=== PATIENT | male | born 1950 | race Caucasian/White ===

== ENCOUNTER 2020-06-08 07:41 | Outpatient (REF) | payer MEDICARE, SELFPAY ==
[2020-06-08 10:22] LABS: MANUAL DIFF FLAG NO
[2020-06-08 10:30] LABS: Basophils Percent Auto 0.7 % (0-2); Eosinophils Absolute Auto 0.1 X10*3/uL (0.0-0.4); Eosinophils Percent Auto 2.8 % (0-4); Imm Gran Abs Auto 0.03 X10*3/uL (0.00-0.03); Imm Gran Pct Auto 0.7 % (0.0-0.4); Lymphocytes Absolute Auto 0.9 X10*3/uL (1.2-4.9); Lymphocytes Percent Auto 19.7 % (20-40); Mean Corpuscular HGB Conc 32.4 g/dl (31.0-36.0); Mean Corpuscular Hemoglobin 28.9 pg (27.0-33.0); Mean Corpuscular Volume 89.2 fL (80-98); Mean Platelet Volume 10.2 fL (9.4-12.4); Monocytes Absolute Auto 0.6 X10*3/uL (0.1-1.2); Monocytes Percent Auto 13.7 % (2-11); Neutrophils Absolute Auto 2.9 X10*3/uL (2.0-8.3); Neutrophils Percent Auto 62.4 % (45-73); Platelet Count 195 X10*3/uL (160-400); Red Blood Count 4.15 X10*6/uL (4.60-5.80); Red Cell Distribution Width 13.1 % (11.0-16.0); White Blood Count 4.6 X10*3/uL (4.8-10.8)
[2020-06-08 10:51] LABS: Anion Gap 10 (12-20); Blood Urea Nitrogen 8 mg/dL (9-16); Calcium 8.8 mg/dL (8.4-10.2); Carbon Dioxide 28 mmol/L (22-29); Chloride 107 mmol/L (96-108); Estimated Glomerular Filt Rate > 60; Glucose Random 117 mg/dL (60-115); Iron 44 mcg/dL (45-160); Percent Iron Saturation 16 % (15-50); Sodium 141 mmol/L (135-145); Total Iron Binding Capacity 279 mcg/dL (228-428); Unsaturated Iron Binding 235 ug/dL
== END 2020-06-08 07:42 | disposition home or self-care (01) ==
LOC: HO.10HDL 07:41
PROVIDERS: Visit Provider Internal Medicine
DX: D64.9 Anemia, unspecified (principal); E78.00 Pure hypercholesterolemia, unspecified
CPT/HCPCS: 36415; 80048; 83540; 85025

== ENCOUNTER 2020-07-26 07:34 | Outpatient (REF) | payer MEDICARE, BC, SELFPAY ==
[2020-07-26 10:37] LABS: Cholesterol 117 mg/dL; HDL Cholesterol 38 mg/dL; LDL Cholesterol Calculated 58 mg/dl; Triglycerides 107 mg/dL
== END 2020-07-26 07:35 | disposition home or self-care (01) ==
LOC: HO.10HDL 07:34
PROVIDERS: Visit Provider Internal Medicine Cardiovascular Disease
DX: Z95.2 Presence of prosthetic heart valve (principal); Z95.1 Presence of aortocoronary bypass graft
CPT/HCPCS: 80061

== ENCOUNTER 2020-09-11 09:42 | Outpatient (REF) | payer MEDICARE, BC, SELFPAY ==
[2020-09-11 10:03] LABS: MANUAL DIFF FLAG NO
[2020-09-11 10:07] LABS: Basophils Absolute Auto 0.1 X10*3/uL (0.0-0.2); Basophils Percent Auto 1.2 % (0-2); Eosinophils Absolute Auto 0.1 X10*3/uL (0.0-0.4); Eosinophils Percent Auto 3.4 % (0-4); Hematocrit 42.3 % (42-52); Hemoglobin 13.8 g/dl (14.0-18.0); Imm Gran Abs Auto 0.04 X10*3/uL (0.00-0.03); Lymphocytes Percent Auto 25.1 % (20-40); Mean Corpuscular HGB Conc 32.6 g/dl (31.0-36.0); Mean Corpuscular Hemoglobin 28.9 pg (27.0-33.0); Mean Corpuscular Volume 88.5 fL (80-98); Mean Platelet Volume 9.8 fL (9.4-12.4); Monocytes Absolute Auto 0.8 X10*3/uL (0.1-1.2); Monocytes Percent Auto 18.7 % (2-11); Neutrophils Absolute Auto 2.1 X10*3/uL (2.0-8.3); Neutrophils Percent Auto 50.6 % (45-73); Platelet Count 216 X10*3/uL (160-400); Red Blood Count 4.78 X10*6/uL (4.60-5.80); Red Cell Distribution Width 13.2 % (11.0-16.0); White Blood Count 4.1 X10*3/uL (4.8-10.8)
[2020-09-11 10:32] LABS: Alanine Aminotransferase 16 U/L (0-40); Albumin Level 4.4 g/dL (3.5-5.0); Alkaline Phosphatase 91 U/L (39-117); Anion Gap 14 (12-20); Aspartate Amino Transferase 19 U/L (5-37); Bilirubin Total 0.6 mg/dL (0.0-1.0); Blood Urea Nitrogen 10 mg/dL (9-16); Calcium 9.1 mg/dL (8.4-10.2); Carbon Dioxide 28 mmol/L (22-29); Chloride 104 mmol/L (96-108); Estimated Glomerular Filt Rate > 60; Glucose Random 101 mg/dL (60-115); Iron 73 mcg/dL (45-160); Percent Iron Saturation 23 % (15-50); Potassium 4.8 mmol/l (3.3-5.1); Sodium 141 mmol/L (135-145); Total Iron Binding Capacity 318 mcg/dL (228-428); Total Protein 6.9 g/dL (6.5-8.0); Unsaturated Iron Binding 245 ug/dL
[2020-09-11 10:54] LABS: Vitamin D 25-OH Total 42.7 ng/mL (>30)
== END 2020-09-11 09:43 | disposition home or self-care (01) ==
LOC: HO.10HDL 09:42
PROVIDERS: Visit Provider Internal Medicine
DX: D64.9 Anemia, unspecified (principal); L40.9 Psoriasis, unspecified; E55.9 Vitamin D deficiency, unspecified
CPT/HCPCS: 36415; 80053; 82306; 83540; 85025

== ENCOUNTER 2021-01-16 10:24 | Outpatient (REF) | payer MEDICARE, BC, SELFPAY ==
[2021-01-16 10:50] LABS: MANUAL DIFF FLAG NO
[2021-01-16 10:59] LABS: Eosinophils Absolute Auto 0.1 X10*3/uL (0.0-0.4); Eosinophils Percent Auto 3.4 % (0-4); Hematocrit 43.5 % (42-52); Hemoglobin 13.9 g/dl (14.0-18.0); Imm Gran Abs Auto 0.03 X10*3/uL (0.00-0.03); Imm Gran Pct Auto 0.8 % (0.0-0.4); Lymphocytes Absolute Auto 0.9 X10*3/uL (1.2-4.9); Lymphocytes Percent Auto 23.6 % (20-40); Mean Corpuscular Hemoglobin 28.5 pg (27.0-33.0); Mean Corpuscular Volume 89.1 fL (80-98); Mean Platelet Volume 9.9 fL (9.4-12.4); Monocytes Absolute Auto 0.6 X10*3/uL (0.1-1.2); Monocytes Percent Auto 16.8 % (2-11); Neutrophils Absolute Auto 2.1 X10*3/uL (2.0-8.3); Neutrophils Percent Auto 54.4 % (45-73); Platelet Count 222 X10*3/uL (160-400); Red Blood Count 4.88 X10*6/uL (4.60-5.80); Red Cell Distribution Width 12.9 % (11.0-16.0); White Blood Count 3.8 X10*3/uL (4.8-10.8)
[2021-01-16 11:26] LABS: Alanine Aminotransferase 17 U/L (0-40); Albumin Level 4.4 g/dL (3.5-5.0); Alkaline Phosphatase 84 U/L (39-117); Anion Gap 12 (12-20); Aspartate Amino Transferase 19 U/L (5-37); Bilirubin Total 0.5 mg/dL (0.0-1.0); Blood Urea Nitrogen 7 mg/dL (9-16); Calcium 9.5 mg/dL (8.4-10.2); Carbon Dioxide 30 mmol/L (22-29); Chloride 105 mmol/L (96-108); Cholesterol 113 mg/dL; Estimated Glomerular Filt Rate > 60; Glucose Random 100 mg/dL (60-115); HDL Cholesterol 42 mg/dL; LDL Cholesterol Calculated 56 mg/dl; Potassium 4.9 mmol/L (3.3-5.1); Sodium 142 mmol/L (135-145); Triglycerides 76 mg/dL
[2021-01-16 11:29] LABS: Prostate Specific Antigen 1.15 ng/mL (<0.05-4.0)
== END 2021-01-16 10:25 | disposition home or self-care (01) ==
LOC: HO.10HDL 10:24
PROVIDERS: Visit Provider Internal Medicine
DX: Z12.5 Encounter for screening for malignant neoplasm of prostate (principal); E78.00 Pure hypercholesterolemia, unspecified; L40.9 Psoriasis, unspecified; I25.10 Atherosclerotic heart disease of native coronary artery without angina pectoris; N40.0 Benign prostatic hyperplasia without lower urinary tract symptoms
CPT/HCPCS: 36415; 80053; 80061; 84153; 85025

== ENCOUNTER 2021-05-07 09:01 | Outpatient (REF) | payer MEDICARE, BC, SELFPAY ==
[2021-05-07 10:22] LABS: MANUAL DIFF FLAG NO
[2021-05-07 10:26] LABS: Basophils Absolute Auto 0.1 X10*3/uL (0.0-0.2); Basophils Percent Auto 1.1 % (0-2); Eosinophils Absolute Auto 0.2 X10*3/uL (0.0-0.4); Eosinophils Percent Auto 3.4 % (0-4); Hematocrit 39.4 % (42-52); Hemoglobin 13.1 g/dl (14.0-18.0); Imm Gran Abs Auto 0.06 X10*3/uL (0.00-0.03); Imm Gran Pct Auto 1.4 % (0.0-0.4); Lymphocytes Absolute Auto 1.1 X10*3/uL (1.2-4.9); Lymphocytes Percent Auto 25.8 % (20-40); Mean Corpuscular HGB Conc 33.2 g/dl (31.0-36.0); Mean Corpuscular Hemoglobin 29.6 pg (27.0-33.0); Mean Corpuscular Volume 88.9 fL (80-98); Monocytes Absolute Auto 0.7 X10*3/uL (0.1-1.2); Monocytes Percent Auto 14.9 % (2-11); Neutrophils Absolute Auto 2.4 X10*3/uL (2.0-8.3); Neutrophils Percent Auto 53.4 % (45-73); Platelet Count 207 X10*3/uL (160-400); Red Blood Count 4.43 X10*6/uL (4.60-5.80); White Blood Count 4.4 X10*3/uL (4.8-10.8)
[2021-05-07 11:09] LABS: Alanine Aminotransferase 16 U/L (0-40); Albumin Level 3.9 g/dL (3.5-5.0); Alkaline Phosphatase 86 U/L (39-117); Anion Gap 12 (12-20); Aspartate Amino Transferase 16 U/L (5-37); Bilirubin Total 0.3 mg/dL (0.0-1.0); Blood Urea Nitrogen 11 mg/dL (9-16); Carbon Dioxide 28 mmol/L (22-29); Chloride 107 mmol/L (96-108); Estimated Glomerular Filt Rate > 60; Glucose Random 106 mg/dL (60-115); Potassium 4.5 mmol/L (3.3-5.1); Sodium 142 mmol/L (135-145); Total Protein 6.2 g/dL (6.5-8.0)
== END 2021-05-07 09:02 | disposition home or self-care (01) ==
LOC: HO.10HDL 09:01
PROVIDERS: Visit Provider Physician Assistant Medical
DX: L40.0 Psoriasis vulgaris (principal)
CPT/HCPCS: 36415; 80053; 85025

== ENCOUNTER 2021-07-31 09:37 | Outpatient (REF) | payer MEDICARE, BC, SELFPAY ==
[2021-07-31 10:22] LABS: MANUAL DIFF FLAG NO
[2021-07-31 10:30] LABS: Basophils Absolute Auto 0.1 X10*3/uL (0.0-0.2); Eosinophils Absolute Auto 0.1 X10*3/uL (0.0-0.4); Eosinophils Percent Auto 2.4 % (0-4); Hematocrit 41.5 % (42.0-52.0); Hemoglobin 13.8 g/dl (14.0-18.0); Imm Gran Abs Auto 0.04 X10*3/uL (0.00-0.03); Imm Gran Pct Auto 0.8 % (0.0-0.4); Lymphocytes Absolute Auto 1.1 X10*3/uL (1.2-4.9); Lymphocytes Percent Auto 22.1 % (20-40); Mean Corpuscular HGB Conc 33.3 g/dl (31.0-36.0); Mean Corpuscular Hemoglobin 29.4 pg (27.0-33.0); Mean Corpuscular Volume 88.5 fL (80.0-98.0); Mean Platelet Volume 10.1 fL (9.4-12.4); Monocytes Absolute Auto 0.9 X10*3/uL (0.1-1.2); Monocytes Percent Auto 17.9 % (2-11); Neutrophils Absolute Auto 2.8 x10*3/uL (2.0-8.3); Neutrophils Percent Auto 55.8 % (45-73); Platelet Count 249 X10*3/uL (160-400); Red Blood Count 4.69 X10*6/uL (4.60-5.80)
[2021-07-31 10:42] LABS: Alanine Aminotransferase 21 U/L (0-40); Albumin Level 4.3 g/dL (3.5-5.0); Alkaline Phosphatase 95 U/L (39-117); Anion Gap 13 (12-20); Aspartate Amino Transferase 20 U/L (5-37); Bilirubin Total 0.7 mg/dL (0.0-1.0); Blood Urea Nitrogen 10 mg/dL (9-16); Calcium 9.5 mg/dL (8.4-10.2); Carbon Dioxide 27 mmol/L (22-29); Chloride 103 mmol/L (96-108); Estimated Glomerular Filt Rate > 60; Glucose Random 102 mg/dL (60-115); Potassium 4.4 mmol/L (3.3-5.1); Sodium 139 mmol/L (135-145); Total Protein 6.9 g/dL (6.5-8.0)
== END 2021-07-31 09:38 | disposition home or self-care (01) ==
LOC: HO.10HDL 09:37
PROVIDERS: Visit Provider Internal Medicine
DX: I25.10 Atherosclerotic heart disease of native coronary artery without angina pectoris (principal); M54.10 Radiculopathy, site unspecified; Z95.2 Presence of prosthetic heart valve
CPT/HCPCS: 36415; 80053; 83735; 85025

== ENCOUNTER 2022-06-03 08:58 | Outpatient (REF) | payer MEDICARE, BC, SELFPAY ==
[2022-06-03 10:27] LABS: MANUAL DIFF FLAG NO
[2022-06-03 10:33] LABS: Basophils Absolute Auto 0.1 X10*3/uL (0.0-0.2); Basophils Percent Auto 1.1 % (0-2); Eosinophils Absolute Auto 0.2 X10*3/uL (0.0-0.4); Eosinophils Percent Auto 3.6 % (0-4); Hematocrit 41.5 % (42.0-52.0); Hemoglobin 13.4 g/dl (14.0-18.0); Imm Gran Abs Auto 0.02 X10*3/uL (0.00-0.03); Imm Gran Pct Auto 0.4 % (0.0-0.4); Lymphocytes Percent Auto 21.6 % (20-40); Mean Corpuscular HGB Conc 32.3 g/dl (31.0-36.0); Mean Corpuscular Hemoglobin 28.2 pg (27.0-33.0); Mean Corpuscular Volume 87.2 fL (80.0-98.0); Monocytes Absolute Auto 0.8 X10*3/uL (0.1-1.2); Monocytes Percent Auto 17.8 % (2-11); Neutrophils Absolute Auto 2.6 x10*3/uL (2.0-8.3); Neutrophils Percent Auto 55.5 % (45-73); Platelet Count 211 X10*3/uL (160-400); Red Blood Count 4.76 X10*6/uL (4.60-5.80); Red Cell Distribution Width 13.5 % (11.0-16.0); White Blood Count 4.7 X10*3/uL (4.8-10.8)
[2022-06-03 11:07] LABS: Alanine Aminotransferase 16 U/L (0-40); Albumin Level 4.3 g/dL (3.5-5.0); Alkaline Phosphatase 87 U/L (39-117); Anion Gap 13 (12-20); Aspartate Amino Transferase 17 U/L (5-37); Bilirubin Total 0.6 mg/dL (0.0-1.0); Blood Urea Nitrogen 11 mg/dL (9-16); Carbon Dioxide 29 mmol/L (22-29); Chloride 105 mmol/L (96-108); Cholesterol 110 mg/dL; Estimated Glomerular Filt Rate > 60; Glucose Fasting 92 mg/dL (60-99); HDL Cholesterol 37 mg/dL; LDL Cholesterol Calculated 54 mg/dl; Potassium 4.1 mmol/L (3.3-5.1); Sodium 143 mmol/L (135-145); Total Protein 6.8 g/dL (6.5-8.0); Triglycerides 97 mg/dL
[2022-06-03 11:18] LABS: Prostate Specific Antigen Scr 1.38 ng/mL (<0.05-4.0)
== END 2022-06-03 08:59 | disposition home or self-care (01) ==
LOC: HO.10HDL 08:58
PROVIDERS: Visit Provider Internal Medicine
DX: Z12.5 Encounter for screening for malignant neoplasm of prostate (principal); E78.00 Pure hypercholesterolemia, unspecified; I25.10 Atherosclerotic heart disease of native coronary artery without angina pectoris; R35.1 Nocturia
CPT/HCPCS: 36415; 80053; 80061; 84153; 85025

== ENCOUNTER 2023-01-03 07:34 | Outpatient (REF) | payer MEDICARE, BC, SELFPAY ==
[2023-01-03 10:50] LABS: Basophils Absolute Auto 0.1 X10*3/uL (0.0-0.2); Basophils Percent Auto 1.1 % (0-2); Eosinophils Absolute Auto 0.3 X10*3/uL (0.0-0.4); Eosinophils Percent Auto 5.8 % (0-4); Hematocrit 45.2 % (42.0-52.0); Hemoglobin 14.6 g/dl (14.0-18.0); Imm Gran Abs Auto 0.07 X10*3/uL (0.00-0.03); Imm Gran Pct Auto 1.3 % (0.0-0.4); Lymphocytes Absolute Auto 1.4 X10*3/uL (1.2-4.9); Lymphocytes Percent Auto 24.5 % (20-40); MANUAL DIFF FLAG NO; Mean Corpuscular HGB Conc 32.3 g/dl (31.0-36.0); Mean Corpuscular Hemoglobin 28.4 pg (27.0-33.0); Mean Corpuscular Volume 87.9 fL (80.0-98.0); Mean Platelet Volume 9.8 fL (9.4-12.4); Monocytes Absolute Auto 0.9 X10*3/uL (0.1-1.2); Monocytes Percent Auto 16.8 % (2-11); Neutrophils Absolute Auto 2.8 x10*3/uL (2.0-8.3); Neutrophils Percent Auto 50.5 % (45-73); Platelet Count 237 X10*3/uL (160-400); Red Blood Count 5.14 X10*6/uL (4.60-5.80); White Blood Count 5.5 X10*3/uL (4.8-10.8)
[2023-01-03 11:16] LABS: Anion Gap 12 (12-20); Blood Urea Nitrogen 12 mg/dL (9-16); Calcium 9.5 mg/dL (8.4-10.2); Carbon Dioxide 30 mmol/L (22-29); Chloride 106 mmol/L (96-108); Estimated Glomerular Filt Rate > 60; Glucose Random 57 mg/dL (60-115); Potassium 4.1 mmol/L (3.3-5.1); Sodium 144 mmol/L (135-145)
== END 2023-01-03 07:35 | disposition home or self-care (01) ==
LOC: HO.10HDL 07:34
PROVIDERS: Visit Provider Internal Medicine
DX: I25.10 Atherosclerotic heart disease of native coronary artery without angina pectoris (principal); E78.00 Pure hypercholesterolemia, unspecified; D64.9 Anemia, unspecified
CPT/HCPCS: 36415; 80048; 85025

== ENCOUNTER 2023-04-29 07:25 | Outpatient (REF) | payer MEDICARE, BC, SELFPAY ==
[2023-04-29 10:17] LABS: MANUAL DIFF FLAG NO
[2023-04-29 10:21] LABS: Basophils Percent Auto 0.7 % (0-2); Eosinophils Absolute Auto 0.1 X10*3/uL (0.0-0.4); Eosinophils Percent Auto 2.4 % (0-4); Hematocrit 44.1 % (42.0-52.0); Hemoglobin 14.3 g/dl (14.0-18.0); Imm Gran Abs Auto 0.04 X10*3/uL (0.00-0.03); Imm Gran Pct Auto 0.7 % (0.0-0.4); Lymphocytes Absolute Auto 0.8 X10*3/uL (1.2-4.9); Lymphocytes Percent Auto 14.8 % (20-40); Mean Corpuscular HGB Conc 32.4 g/dl (31.0-36.0); Mean Corpuscular Hemoglobin 28.2 pg (27.0-33.0); Mean Platelet Volume 9.9 fL (9.4-12.4); Monocytes Absolute Auto 0.9 X10*3/uL (0.1-1.2); Monocytes Percent Auto 17.2 % (2-11); Neutrophils Absolute Auto 3.5 x10*3/uL (2.0-8.3); Neutrophils Percent Auto 64.2 % (45-73); Platelet Count 241 X10*3/uL (160-400); Red Blood Count 5.07 X10*6/uL (4.60-5.80); Red Cell Distribution Width 13.2 % (11.0-16.0); White Blood Count 5.5 X10*3/uL (4.8-10.8)
[2023-04-29 10:44] LABS: Alanine Aminotransferase 16 U/L (0-40); Albumin Level 4.2 g/dL (3.5-5.0); Alkaline Phosphatase 90 U/L (39-117); Anion Gap 10 (12-20); Aspartate Amino Transferase 18 U/L (5-37); Bilirubin Total 0.6 mg/dL (0.0-1.0); Blood Urea Nitrogen 15 mg/dL (9-16); Calcium 9.4 mg/dL (8.4-10.2); Carbon Dioxide 29 mmol/L (22-29); Chloride 107 mmol/L (96-108); Cholesterol 127 mg/dL (<200); Estimated Glomerular Filt Rate > 60; Glucose Fasting 95 mg/dL (60-99); HDL Cholesterol 39 mg/dL (>40); LDL Cholesterol Calculated 66 mg/dL (<100); Potassium 4.2 mmol/L (3.3-5.1); Sodium 142 mmol/L (135-145); Triglycerides 114 mg/dL (<150)
[2023-04-29 11:05] LABS: Prostate Specific Antigen Scr 1.73 ng/mL (<0.05-4.0)
== END 2023-04-29 07:26 | disposition home or self-care (01) ==
LOC: HO.10HDL 07:25
PROVIDERS: Visit Provider Internal Medicine
DX: I25.10 Atherosclerotic heart disease of native coronary artery without angina pectoris (principal); E78.00 Pure hypercholesterolemia, unspecified; R35.1 Nocturia; Z12.5 Encounter for screening for malignant neoplasm of prostate
CPT/HCPCS: 36415; 80053; 80061; 84153; 85025

== ENCOUNTER 2024-02-03 07:49 | Outpatient (REF) | payer MEDICARE, BC, SELFPAY ==
[2024-02-03 10:49] LABS: MANUAL DIFF FLAG NO
[2024-02-03 10:54] LABS: Basophils Absolute Auto 0.1 X10*3/uL (0.0-0.2); Eosinophils Absolute Auto 0.1 X10*3/uL (0.0-0.4); Eosinophils Percent Auto 1.7 % (0-4); Hematocrit 43.6 % (42.0-52.0); Hemoglobin 14.2 g/dl (14.0-18.0); Imm Gran Abs Auto 0.09 X10*3/uL (0.00-0.03); Imm Gran Pct Auto 1.5 % (0.0-0.4); Lymphocytes Percent Auto 17.4 % (20-40); Mean Corpuscular HGB Conc 32.6 g/dl (31.0-36.0); Mean Corpuscular Hemoglobin 28.6 pg (27.0-33.0); Mean Corpuscular Volume 87.9 fL (80.0-98.0); Mean Platelet Volume 9.7 fL (9.4-12.4); Monocytes Percent Auto 16.8 % (2-11); Neutrophils Absolute Auto 3.7 x10*3/uL (2.0-8.3); Neutrophils Percent Auto 61.6 % (45-73); Platelet Count 188 X10*3/uL (160-400); Red Blood Count 4.96 X10*6/uL (4.60-5.80); Red Cell Distribution Width 13.7 % (11.0-16.0)
[2024-02-03 11:57] LABS: Alanine Aminotransferase 17 U/L (0-40); Albumin Level 4.2 g/dL (3.5-5.0); Alkaline Phosphatase 96 U/L (39-117); Anion Gap 12 (12-20); Aspartate Amino Transferase 20 U/L (5-37); Bilirubin Total 0.3 mg/dL (0.0-1.0); Blood Urea Nitrogen 12 mg/dL (9-16); Calcium 9.5 mg/dL (8.4-10.2); Carbon Dioxide 29 mmol/L (22-29); Chloride 107 mmol/L (96-108); Cholesterol 149 mg/dL (<200); Estimated Glomerular Filt Rate > 60; Glucose Fasting 101 mg/dL (60-99); HDL Cholesterol 53 mg/dL (>40); LDL Cholesterol Calculated 56 mg/dL (<100); Potassium 3.7 mmol/L (3.3-5.1); Sodium 144 mmol/L (135-145); Total Protein 7.1 g/dL (6.5-8.0); Triglycerides 200 mg/dL (<150)
== END 2024-02-03 07:50 | disposition home or self-care (01) ==
LOC: HO.10HDL 07:49
PROVIDERS: Visit Provider Internal Medicine
DX: Z12.5 Encounter for screening for malignant neoplasm of prostate (principal); N18.9 Chronic kidney disease, unspecified; I10 Essential (primary) hypertension; E78.00 Pure hypercholesterolemia, unspecified
CPT/HCPCS: 36415; 80053; 80061; 84153; 85025

== ENCOUNTER 2024-08-26 07:20 | Outpatient (RCR) | payer MEDICARE, BC, SELFPAY | END 2024-10-11 13:57 | disposition home or self-care (01) | LOC: HO.WCC 07:20 | PROVIDERS: PCP Internal Medicine; Visit Provider Surgery | DX: L89.893 Pressure ulcer of other site, stage 3 (principal); L84 Corns and callosities; Z79.899 Other long term (current) drug therapy | CPT/HCPCS: 11042; 99212 ==

== ENCOUNTER 2024-09-16 10:30 | Outpatient (REF) | payer MEDICARE, BC, SELFPAY ==
--- NOTE | ~2024-09-16 | XR_ITS ---
EXAMINATION: XR FOOT 3 OR MORE VIEWS LEFT HISTORY: LEFT FOOT PAIN COMPARISON: There are no prior studies available for comparison. FINDINGS: Three views of the left foot are submitted. Osseous mineralization is normal. There is a probable old fracture deformity of the base of the 5th metatarsal. There is no acute fracture or dislocation. The joint spaces are preserved. There is soft tissue swelling over the 5th MTP joint. XR/XR foot LT min 3V IMPRESSION: Soft tissue swelling over the 5th MTP joint. No evidence of acute fracture of the left foot. Electronically signed by: Conor Díaz MD 09/16/2024 01:20 PM MAGUI
--- OUTSIDE RECORDS SUMMARY | 2024-09-16 14:08 | XMS_ITS ---
Author Organization [facility] Address [address] [address] Care Team Providers Care Educational Adviser Name Role Phone Rad Antonio MD Primary Care Provider Unavaila Jimmy Rojas Unavailable [phone] Allergies Allergen (clinical drug ingredient) Drug/Non Drug Allergy documented on EMR Reaction Allergy Type Onset Date Status amoxicillin Amoxicillin Unknown Drug Allergy Act erica Cortisone Unknown Drug Allergy Active Substance with penicillin structure and antibacterial mechanism of action (substance) Penicillins Unknown Drug Allergy Active REASON FOR VISIT At Risk Footcare, Painful Nail(s) aggravated by shoes and causing difficulty standing/walking., Wart(s), Open sore Medications Medication SIG (Take, Route, Fr equency, Duration) Notes Start Date End Date Status Lipitor 10 MG 1 tablet Orally Once a day for 30 day(s) Unknown Zolpidem Tartrate Un known Ammonium Lactate 12 % 1 application to a ffected area Externally to feet Twice a day for 30 days Unknown Social History Tobacco Use: Social History Observation Description Date Details (start date - stop date) Former Smoker NA - NA Tobacco Use/Smoking Question Answer Notes Are you a: former smoker Additional Findings: Tobacco Non-User Current no n-smoker Alcohol Screen Question Answer Notes Did you have a drink containing alcohol in the p ast year? No Points 0 Interpretation Negative Tobacco use other than smoking: Question Answer Notes Are you an other tobacco user? No Problems Problem Type SNOMED Code ICD Code Onset Dates Problem Status W/U Status Risk Notes Problem Ischemic ulcer of left foot with fat layer exposed (L97.522) Active confirmed Response to treatment Worse Vital Signs Height 5ft 7.5in in 07/27/2024 Weight 158 lbs 07/27/2024 BMI 24.38 kg/m2 07/27/2024 Blood pressure systolic 120 mm Hg 07/27/20 24 Blood pressure diastolic 63 mm Hg 024 Procedures Procedure Date Ordered Date Performed Result Body Sit e 15016-HCEBATG NAIL, 6 OR MORE 07/27/2024 N/A 28870-[place] Destruction, 1-14 07/27/2024 N/A 77829-HPHHXZU SKIN/TISSUE 07/27/2024 N/A 77906-ARFI SKIN LESIONS, OVER 4 07/27/2024 N/A Encounters Encounter Location Date Provider Diagnosis [facility] [place] [address] [place] [address] 07/27/2024 Jimmy Torres Atherosclerosis of wrangell artery of both lower extremities, with unspecified presence of clinical manifestation I70.203 ; Plantar wart B07.0 ; Tinea unguium B35.1 ; Pain in right toe(s) M79.674 ; Pain in left toe(s) M79.675 ; Right foot pain M79.671 and Ischemic ulcer of left foot with fat layer exposed L97.522 Assessments Encounter Date Diagnosis (ICD Code) Assessment Notes Treatment Notes Treatment Clinical Notes Section Notes 07/27/2024 Atherosclerosis of wrangell artery of both lower extremities, with unspecified presence of clinical manifestation (ICD-10 - I70.203) 07/27/2024 Plantar wart (ICD-10 - B07.0) 07/27/2024 Tinea unguium (ICD-10 - B35.1) 07/27/2024 Pain in right toe(s) (ICD-10 - M79.674) 07/27/2024 Pain in left toe(s) (ICD-10 - M79.675) 07/27/2024 Right foot pain (ICD-10 - M79.671) 07/27/2024 Ischemic ulcer of left foot with fat layer exposed (ICD-10 - L97.522) Response to treatment Worse Patient Educated with: WOUND CARE INSTRUCTIONS. pdf (WOUND CARE INSTRUCTIONS. pdf) Plan Of Treatment Treatment Notes Assessment Notes Ischemic ulcer of left foot with fat layer exposed Patient Educated with: WOUND CARE INSTRUCTIONS.pdf (WOUND CARE INSTRUCTIONS.pdf) Pending Test Test Name Order Date 30284-OERBVQL NAIL, 6 OR MORE 07/27/2024 11777-Wktf Destruction, 1-14 07/27/2024 21066-UOUIFLK SKIN/TISSUE 07/27/2024 43761-HJUJ SKIN LESIONS, OVER 4 07/27/20 24 Next Appt Details Follow Up: 2 Months, Reason: Provider Name:Jimmy Torres , 10/22/2024 09:00:00 AM, [address] [place] [address], [id number], Procedure Notes * Category Sub-Category Detail Notes Wart Treatment Procedure Verruca, as desc ribed in exam, were debrided to pin-point bleeding margins with sterile 15 surgical blade, silver nitrate chemocautery applied, recomm. immune-boosting meds such as zinc, recomm. follow up with topical chemosurgical agents, Pt defers any other forms of tx - 69154 Debride Nail 6-10 Nail debridement Due to the cl inical pathology outlined in the exam findings, performance of this nail treatment is medically necessary as its management by an unskilled/untrained nonprofessional would put this patients foot and overall health at risk. Therefore, debridement to affected nail(s), as described in exam, was performed extensively to reduce/remove overall nail length, girth, thickness, subungual debris, and necrotic tissue, by manual and/or electrical means through the use of a nail nipper and/or dremel-type chisel grinder, to a more viable healthy nail plate or bed tissue 6-10 nails in total. Silver nitrate was used for any petechial bleeding as necessary. Definitive antifungal treatment options, both pharmaceutical and surgical, have been reviewed and discussed with the patient. The patient solely prefers the use of intermittent/as needed professional debridement services for their nail condition and understands the need for additional periodic treatments to maintain effectiveness in symptomatic relief - 87531 Debride skin and subQ Open wound ISCHEMIC: Physician of record performed open wound selective debridement of devitalized necrotic/nonviable soft tissue, fibrin, exudate, epidermis, dermis, thru skin and subcutaneous fat tissue, first 20 sq cm or less, using sharp dissection with sterile 15 blade, and/or tissue nippers. ANESTHESIA was accomplished TOPICALLY with Lidocaine Hydrochloride Jelly 2 percent, Sterile antibiotic dressing applied. Hemostasis was controlled through direct pressure. Post debridement measurements: 22mm x 12mm x 3mm. Character of the wound post debriement is stable (12122) Keratoma Treatment Parring or Cutting o f Benign Hyperkeratotic Lesion(s) (-57) More than 4 Lesions - Due to the at risk nature of the patients medical condition as documented in the exam findings, performance of this keratoderma treatment is medically necessary as its management by an unskilled/untrained nonprofessional would put this patients foot and overall health at risk. Therefore, the benign hyperkeratotic lesions, ( 7) in total, locations as stated and described in the exam, were pared, and/or cut utilizing a sterile 15 blade, tissue nippers, and/or power [employer] instrumentation - 00800, Q8 Progress Notes * Mark JAYDOB: [birth year] (73 yo M)Acc No.[id number]:07/27/2024 Progress Note Patient:?MARLO Mark Ferguson Provider:?Jimmy Torres DPM :1950???Age:73 Y???Sex:Male Roberth e:07/27/2024 Address:[address] [place], [place] [id number] Pcp:Rad Antonio MD Subjective: * Chief Complaints: * ???At Risk FootcarePainful N ail(s) aggravated by shoes and causing difficulty standing/walking.Wart(s)Open sore * HPI: ???At Risk footcare:?Pt States Last PCP Visit:?Date?01/28/2024 States has an appt with PCP soon - in 2 weeks ???Skin problems:?Treatments:?Local care consisting of daily distilled water wound cleanse, topical antibiotic as recommended, application of sterile dressing, offloading/pressure reduction via rest, shoe modification, insert modification, accommodative padding, assisted ambulation via cane, and surgical debridement.? * ROS:?General/Constitutional:?Nausea?denies.?Vomiting?denies.?Hunger Thirst?denies.?Loss appetite?denies.?Chills?denies.?Fatigue?denies.?Fever?denies.?Night Sweats?denies.?Unexplained weight loss?denies.?Unexplained weight gain?denies.?HEENTM:?Dentures?admits.?Dizziness?denies.?Glasses/contacts?denies.?Retinopathy?de nies.?Blurred/double vision?denies.?TMJ?denies.?Discharge/drainage?denies.?Implants?denies.?Sore throat?denies.?Dental implants?denies.?Hard of hearing ?denies.?Difficulty chewing/swallowing/speaking?denies.?Nose bleeds?denies.?Sore mouth?denies.?Respiratory:?On Oxygen?denies.?Pneumonia/pleurisy?denies.?Bronchitis?denies.?Emphysema?denies.?C oughing?denies.?Cough blood?denies.?Shortness of breath?denies.?Wheezing?denies.?Cardiovascular:?Pacemaker?denies.?MVP?denies.?WPW?denies.?CHF?denies.?Heart attack?denies.?Septal defect?denies.?Rapid beat?denies.?Chest pain ?denies.?Atrial Fib.?denies.?Murmur/Palpitations?denies.?Gastrointestinal:?Hemorrhoids?denies.?Stomach/Abdominal pain?denies.?Dark blood stool?denies.?Irritable bowel ?denies.?Constipation?denies.?Diarrhea?denies.?Hematology:?Swelling?denies.?Clots?denies.?Varicose Veins?admits.?Bruising?denies.?Bleeding problem?denies.?Genitourinary:?Blood urine?denies.?Frequent/Painfu/urination/bladder control?denies.?Kidney stones?denies.?Infection (UTI)?denies.?Nephropathy?denies.?sex trans dis (STD)?denies.?Prostate?denies.?Musculoskeletal:?Hammertoes?admits.?Bunions?denies.?Back Pain?denies.?Muscle Cramps/ Resting?denies.?Muscle cramps / walking?denies.?Generalized aches and pains?denies.?Weakness?denies.?Integ.:?Thurman?denies.?Scars?denies.?Corns/calluses?admits.?Ingrown nails?admits.?Painful nails?admits.?Open Sores?denies.?Rashes?denies.?Neurologic:?Difficulty sleeping?admits.?Brain disorder?denies.?Numbness?denies.?Balance trouble?denies.?Confusion?denies.?Fainting/blackouts?denies.?Tingling?denies.?Tr emors?denies.? * Medical History:? * Surgical History:?hip replac ement 04/1994knee replacement 04/1996 * Hospitalization/Major Diagno stic Procedure:?Denies Past Hospitalization * Family History:?Mother: dece ased, cancer.?Father: , stroke.? * Social History:?Tobacco Use:?Tobacco Use/Smoking?Are you a:?former smoker ?Additional Findings: Tobacco Non-User?Current non-smoker ?Tobacco use other than smoking?Are you an other tobacco user??No ???Drugs/Alcohol:?Drugs?Have you used drugs other than those for medical reasons in the past 12 months??No ?Alcohol Screen?Did you have a drink containing alcohol in the past year??No ?Points?0 ?Interpretation?Negative ???Miscellaneous:?Caffeine: yes, Soda. ?Children: no, none. ?Exercise: yes, walking. ?Marital status: single. 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 * Medications:?UnknownLipitor 10 MG Tablet 1 tablet Orally Once a day Zolpidem Tartrate Ammonium Lactate 12 % Cream 1 application to affected area Externally to feet Twice a day Medication List reviewed and reconciled with the patientUnknown Lipitor 10 MG Tablet 1 tablet Orally Once a day Unknown Zolpidem Tartrate Unknown Ammonium Lactate 12 % Cream 1 application to affected area Externally to feet Twice a day Medication List reviewed and reconciled with the patient * Allergies:?AmoxicillinCortis onePenicillinsyes[Allergies Verified] Objective: * Vitals:?Ht:5ft 7.5in, Wt:158 , BMI:24.38, Shoe size:8, BP:120/63mm Hg, Ht-cm: 171.45 cm, Wt-k.67 kg. * Examination: ???Vascular: ?DP PULSES(B):?0/4, RIGHT, 1/4, LEFT.?PT PULSES(B):? 0/4, B/L.?CAPILLARY FILL TIME:? delayed, all digits, B/L.?TROPHIC CONDITION-TEXTURE/ELASTICITY/TURGOR/HAIR GROWTH(B):? decreased,?with sparse to absent hair growth, B/L.?TEMPERTURE GRADIENT(C):? decreased, cool to cool, proximal to distal, B/L.?PIGMENTATION:? mottled, B/L.?EDEMA(C):? 1/4, non-pitting, without aching pain, B/L, Ankle(s).?CLAUDICATION(C):?denies, B/L.?REST PAIN:?denies, B/L.?VARICOSITIES:? present, moderate, nonpainful, B/L.?Nails: ?NAILS are:?Elongated, overgrown, dystrophic, lytic, greater than 3mm thick, discolored and friable with crumbly malodorous subungual debris, with pain on palpation,TA,T1,T2,T4,T5,T6,T7,T9.?Dermatologic: ?SKIN FINDINGS:?Skin exam reveals Keratotic lesion(s) located at, Medial plantar, IPJ, TA, Medial plantar, IPJ, T5, SUB MTH (s), 1, Right , SUB MTH (s) , 3 , Left , SUB MTH (s) , 4 , Left , Plantar, Heel(s) , B/L.?VERRUCA:?Reveals a Single , multi-loculated , mosaically patterned, round, raised, flat-topped, petechial bleeding papulae(s), with cauliflower appearance and interrruption of skin lines, pain to lateral compression, and size estimated at 3mm diameter, plantar Forefoot, RIGHT.?ULCER:? LOCATION,?Plantar, 5 MTH, LEFT, NOW, SIZE, 22mm X 7mm X 3mm, BASE, fibro-granular, RIM, hyperkeratotic, UNDERMINING, mild, TRACKING, Sub Q with Fat layer exposed, DRAINAGE, serosanguineous, moderate, NECROTIC TISSUE, loosely-adherent, yellow slough, MALODOR, absent, CALOR, absent, ERYTHEMA, absent.? Assessment: * Assessment: 1.?Plantar wart - B07.0 (Kaylan aurelio)???Specify :RIGHT???2.?Atherosclerosis of wrangell artery of both lower extremities, with unspecified presence of clinical manifestation - I70.203???3.?Tinea unguium - B35.1???4.?Pain in right toe(s) - M79.674???5.?Pain in left toe(s) - M79.675???6.?Right foot pain - M79.671???7.?Ischemic ulcer of left foot with fat layer exposed - L97.522???Notes :Response to treatment Worse??? Plan: * Treatment: 2.?Atherosclerosis of wrangell artery of both lower extremities, with unspecified presence of clinical manifestation?Procedure: 42373-FASR SKIN LESIONS, OVER 4 3.?Tinea unguium?Procedure: 91820-FQJGIBP NAIL, 6 OR MORE 4.?Ischemic ulcer of left fo ot with fat layer exposed?Procedure: 12080-SHTFWNM SKIN/TISSUE Notes: Patient Educated with: WOUND CARE INSTRUCTIONS.pdf (WOUND CARE INSTRUCTIONS.pdf)?? * Procedures:?Debride Nail 6-10:?Nail debridement?Due to the clinical pathology outlined in the exam findings, performance of this nail treatment is medically necessary as its management by an unskilled/untrained nonprofessional would put this patients foot and overall health at risk. Therefore, debridement to affected nail(s), as described in exam, was performed extensively to reduce/remove overall nail length, girth, thickness, subungual debris, and necrotic tissue, by manual and/or electrical means through the use of a nail nipper and/or dremel-type chisel grinder, to a more viable healthy nail plate or bed tissue 6-10 nails in total. Silver nitrate was used for any petechial bleeding as necessary. Definitive antifungal treatment options, both pharmaceutical and surgical, have been reviewed and discussed with the patient. The patient solely prefers the use of intermittent/as needed professional debridement services for their nail condition and understands the need for additional periodic treatments to maintain effectiveness in symptomatic relief - 78135.?Debride skin and subQ:?Open wound?ISCHEMIC: Physician of record performed open wound selective debridement of devitalized necrotic/nonviable soft tissue, fibrin, exudate, epidermis, dermis, thru skin and subcutaneous fat tissue, first 20 sq cm or less, using sharp dissection with sterile 15 blade, and/or tissue nippers. ANESTHESIA was accomplished TOPICALLY with Lidocaine Hydrochloride Jelly 2 percent, Sterile antibiotic dressing applied. Hemostasis was controlled through direct pressure. Post debridement measurements: 22mm x 12mm x 3mm. Character of the wound post debriement is stable (58334).?Keratoma Treatment:?Parring or Cutting of Benign Hyperkeratotic Lesion(s)?(-57) More than 4 Lesions - Due to the at risk nature of the patients medical condition as documented in the exam findings, performance of this keratoderma treatment is medically necessary as its management by an unskilled/untrained nonprofessional would put this patients foot and overall health at risk. Therefore, the benign hyperkeratotic lesions, ( 7) in total, locations as stated and described in the exam, were pared, and/or cut utilizing a sterile 15 blade, tissue nippers, and/or power [employer]remel instrumentation - 59947, Q8.?Wart Treatment:?Procedure?Verruca, as described in exam, were debrided to pin-point bleeding margins with sterile 15 surgical blade, silver nitrate chemocautery applied, recomm. immune-boosting meds such as zinc, recomm. follow up with topical chemosurgical agents, Pt defers any other forms of tx - 64493.? * Procedure Codes:?97693 DEBRI DE SKIN/TISSUE, Modifiers: XS 97987 DEBRIDE NAIL, 6 OR MORE, Modifiers: XS 04825 Wart Destruction, 1-14, Modifiers: XS 15166 TRIM SKIN LESIONS, OVER 4, Modifiers: XS , Q8 * Preventive Medicine:? ??Counseling:?Consult:?Wound Care Center Consult due to pedal risk of limb/life, Pt indicated understanding the recommendations and accepts this treatment plan. An appointment will be made for the patient while they are here today, Wound Care Center was contacted. When todays office notes are received, they state they will contact patient for appt.?Ulcer:?A detailed plan of care was reviewed with the patient. We emphasized the fact that the patient takes on an active participating role in the treatment process and emphasized to them that they are an included, valued, and important member of the wound healing team in order to reach an expedient successful outcome. The patient agreed to follow their medically recommended diet while increasing their protein intake if safely able to do so, maintain proper bodily hydaration, abide by weight-bearing restrictions at all times, quit all current smoking habits if any, and diligently follow any/all dressing change instructions. It was clearly made known to the patient that if they fail to do their part, they will likely extend their course of treatment as well as possibly increase their risk of adverse events including amputation. The patient was instructed on importance of proper wound care consisting of pressure reduction, and proper maintainance of a moist wound environment. The patient is to cleanse the wound with warm soapy water/peroxide/saline, or betadine BID based on product availability. The patient is to apply ( Rx Medihoney, ) Antibiotic to the wound and cover with a DSD as directed. The patient was instructed to change dressings according to orders, or PRN saturation, leaks. The patient was instructed to monitor and report any signs or symptoms of infection or any untoward reactions. Precautions Taken: Offloading/Pressure reduction via rest/ limited activity to essential to daily life only, cane, recommended knee scooter - pt prefers cane, shoe modification, accommodative padding, sharp debridement, and take/apply medication as directed. THE GOALS of wound debridement to remove devitilized tissue, decrease risk for infection, promote wound healing and prevent further complication were discussed/reviewed. Debridement frequency as indicated, Referral to Wound Care Center due to pedal risk of limb/life, [facility] was contacted. When today's office notes are received, they state they will contact patient for appt.? * Follow Up:?2 Months * Images: * Sign off status: Completed true * Provider:?Jimmy Torres DPM Date:?2023 Generated for Sal weinstein/Bárbara/Shilo on:?09/16/2024 02:08 PM EST History and Physical Notes * HPI (History of Present Illness) Category Sub-Category Detail Notes Category Not es Skin problems Treatments: Local care consi sting of daily distilled water wound cleanse, topical antibiotic as recommended, application of sterile dressing, offloading/pressure reduction via rest, shoe modification, insert modification, accommodative padding, assisted ambulation via cane, and surgical debridement At Risk footcare Pt States Last PCP Visit: Date: 01/28/2024 States has an appt with PCP soon - in 2 weeks Examination Category Sub-Category Detail Notes Category Not es Dermatologic SKIN FINDINGS: Skin exam reveal s Keratotic lesion(s) located at, Medial plantar, IPJ, TA, Medial plantar, IPJ, T5, SUB MTH (s), 1, Right , SUB MTH (s) , 3 , Left , SUB MTH (s) , 4 , Left , Plantar, Heel(s) , B/L ULCER: LOCATION, Plantar, 5 MTH, LEFT, NOW, SIZE, 22mm X 7mm X 3mm, BASE, fibro- granular, RIM, hyperkeratotic, UNDERMINING, mild, TRACKING, Sub Q with Fat layer exposed, DRAINAGE, serosanguineous, moderate, NECROTIC TISSUE, loosely-adherent, yellow slough, MALODOR, absent, CALOR, absent, ERYTHEMA, absent VERRUCA: Reveals a Single , m ulti-loculated , mosaically patterned, round, raised, flat-topped, petechial bleeding papulae(s), with cauliflower appearance and interrruption of skin lines, pain to lateral compression, and size estimated at 3mm diameter, plantar Forefoot, RIGHT Vascular DP PULSES (B): 0/4, RIGHT, 1/4, LEFT PT PULSES (B): 0/4, B/L CAPILLARY FILL TIME: delayed, all digits , B/L TEMPERTURE GRADIENT (C): decreased, cool to cool, proximal to distal, B/L TROPHIC CONDITION-TEXTURE/ELASTICITY/TURGOR/HAIR GROWTH (B): decreased, with sparse to absent hair gr owth, B/L EDEMA (C): 1/4, non-pitting, wi thout aching pain, B/L, Ankle(s) VARICOSITIES: present, moderate, n onpainful, B/L CLAUDICATION (C): denies, B/L REST PAIN: denies, B/L PIGMENTATION: mottled, B/L Nails NAILS are: Elongated, overg rown, dystrophic, lytic, greater than 3mm thick, discolored and friable with crumbly malodorous subungual debris, with pain on palpation,TA,T1,T2,T4,T5,T6,T7,T9
--- OUTSIDE RECORDS SUMMARY | 2024-09-16 14:09 | XMS_ITS ---
Author Organization [facility] Address [address] [place] [address] Care Team Providers Care Portable Sawmill Operator Name Role Phone Rad Antonio MD Primary Care Provider UnavailJimmy Melo [phone] REASON FOR VISIT [facility] Encounters Encounter Location Date Provider Diagnosis [address] [address] 07/27/2024 Jimmy Torres Plan Of Treatment Next Appt Details Provider Name:Jimmy Torres , 10/22/2024 09:00:00 AM, [address] [place], [address], Progress Notes * Mark JAYDOB: [birth year] (73 yo M)Acc No.[id number]:07/27/2024 Patient:?Mark JAY :1950???Age:73 Y???Sex:Male Address:[address] [address], [place], [address] * true * Date:? Generated for Printi js/Bárbara/eTransmitting on:?09/16/2024 02:08 PM EST
--- OUTSIDE RECORDS SUMMARY | 2024-09-16 14:09 | XMS_ITS ---
Author Organization [facility] Address [address] [place] [address] Care Team Providers Care Scientific Research Associate Name Role Phone Rad Antonio MD Primary Care Provider Unavaila Jimmy Rojas [phone] REASON FOR VISIT [facility] [place] care Encounters Encounter Location Date Provider Diagnosis [address] [address] 07/27/2024 Jimmy Torres Plan Of Treatment Next Appt Details Provider Name:Jimmy Torres , 10/22/2024 09:00:00 AM, [address] [place], [address], Progress Notes * Mark JAYDOB: [birth year] (73 yo M)Acc No.[id number]:07/27/2024 Patient:?Mark JAY :1950???Age:73 Y???Sex:Male Address:[address] [address], [place], [address] * true * Date:? Generated for Printi js/Bárbara/eTransmitting on:?09/16/2024 02:08 PM EST
--- OUTSIDE RECORDS SUMMARY | 2024-09-16 14:09 | XMS_ITS | Patient Health Record ---
[facility] Organization [facility] Address [address] [facility] [place] [address] Care Team Providers Care Patient Transportation Driver Name Role Phone Rad Antonio MD Primary Care Provider Unavaila Jimmy Rojas Unavailable [phone] Allergies Allergen (clinical drug ingredient) Drug/Non Drug Allergy documented on EMR Reaction Allergy Type Onset Date Status amoxicillin Amoxicillin Unknown Drug Allergy Act erica Cortisone Unknown Drug Allergy Active Substance with penicillin structure and antibacterial mechanism of action (substance) Penicillins Unknown Drug Allergy Active Reason For Referral No Information Medications Medication SIG (Take, Route, Fr equency, Duration) Notes Start Date End Date Status Lipitor 10 MG 1 tablet Orally Once a day for 30 day(s) Unknown Zolpidem Tartrate Un known Ammonium Lactate 12 % 1 application to a ffected area Externally to feet Twice a day for 30 days Unknown Immunizations Vaccine Route Administration Date Status Comme nts COVID-19 Matthew & Matthew/Mary Unknown 08/02/2021 Administered 12/01/2020 Social History Tobacco Use: Social History Observation [...] Problem Status W/U Status Risk Notes Problem Plantar wart (09728359) Plantar wart (B07.0) Active confirmed Problem [id number] Atherosclerosis of cheesh-na artery of both lower extremities, with unspecified presence of clinical manifestation (I70.203) Active confirmed Problem Ischemic ulcer o f left foot, limited to breakdown of skin (L97.521) Active confirmed Response to treatment Improvement Problem Ischemic ulcer o f left foot with fat layer exposed (L97.522) Active confirmed Response to treatment Worse Vital Signs Blood pressure diastolic 63 mm Hg 07/27/2024 Height 5ft 7.5in in 07/27/2024 Blood pressure systolic 120 mm Hg 07/27/2024 Weight 158 lbs 07/27/2024 BMI 24.38 kg/m2 07/27/2024 Procedures Procedure Date Ordered Date Performed Result Body Sit e 10344-CVGTSWR NAIL, 6 OR MORE 10/21/2023 N/A 50830-Xwds Destruction, 1-14 10/21/2023 N/A 24128-XSGX SKIN LESIONS, OVER 4 10/21/2023 N/A 71592-YJEVPOM NAIL, 6 OR MORE 01/23/2024 N/A 56416-Czvp Destruction, 1-14 01/23/2024 N/A 70492-VYTR SKIN LESIONS, OVER 4 01/23/2024 N/A 57425-SGFEALQ NAIL, 6 OR MORE 04/27/2024 N/A 53931-Xait Destruction, 1-14 04/27/2024 N/A 90952-NAXV SKIN LESIONS, OVER 4 04/27/2024 N/A 50099-QZRVDLX SKIN/TISSUE 06/18/2024 N/A 68267- Debride <25 sq cm 07/06/2024 N/A 94482-CESFPWL NAIL, 6 OR MORE 07/27/2024 N/A 37957-Vuai Destruction, 1-14 07/27/2024 N/A 76746-FBLOZNI SKIN/TISSUE 07/27/2024 N/A 50409-DVLJ SKIN LESIONS, OVER 4 07/27/2024 N/A Encounters Encounter Location Date Provider Diagnosis [facility] [place] [address] [place] [address] 10/21/2023 Jimmy Torres Atherosclerosis of cheesh-na artery of both lower extremities, with unspecified presence of clinical manifestation I70.203 ; Plantar wart B07.0 ; Tinea unguium B35.1 ; Pain in right toe(s) M79.674 ; Pain in left toe(s) M79.675 and Right foot pain M79.[address] [address] 01/23/2024 Jimmyfrancisco CarsonBrian Atherosclerosis of cheesh-na artery of both lower extremities, with unspecified presence of clinical manifestation I70.203 ; Plantar wart B07.0 ; Tinea unguium B35.1 ; Pain in right toe(s) M79.674 ; Pain in left toe(s) M79.675 and Right foot pain M79.[address] [address] 04/27/2024 Jimmy Brian Atherosclerosis of cheesh-na artery of both lower extremities, with unspecified presence of clinical manifestation I70.203 ; Plantar wart B07.0 ; Tinea unguium B35.1 ; Pain in right toe(s) M79.674 ; Pain in left toe(s) M79.675 and Right foot pain M79.[address] [address] 06/18/2024 Jimmy Brian Pain in left foot M79.672 ; Pain in left ankle and joints of left foot M25.572 ; Bursitis of left foot M77.52 ; 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 and Ischemic ulcer of left foot with fat layer exposed L97.[address] [address] 07/06/2024 Jimmy Torres Ischemic ulcer of le ft foot, limited to breakdown of skin L97.[address] [address] 07/27/2024 Jimmy Brian Atherosclerosis of cheesh-na artery of both lower extremities, with unspecified presence of clinical manifestation I70.203 ; Plantar wart B07.0 ; Tinea unguium B35.1 ; Pain in right toe(s) M79.674 ; Pain in left toe(s) M79.675 ; Right foot pain M79.671 and Ischemic ulcer of left foot with fat layer exposed L97.[address] [facility] [address] [facility] [address] [facility] [address] [address] 07/27/2024 [facility] [address] 07/27/2024 [facility] Date Diagnosis (ICD Code) Assessment Notes Treatment Notes Treatment Clinical Notes Section Notes 10/21/2023 Plantar wart (ICD-10 - B07.0) 10/21/2023 Atherosclerosis of cheesh-na artery of both lower extremities, with unspecified presence of clinical manifestation (ICD-10 - I70.203) 01/23/2024 Plantar wart (ICD-10 - B07.0) 01/23/2024 Atherosclerosis of cheesh-na artery of both lower extremities, with unspecified presence of clinical manifestation (ICD-10 - I70.203) 04/27/2024 Plantar wart (ICD-10 - B07.0) 04/27/2024 Atherosclerosis of cheesh-na artery of both lower extremities, with unspecified presence of clinical manifestation (ICD-10 - I70.203) 06/18/2024 Pain in left ankle and joints of left foot (ICD-10 - M25.572) 06/18/2024 Pain in left foot (ICD-10 - M79.672) 07/06/2024 Ischemic ulcer of left foot, limited to breakdown of skin (ICD-10 - L97.521) Response to treatment Improvement Patient Educated with: WOUND CARE INSTRUCTIONS. pdf (WOUND CARE INSTRUCTIONS. pdf) 07/27/2024 Plantar wart (ICD-10 - B07.0) 07/27/2024 Atherosclerosis of cheesh-na artery of both lower extremities, with unspecified presence of clinical manifestation (ICD-10 - I70.203) 07/27/2024 Tinea unguium (ICD-10 - B35.1) 06/18/2024 Bursitis of left foot (ICD-10 - M77.52) 04/27/2024 Tinea unguium (ICD-10 - B35.1) 01/23/2024 Tinea unguium (ICD-10 - B35.1) 10/21/2023 Tinea unguium (ICD-10 - B35.1) 10/21/2023 Pain in right toe(s) (ICD-10 - M79.674) 01/23/2024 Pain in right toe(s) (ICD-10 - M79.674) 04/27/2024 Pain in right toe(s) (ICD-10 - M79.674) 06/18/2024 Tailor's bunion of left foot (ICD-10 - M21.622) 07/27/2024 Pain in right toe(s) (ICD-10 - M79.674) 07/27/2024 Pain in left toe(s) (ICD-10 - M79.675) 06/18/2024 Ischemic ulcer of left foot with fat layer exposed (ICD-10 - L97.522) Response to treatment,Nonap plicable Patient Educated with: WOUND CARE INSTRUCTIONS. pdf (WOUND CARE INSTRUCTIONS. pdf) 04/27/2024 Pain in left toe(s) (ICD-10 - M79.675) 10/21/2023 Pain in left toe(s) (ICD-10 - M79.675) 01/23/2024 Pain in left toe(s) (ICD-10 - M79.675) 01/23/2024 Right foot pain (ICD-10 - M79.671) 10/21/2023 Right foot pain (ICD-10 - M79.671) 04/27/2024 Right foot pain (ICD-10 - M79.671) 07/27/2024 Right foot pain (ICD-10 - M79.671) 07/27/2024 Ischemic ulcer of left foot with fat layer exposed (ICD-10 - L97.522) Response to treatment Worse Patient Educated with: WOUND CARE INSTRUCTIONS. pdf (WOUND CARE INSTRUCTIONS. pdf) Plan Of Treatment Pending Test Test Name Order Date X ray : Foot, left 3V 06/18/2024 47656-YRVWJFG NAIL, 6 OR MORE 07/27/2024 74754-YGFNDHU NAIL, 6 OR MORE 01/23/2024 93735-NCGJJEH NAIL, 6 OR MORE 04/27/2024 99092-NFNBHMA NAIL, 6 OR MORE 01/08/2019 52729-NMKHMTY NAIL, 6 OR MORE 03/19/2019 37713-SFSSYPB NAIL, 6 OR MORE 06/18/2019 91196-SYOPUSI NAIL, 6 OR MORE 08/27/2019 24466-UCVFMXN NAIL, 6 OR MORE 11/12/2019 51066-TNPBLPL NAIL, 6 OR MORE 01/21/2020 32601-IYUHTBI NAIL, 6 OR MORE 03/31/2020 82282-QQHKKAP NAIL, 6 OR MORE 06/30/2020 18700-VGJTUXZ NAIL, 6 OR MORE 09/12/2020 99909-CSVVUXK NAIL, 6 OR MORE 12/01/2020 14521-WQOGWSR NAIL, 6 OR MORE 02/09/2021 52509-LXENCSR NAIL, 6 OR MORE 05/15/2021 61966-PVKCPVR NAIL, 6 OR MORE 11/20/2021 22243-PABQJFH NAIL, 6 OR MORE 05/02/2022 56256-FXXUGHP NAIL, 6 OR MORE 10/21/2023 77730-Sxfo Destruction, 1-14 10/21/2023 01224-Snsb Destruction, 1-14 05/02/2022 25697-Gaml Destruction, 1-14 11/20/2021 02392-Gnuw Destruction, 1-14 05/15/2021 87440-Cuys Destruction, 1-14 02/09/2021 51254-Yyyg Destruction, 1-14 12/01/2020 43209-Xxga Destruction, 1-14 09/12/2020 52114-Ybsy Destruction, 1-14 04/27/2024 82941-Mqsh Destruction, 1-14 01/23/2024 92860-Hhmg Destruction, -14 07/27/2024 10429- Debride <25 sq cm 07/06/2024 96690-KQXCXNQ SKIN/TISSUE 07/27/2024 35485-TSTHYQX SKIN/TISSUE 06/18/2024 11200-DGXC SKIN LESIONS, OVER 4 07/27/20 82223-GLTQ SKIN LESIONS, OVER 4 01/23/20 24 91577-KNLN SKIN LESIONS, OVER 4 04/27/20 41012-AYYP SKIN LESIONS, OVER 4 10/21/19 35442-SPNM SKIN LESIONS, 2 TO 4 05/02/20 05603-LIFN SKIN LESIONS, 2 TO 4 05/15/20 55400-OACA SKIN LESIONS, 2 TO 4 11/21/19 66501-EFAH SKIN LESIONS, 2 TO 4 11/12/19 63173-WWAJ SKIN LESIONS, 2 TO 4 09/12/19 57096-UDER SKIN LESIONS, 2 TO 4 12/02/19 14888-HUNE SKIN LESIONS, 2 TO 4 02/10/20 48158-WNOH SKIN LESIONS, 2 TO 4 06/30/20 48595-OEGP SKIN LESIONS, 2 TO 4 03/31/20 73421-WLZD SKIN LESIONS, 2 TO 4 01/21/20 71535-KQQF SKIN LESIONS, 2 TO 4 08/27/19 27956-SXLP SKIN LESIONS, 2 TO 4 06/18/20 01166-NMRQ SKIN LESIONS, 2 TO 4 03/19/20 25313-OIFR SKIN LESIONS, 2 TO 4 01/09/20 19 45090-Encf. Subungual Hematoma 0 Next Appt Details Provider Name:Jimmy Fleming Brian , 10/22/2024 09:00:00 AM, [address] [place], [address], Insurance Providers Payer Name Payer Address Payer Phone Subscriber Number Group Number Insured Name Patient Relationship to Insured Coverage Start Date Coverage End Date Medicare National [employer] [address] [facility] [place] [address] [id number] Mark Jay Self - patient is the insured [facility] [address] [place] [address] [id number] Mark Jay Self - patient is the insured 7 Medical (General) History Medical History History ICD Code CAD (Cholesterol) Psoriasis Measles Mumps Chicken pox Joint implants/screws - knee and hip Surgical History Surgery Date(Month/Year) hip replacement 04/1994 knee replacement 04/1996
== END 2024-09-16 10:31 | disposition home or self-care (01) ==
LOC: HO.XRAY 10:30
PROVIDERS: PCP Internal Medicine; Visit Provider Internal Medicine
DX: M79.672 Pain in left foot (principal)
CPT/HCPCS: 73630

== ENCOUNTER → 2024-09-16 10:39 | Outpatient (BNV) | payer MEDICARE, BC, SELFPAY | PROVIDERS: PCP Internal Medicine; Visit Provider Radiology Diagnostic Radiology | DX: M79.89 Other specified soft tissue disorders (principal) | CPT/HCPCS: 73630 ==

== ENCOUNTER 2024-12-16 08:52 | Outpatient (AMB) | payer MEDICARE, BC, SELFPAY ==
--- NOTE | 2024-12-16 08:45 | MHC.PC.OV ---
Vital Signs 12/16/24 09:09 Height 5 ft 7.5 in Weight 168 lb BMI 25.9 BP 122/68 Respiration 14 Pulse 86 Pulse Source Pulse Oximeter Temp 97.6 F Temp Source Temporal Artery Scan Pulse Oximetry (%) 97 Oxygen Delivery Method Room Air Intake Visit Reasons: Routine - see comments Funeral Service Apprentice Required: No Accompanied by: Self / Same As Patient Allergies Penicillins Allergy (Unknown, Verified 12/16/24 09:13) Unknown Tobacco use date assessed: 12/16/24 Fall risk assessment: No Falls in past year Last assessed Fall Risk: 12/16/24 Dental Screening Dental Screen Date: 12/16/24 Did you have a dental visit in the last 12 months?: No Did you have a dental problem in the last 6 months where you did not have access to dental care?: No Was dental information given to patient?: Patient has dentist (pt has dentures) HPI HPI Comments History of Present Illness Details 73 year old male with a past medical history of s/p porcine AVR, HLD, insomnia, elevated monocytes, presenting for follow up. CV: History of heart valve replacement in 2007, hyperlipidemia. History of PVD. Getting procedure this month-[address] MSK: History of left total hip replacement. Doing okay Follows with [facility] for psoriasis which is stable. Gets allergy shots with Dr Benny Grover for colon cancer screening-referral placed ROS CONSTITUTIONAL: Denies weight loss, fever and chills. HEENT: Denies changes in vision and hearing. RESPIRATORY: Denies SOB and cough. CV: Denies palpitations and CP GI: Denies abdominal pain, nausea, vomiting and diarrhea. : Denies dysuria and urinary frequency. MSK: Denies new myalgia and joint pain. SKIN: Denies rash and pruritus. NEUROLOGICAL: Denies headache PSYCHIATRIC: Denies recent changes in mood. PHYSICAL EXAM: GENERAL: Alert and oriented x 3. NAD EYES: EOMI. Anicteric. HENT: Moist mucous membranes. No scleral icterus. No cervical lymphadenopathy. LUNGS: Clear to auscultation bilaterally. CARDIOVASCULAR: Regular rate and rhythm. No murmur. No JVD. ABDOMEN: Soft, non-tender +bs EXTREMITIES: No edema. Non-tender. SKIN: No rashes or lesions. Warm. NEUROLOGIC: No focal neurological deficits. CN II-XII grossly intact PSYCHIATRIC: Cooperative. Appropriate mood and affect [facility] Family History Mother No problems noted. Father No problems noted. Social History Housing: Apartment Alcohol intake: current Alcohol intake frequency: does not drink Patient Tobacco Use Status: Former Tobacco user service: No Current occupational status: retired Cognitive needs: No Hearing needs: No Vision needs: Yes (reading glasses) Questionnaire PHQ-9 Over the last 2 weeks, how often have you been bothered by any of the following problems? 1. Little interest or pleasure in doing things: not at all 2. Feeling down, depressed, or hopeless: not at all 3. Trouble falling or staying asleep, or sleeping too much: not at all 4. Feeling tired or having little energy: not at all 5. Poor appetite or overeating: not at all 6. Feeling bad about yourself - or that you are a failure or have let yourself or your family down: not at all 7. Trouble concentrating on things, such as reading the newspaper or watching television: not at all 8. Moving or speaking so slowly that other people could have noticed. Or the opposite - being so fidgety or restless that you have been moving around a lot more than usual: not at all 9. Thoughts that you would be better off or of hurting yourself in some way: not at all Total score: 0 Source: Developed by Drs. Conor Harry, Darcie Ashton, Isai Colon and colleagues, with an educational demetrio from [employer]. Thrive Questionnaire Date Thrive assessed: 12/16/24 I am a: Patient What is your living situation today?: I have a steady place to live Within the past 12 months, did the food you bought not last and you didn't have the money to get more?: Never true Within the past 12 months, did you worry whether your food would run out before you got money to buy more?: Never true Do you have trouble paying for medicines?: No Do you have trouble getting transportation to medical appointments?: No Do you have trouble paying your heating and electricity bill?: No Do you have trouble taking care of your child, family member or friend?: No Do you have trouble with day-to-day activities such as bathing, preparing meals, shopping, managing finances, etc.?: No Are you currently unemployed and looking for a job?: No Are you interested in more education?: No Please select the resources that you would like help with: None THRIVE Score: 0 AUDIT C Alcohol Use Questionnaire (AUDIT-C) 1. How often do you have a drink containing alcohol?: Never 3. How often do you have six or more drinks on one occasion?: Never Total Score: 0 VERNELL-7 AMB Questionnaire VERNELL-7 Date VERNELL - 7 assessed: 12/16/24 Feeling nervous, anxious, or on edge: 0 = Not at all Not being able to stop or control worryin = Not at all Worrying too much about different things: 0 = Not at all Trouble relaxin = Not at all Being so restless that it is hard to sit still: 0 = Not at all Becoming easily annoyed or irritable: 0 = Not at all Feeling afraid as if something awful might happen: 0 = Not at all Total VERNELL-7 score (0-4 normal; 5-9 mild; 10-14 moderate; 15-21 severe): 0 Source: Developed by Drs. Conor Harry, Darcie Ashton, Isai Colon and colleagues, with an educational demetrio from [employer]. Coding Level of Care Code Est Pt Level 4 (36860) Complex EM visit Add On G2211 Diagnoses Insomnia, unspecified type G47.00 Insomnia type: unspecified Hyperlipidemia, unspecified hyperlipidemia type E78.5 Hyperlipidemia type: unspecified History of colon polyps Z86.0100 Assessment & Plan Assessment & Plan (1) Insomnia: Code(s): G47.00 - Insomnia, unspecified Category: Medical Qualifiers: Insomnia type: unspecified Qualified Code(s): G47.00 - Insomnia, unspecified (2) Hyperlipidemia: Code(s): E78.5 - Hyperlipidemia, unspecified Category: Medical Qualifiers: Hyperlipidemia type: unspecified Qualified Code(s): E78.5 - Hyperlipidemia, unspecified (3) History of colon polyps: Code(s): Z86.0100 - Personal history of colon polyps, unspecified Category: Medical Plan 73 year old to establish care. Past medical surgical social reviewed hld-on statin, due for labs which are ordered Continue allergy and dermatology follow up Orders: Orders Pathologist Review - CBC Today D72.821 - Monocytosis (symptomatic), G47.00 - Insomnia, unspecified, Z12.5 - Encounter for screening for malignant neoplasm of prostate, Z13.220 - Encounter for screening for lipoid disorders, Z13.228 - Encounter for screening for other metabolic disorders Comprehensive Met. Panel Today D72.821 - Monocytosis (symptomatic), G47.00 - Insomnia, unspecified, Z12.5 - Encounter for screening for malignant neoplasm of prostate, Z13.220 - Encounter for screening for lipoid disorders, Z13.228 - Encounter for screening for other metabolic disorders Lipid Panel Today D72.821 - Monocytosis (symptomatic), G47.00 - Insomnia, unspecified, Z12.5 - Encounter for screening for malignant neoplasm of prostate, Z13.220 - Encounter for screening for lipoid disorders, Z13.228 - Encounter for screening for other metabolic disorders Complete Blood Count Auto Diff Today D72.821 - Monocytosis (symptomatic), G47.00 - Insomnia, unspecified, Z12.5 - Encounter for screening for malignant neoplasm of prostate, Z13.220 - Encounter for screening for lipoid disorders, Z13.228 - Encounter for screening for other metabolic disorders Prostate Specific Antigen Today D72.821 - Monocytosis (symptomatic), G47.00 - Insomnia, unspecified, Z12.5 - Encounter for screening for malignant neoplasm of prostate, Z13.220 - Encounter for screening for lipoid disorders, Z13.228 - Encounter for screening for other metabolic disorders Referrals Gastroenterology Referral Z12.11 - Encounter for screening for malignant neoplasm of colon, Z86.0100 - Personal history of colon polyps, unspecified Medications: New atorvastatin hold for refills 10 mg PO DAILY 90 tabs 3RF Changed From zolpidem 10 mg PO BEDTIME 30 tabs 1RF G47.00 - Insomnia, unspecified To zolpidem 10 mg PO BEDTIME 60 days 60 tabs 1RF G47.00 - Insomnia, unspecified
[2024-12-16 09:09] VITALS: BP 122/68; PULSE 86; RESP 14; TEMP 36.4; O2SAT 97; BMI 25.9
--- OUTSIDE RECORDS SUMMARY | 2024-12-16 09:17 | XMS_ITS ---
Author Organization [facility] Address [address] [facility] [place] [address] Care Team Providers Care Combination Window Installer Name Role Phone Rad Antonio MD Primary Care Provider Unavaila Jimmy Rojas Unavailable [phone] Allergies Allergen (clinical drug ingredient) Drug/Non Drug Allergy documented on EMR Reaction Allergy Type Onset Date Status amoxicillin Amoxicillin Unknown Drug Allergy Act erica Cortisone Unknown Drug Allergy Active Substance with penicillin structure and antibacterial mechanism of action (substance) Penicillins Unknown Drug Allergy Active REASON FOR VISIT At Risk Footcare, Painful Nail(s) aggravated by shoes and causing difficulty standing/walking., Open sore Medications Medication SIG (Take, Route, Frequency, Duration) Notes Start Date End Date Status Ammonium Lactate 12 % 1 application to a ffected area Externally to feet Twice a day for 30 days Not-Taki ng Zolpidem Tartrate No t-Taking Lipitor 10 MG 1 tablet Orally Once a day for 30 day(s) Not-Taking Social History Tobacco Use: Social History Observation Description Date Details (start date - stop date) Never Smoker NA - NA Tobacco use other than smoking: Question Answer Notes Are you an other tobacco user? No Tobacco Control (Standard) Question Answer Notes Tobacco use: Nonsmoker Vital Signs Height 5ft7.5in in 10/22/2024 Weight 163 lbs 10/22/2024 BMI 25.15 kg/m2 10/22/2024 Blood pressure systolic 120 mm Hg 10/23/19 25 Blood pressure diastolic 63 mm Hg 025 Procedures Procedure Date Ordered Date Performed Result Body Sit e 73516-ICUNQWH NAIL, 6 OR MORE 10/22/2024 N/A 83008-GGMSYIT SKIN/TISSUE 10/22/2024 N/A 46718-ASDX SKIN LESIONS, OVER 4 10/22/2024 N/A Encounters Encounter Location Date Provider Diagnosis [facility] [place] [address] [place] [address] 10/22/2024 Jimmy Torres Atherosclerosis of sun'aq artery of both lower extremities, with unspecified presence of clinical manifestation I70.203 ; Tinea unguium B35.1 ; Pain in right toe(s) M79.674 ; Pain in left toe(s) M79.675 and Ischemic ulcer of left foot with fat layer exposed L97.522 Assessments Encounter Date Diagnosis (ICD Code) Assessment Notes Treatment Notes Treatment Clinical Notes Section Notes 10/22/2024 Atherosclerosis of sun'aq artery of both lower extremities, with unspecified presence of clinical manifestation (ICD-10 - I70.203) 10/22/2024 Tinea unguium (ICD-10 - B35.1) 10/22/2024 Pain in right toe(s) (ICD-10 - M79.674) 10/22/2024 Pain in left toe(s) (ICD-10 - M79.675) 10/22/2024 Ischemic ulcer of left foot with fat layer exposed (ICD-10 - L97.522) Response to treatment Improving Unresolved Patient Educated with: WOUND CARE INSTRUCTIONS. pdf (WOUND CARE INSTRUCTIONS. pdf) Plan Of Treatment Treatment Notes Assessment Notes Ischemic ulcer of left foot with fat layer exposed Patient Educated with: WOUND CARE INSTRUCTIONS.pdf (WOUND CARE INSTRUCTIONS.pdf) Pending Test Test Name Order Date 95218-BXVSTHM NAIL, 6 OR MORE 10/22/2024 21187-ABGYNUU SKIN/TISSUE 10/22/2024 04176-MDKW SKIN LESIONS, OVER 4 10/23/19 25 Next Appt Details Follow Up: 2 Months, Reason: Provider Name:Jimmy Torres , 01/21/2025 10:45:00 AM, [address] [place] [address], [id number], Procedure Notes * Category Sub-Category Detail Notes Debride Nail 6-10 Nail debridement Due to the cl inical pathology outlined in the exam findings, performance of this nail treatment is medically necessary as its management by an unskilled/untrained nonprofessional would put this patients foot and overall health at risk. Therefore, debridement to affected nail(s), as described in exam ( TA,T1,T2,T4,T5,T6,T7,T9 ), was performed exclusively by the physician of record to reduce/remove overall nail length, girth, thickness, subungual debris, and necrotic tissue, by manual and/or electrical means through the use of a nail nipper and/or dremel-type precision grinder external, to a more viable healthy nail plate [...] to maintain effectiveness in symptomatic relief - 73152 Debride skin and subQ Open wound ISCHEMIC: [...] controlled through direct pressure. Post debridement measurements: 15mm x 8mm x 3mm. Character of the wound post debriement is stable (23780) Keratoma Treatment Parring or Cutting o f [...] risk. Therefore, the benign hyperkeratotic lesions, ( 7 ) in total, locations as stated and described in the exam ( Medial plantar, IPJ, TA, Medial plantar, IPJ, T5, SUB MTH (s), 1, Right , SUB MTH (s) , 3 , Left , SUB MTH (s) , 4 , Left , Plantar, Heel(s) , B/L ), were pared, and/or cut utilizing a sterile 15 blade, tissue nippers, and/or power dremel instrumentation by the physician of record - 92619, Q8 Progress Notes * Mark JAYDOB: [birth year] (73 yo M)Acc No.[id number]:10/22/2024 Progress Note Patient:?Mark JAY Provider:?Jimmy Torres DPM :1950???Age:73 Y???Sex:Male Roberth e:10/22/2024 Address:[address] [place] [address] [address] [facility], [facility] Pcp:Rad Antonio MD Subjective: * Chief Complaints: * ???At Risk FootcarePainful N ail(s) aggravated by shoes and causing difficulty standing/walking.Open sore * HPI: ???At Risk footcare:?Pt States Last PCP Visit:?Date?09/21/2024 ???Skin problems:?Treatments:?Local care consisting of daily distilled water wound cleanse, topicalMedihoney or Silvadine?antibiotic as recommended, application of sterile dressing, offloading/pressure reduction via rest, shoe modification, insert modification, accommodative padding, assisted ambulation via cane, and surgical debridement.?States was discharged by wound care in early Sep. States walks in house in stocking feet without pressure accommodation.? * ROS:?General/Constitutional:?Nausea?denies.?Vomiting?denies.?Hunger Thirst?denies.?Loss appetite?denies.?Chills?denies.?Fatigue?denies.?Fever?denies.?Night Sweats?denies.?Unexplained weight loss?denies.?Unexplained weight gain?denies.?HEENTM:?Dentures?admits.?Dizziness?denies.?Glasses/contacts?denies.?Retinopathy?de nies.?Blurred/double vision?denies.?TMJ?denies.?Discharge/drainage?denies.?Implants?denies.?Sore throat?denies.?Dental implants?denies.?Hard of hearing ?denies.?Difficulty chewing/swallowing/speaking?denies.?Nose bleeds?denies.?Sore mouth?denies.?Respiratory:?On Oxygen?denies.?Pneumonia/pleurisy?denies.?Bronchitis?denies.?Emphysema?denies.?C oughing?denies.?Cough blood?denies.?Shortness of breath?denies.?Wheezing?denies.?Cardiovascular:?Pacemaker?denies.?MVP?denies.?WPW?denies.?CHF?denies.?Heart attack?denies.?Septal defect?denies.?Rapid beat?denies.?Chest pain ?denies.?Atrial Fib.?denies.?Murmur/Palpitations?denies.?Gastrointestinal:?Hemorrhoids?denies.?Stomach/Abdominal pain?denies.?Dark blood stool?denies.?Irritable bowel ?denies.?Constipation?denies.?Diarrhea?denies.?Hematology:?Swelling?denies.?Clots?denies.?Varicose Veins?admits.?Bruising?denies.?Bleeding problem?denies.?Genitourinary:?Blood urine?denies.?Frequent/Painfu/urination/bladder control?denies.?Kidney stones?denies.?Infection (UTI)?denies.?Nephropathy?denies.?sex trans dis (STD)?denies.?Prostate?denies.?Musculoskeletal:?Hammertoes?admits.?Bunions?denies.?Back Pain?denies.?Muscle Cramps/ Resting?denies.?Muscle cramps / walking?denies.?Generalized aches and pains?denies.?Weakness?denies.?Integ.:?Thurman?denies.?Scars?denies.?Corns/calluses?admits.?Ingrown nails?admits.?Painful nails?admits.?Open Sores?admits.?Rashes?denies.?Neurologic:?Difficulty sleeping?admits.?Brain disorder?denies.?Numbness?denies.?Balance trouble?denies.?Confusion?denies.?Fainting/blackouts?denies.?Tingling?denies.?Tr emors?denies.? * Medical History:? * Surgical History:?hip replac ement 04/1994knee replacement 04/1996 * Hospitalization/Major Diagno stic Procedure:?Denies Past Hospitalization * Family History:?Mother: dece ased, cancer.?Father: , stroke.? * Social History:?Tobacco Use:?Tobacco use other than smoking?Are you an other tobacco user??No ?Tobacco Control (Standard)?Tobacco use:?Nonsmoker ???Miscellaneous:?Caffeine: yes, Soda. ?Children: no, none. ?Exercise: yes, walking. ?Marital status: single. 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 * Medications:?Not-Taking/PRNL ipitor 10 MG Tablet 1 tablet Orally Once a day Zolpidem Tartrate Ammonium Lactate 12 % Cream 1 application to affected area Externally to feet Twice a day Medication List reviewed and reconciled with the patientNot-Taking/PRN Lipitor 10 MG Tablet 1 tablet Orally Once a day Not- Taking/PRN Zolpidem Tartrate Not-Taking/PRN Ammonium Lactate 12 % Cream 1 application to affected area Externally to feet Twice a day Medication List reviewed and reconciled with the patient * Allergies:?AmoxicillinCortis onePenicillinsyes[Allergies Verified] Objective: * Vitals:?Ht: 5ft7.5in, Wt:163 , BMI:25.15, Shoe size: 8, BP:120/63mm Hg, Ht-cm: 171.45 cm, Wt-k.94 kg. * Examination: ???Vascular: ?DP PULSES (B):?0/4, RIGHT, 1/4, LEFT.?PT PULSES (B):? 0/4, B/L.?CAPILLARY FILL TIME:? delayed, all digits, B/L.?TROPHIC CONDITION-TEXTURE/ELASTICITY/TURGOR/HAIR GROWTH (B):? decreased,?with sparse to absent hair growth, B/L.?TEMPERTURE GRADIENT (C):? decreased, cool to cool, proximal to distal, B/L.?PIGMENTATION:? mottled, B/L.?EDEMA (C):? 1/4, non-pitting, without aching pain, B/L, Ankle(s).?CLAUDICATION (C):?denies, B/L.?REST PAIN:?denies, B/L.?VARICOSITIES:? present, moderate, nonpainful, B/L.?Nails: ?NAILS are:?Elongated, overgrown, dystrophic, lytic, greater than 3mm thick, discolored and friable with crumbly malodorous subungual debris, with pain on palpation,TA,T1,T2,T4,T5,T6,T7,T9, all other nails not described with characteristics as possessing mycosis are elongated, overgrown, and dystrophic.?Dermatologic: ?SKIN FINDINGS:?Skin exam reveals Keratotic lesion(s) located at, Medial plantar, IPJ, TA, Medial plantar, IPJ, T5, SUB MTH (s), 1, Right , SUB MTH (s) , 3 , Left , SUB MTH (s) , 4 , Left , Plantar, Heel(s) , B/L.?VERRUCA:?NOW NO FURTHER SIGN of mosaic papule(s) with skin lines now evident and visible, plantar Forefoot, RIGHT.?ULCER:? LOCATION,?Plantar, 5 MTH, LEFT, NOW, SIZE, 12mm X 7mm X 3mm, BASE, fibro-granular, RIM, hyperkeratotic, UNDERMINING, mild, TRACKING, Sub Q with Fat layer exposed, DRAINAGE, serosanguineous, moderate, NECROTIC TISSUE, loosely-adherent, yellow slough, MALODOR, absent, CALOR, absent, ERYTHEMA, absent.? Assessment: * Assessment: 1.?Tinea unguium - B35.1???2 .?Atherosclerosis of sun'aq artery of both lower extremities, with unspecified presence of clinical manifestation - I70.203 (Primary)???3.?Pain in right toe(s) - M79.674???4.?Pain in left toe(s) - M79.675 ??5.?Ischemic ulcer of left foot with fat layer exposed - L97.522???Notes :Response to treatment Improving Unresolved??? Plan: * Treatment: 2.?Tinea unguium?Procedure: 13000-HNXYVOF NAIL, 6 OR MORE 3.?Ischemic ulcer of left fo ot with fat layer exposed?Procedure: 53663-WSYATJR SKIN/TISSUE Notes: Patient Educated with: WOUND CARE INSTRUCTIONS.pdf (WOUND CARE INSTRUCTIONS.pdf)?? * Procedures:?Debride Nail 6-10:?Nail debridement?Due to the clinical pathology outlined in the exam findings, performance of this nail treatment is medically necessary as its management by an unskilled/untrained nonprofessional would put this patients foot and overall health at risk. Therefore, debridement to affected nail(s), as described in exam (?TA,T1,T2,T4,T5,T6,T7,T9?), was performed exclusively by the physician of record to reduce/remove overall nail length, girth, thickness, subungual debris, and necrotic tissue, by manual and/or electrical means through the use of a nail nipper and/or dremel-type precision grinder external, to a more viable healthy nail plate [...] to maintain effectiveness in symptomatic relief - 61269.?Debride skin and subQ:?Open wound?ISCHEMIC: Physician of record [...] controlled through direct pressure. Post debridement measurements: 15mm x 8mm x 3mm. Character of the wound post debriement is stable (63219).?Keratoma Treatment:?Parring or Cutting of Benign Hyperkeratotic Lesion(s)?(-57) More than 4 Lesions - Due to the at risk nature of the patients medical condition as documented in the exam findings, performance of this keratoderma treatment is medically necessary as its management by an unskilled/untrained nonprofessional would put this patients foot and overall health at risk. Therefore, the benign hyperkeratotic lesions, ( 7 ) in total, locations as stated and described in the exam (?Medial plantar,?IPJ,?TA,?Medial plantar,?IPJ,?T5,?SUB MTH (s),?1,?Right?,?SUB MTH (s)?,?3?,?Left?,?SUB MTH (s)?,?4?,?Left?,?Plantar,?Heel(s)?,?B/L?), were pared, and/or cut utilizing a sterile 15 blade, tissue nippers, and/or power dremel instrumentation by the physician of record - 49380, Q8.? * Procedure Codes:?60569 DEBRI DE SKIN/TISSUE, Modifiers: XS 02872 DEBRIDE NAIL, 6 OR MORE, Modifiers: XS 16235 TRIM SKIN LESIONS, OVER 4, Modifiers: XS , Q8 * Preventive Medicine:? ??Counseling:?Ulcer:?A detailed plan of care was reviewed with [...] knee scooter - pt prefers cane, shoe inserts modified with pressure-accommodative padding, sharp debridement, and take/apply medication as directed. THE GOALS of wound debridement to remove devitilized tissue, decrease risk for infection, promote wound healing and prevent further complication were discussed/reviewed. Debridement frequency as indicated.? * Follow Up:?2 Months * Images: * Sign off status: Completed true * Provider:?Jimmy Torres DPM Date:?2024 Generated for Sal weinstein/Bárbara/Shilo on:?12/16/2024 09:17 AM EDT History and Physical Notes * HPI (History of Present Illness) Category Sub-Category Detail Notes Category Not es Skin problems Treatments: Local care consi sting of daily distilled water wound cleanse, topical Medihoney or Silvadine antibiotic as recommended, application of sterile dressing, offloading/pressure reduction via rest, shoe modification, insert modification, accommodative padding, assisted ambulation via cane, and surgical debridement. was discharged by wound care in early Sep. walks in house in stocking feet without pressure accommodation At Risk footcare Pt [facility] Last PCP Visit: Date: 09/21/2024 Examination Category Sub-Category Detail Notes Category Not es Dermatologic SKIN FINDINGS: Skin exam reveal s Keratotic lesion(s) located at, Medial plantar, IPJ, TA, Medial plantar, IPJ, T5, SUB MTH (s), 1, Right , SUB MTH (s) , 3 , Left , SUB MTH (s) , 4 , Left , Plantar, Heel(s) , B/L ULCER: LOCATION, Plantar, 5 MTH, LEFT, NOW, SIZE, 12mm X 7mm X 3mm, BASE, fibro- granular, RIM, hyperkeratotic, UNDERMINING, mild, TRACKING, Sub Q with Fat layer exposed, DRAINAGE, serosanguineous, moderate, NECROTIC TISSUE, loosely-adherent, yellow slough, MALODOR, absent, CALOR, absent, ERYTHEMA, absent VERRUCA: NOW NO FURTHER SIGN of mosaic papule(s) with skin lines now evident and visible, plantar Forefoot, RIGHT Vascular DP PULSES (B): [...] crumbly malodorous subungual debris, with pain on palpation,TA,T1,T2,T4,T5,T6,T7,T9, all other nails not described with characteristics as possessing mycosis are elongated, overgrown, and dystrophic
--- OUTSIDE RECORDS SUMMARY | 2024-12-16 09:17 | XMS_ITS ---
Author Organization [facility] Address [address] [place] [address] Care Team Providers Care Life Coach Name Role Phone Rad Antonio MD Primary Care Provider UnavailJimmy Melo [phone] REASON FOR VISIT [facility] Encounters Encounter Location Date Provider Diagnosis [address] [address] 07/27/2024 Jimmy Torres Plan Of Treatment Next Appt Details Provider Name:Jimmy Torres , 01/21/2025 10:45:00 AM, [address] [place], [address], Progress Notes * Mark JAYDOB: [birth year] (73 yo M)Acc No.[id number]:07/27/2024 Patient:?Mark JAY :1950???Age:73 Y???Sex:Male Address:[address] [address], [place], [address] * true * Date:? Generated for Printi js/Bárbara/eTransmitting on:?12/16/2024 09:17 AM EDT
--- OUTSIDE RECORDS SUMMARY | 2024-12-16 09:18 | XMS_ITS | Patient Health Record ---
Author Organization [facility] Address [address] [facility] [place] [address] Care Team Providers Care Production Leader Name Role Phone Rad Antonio MD Primary Care Provider Unavaila Jimmy Rojas Unavailable [phone] Allergies Allergen (clinical drug ingredient) Drug/Non Drug Allergy documented on EMR Reaction Allergy Type Onset Date Status amoxicillin Amoxicillin Unknown Drug Allergy Act erica Cortisone Unknown Drug Allergy Active Substance with penicillin structure and antibacterial mechanism of action (substance) Penicillins Unknown Drug Allergy Active Reason For Referral No Information Medications Medication SIG (Take, Route, Frequency, Duration) Notes Start Date End Date Status Ammonium Lactate 12 % 1 application to a ffected area Externally to feet Twice a day for 30 days Not-Taki ng Zolpidem Tartrate No t-Taking Lipitor 10 MG 1 tablet Orally Once a day for 30 day(s) Not-Taking Immunizations Vaccine Route Administration Date Status Comme nts COVID-19 Matthew & Matthew/Mary Unknown 08/02/2021 Administered 1st 12/01/2020 Social History Tobacco Use: Social History Observation Description Date Details (start date - stop date) Never Smoker NA - NA Alcohol Screen Question Answer Notes Did you have a drink containing alcohol in the p ast year? No Points 0 Interpretation Negative Tobacco use other than smoking: Question Answer Notes Are you an other tobacco user? No Tobacco Control (Standard) Question Answer Notes Tobacco use: Nonsmoker Problems Problem Type SNOMED Code ICD Code Onset Dates Problem Status W/U Status Risk Notes Problem [id number] Atherosclerosis of ak chin artery of both lower extremities, with unspecified presence of clinical manifestation (I70.203) Active confirmed Problem Ischemic ulcer o f left foot, limited to breakdown of skin (L97.521) Active confirmed Response to treatment Improvement Problem Ischemic ulcer o f left foot with fat layer exposed (L97.522) Active confirmed Response to treatment Improving Unresolved Vital Signs Blood pressure diastolic 63 mm Hg 10/22/2024 Height 5ft7.5in in 10/22/2024 Blood pressure systolic 120 mm Hg 10/22/2024 Weight 163 lbs 10/22/2024 BMI 25.15 kg/m2 10/22/2024 Procedures Procedure Date Ordered Date Performed Result Body Sit e 02641-DTRUJGS NAIL, 6 OR MORE 01/23/2024 N/A 08926-Xjyl Destruction, 1-14 01/23/2024 N/A 81327-BGUA SKIN LESIONS, OVER 4 01/23/2024 N/A 04193-BSEAXYF NAIL, 6 OR MORE 04/27/2024 N/A 23486-Uxyt Destruction, 1-14 04/27/2024 N/A 35157-ECWL SKIN LESIONS, OVER 4 04/27/2024 N/A 05178-SRSIMLR SKIN/TISSUE 06/18/2024 N/A 80542- Debride <25 sq cm 07/06/2024 N/A 31827-AJVRBNI NAIL, 6 OR MORE 07/27/2024 N/A 57318-Zyuh Destruction, 1-14 07/27/2024 N/A 80395-GFBZRUD SKIN/TISSUE 07/27/2024 N/A 09652-WCNE SKIN LESIONS, OVER 4 07/27/2024 N/A 29905-YLIETAF NAIL, 6 OR MORE 10/22/2024 N/A 62861-BHVADGM SKIN/TISSUE 10/22/2024 N/A 93468-ISIO SKIN LESIONS, OVER 4 10/22/2024 N/A Encounters Encounter Location Date Provider Diagnosis [facility] [address] [place] [address] 01/23/2024 Jimmy Torres Atherosclerosis of ak chin artery of both lower extremities, with unspecified presence of clinical manifestation I70.203 ; Plantar wart B07.0 ; Tinea unguium B35.1 ; Pain in right toe(s) M79.674 ; Pain in left toe(s) M79.675 and Right foot pain M79.[address] [address] 04/27/2024 Jimmy Brian Atherosclerosis of ak chin artery of both lower extremities, with unspecified presence of clinical manifestation I70.203 ; Plantar wart B07.0 ; Tinea unguium B35.1 ; Pain in right toe(s) M79.674 ; Pain in left toe(s) M79.675 and Right foot pain M79.[address] [address] 06/18/2024 Jimmy Brian Pain in left foot M79.672 ; Pain in left ankle and joints of left foot M25.572 ; Bursitis of left foot M77.52 ; 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 and Ischemic ulcer of left foot with fat layer exposed L97.[address] [address] 07/06/2024 Jimmy Solerier Ischemic ulcer of le ft foot, limited to breakdown of skin L97.[address] [address] 07/27/2024 Jimmy Brian Atherosclerosis of ak chin artery of both lower extremities, with unspecified presence of clinical manifestation I70.203 ; Plantar wart B07.0 ; Tinea unguium B35.1 ; Pain in right toe(s) M79.674 ; Pain in left toe(s) M79.675 ; Right foot pain M79.671 and Ischemic ulcer of left foot with fat layer exposed L97.[address] [address] 10/22/2024 Jimym Brian Atherosclerosis of ak chin artery of both lower extremities, with unspecified presence of clinical manifestation I70.203 ; Tinea unguium B35.1 ; Pain in right toe(s) M79.674 ; Pain in left toe(s) M79.675 and Ischemic ulcer of left foot with fat layer exposed L97.[address] [address] 06/16/2024 [facility] [address] [place] [address] 06/18/2024 [facility] [address] [address] 07/27/2024 [facility] [address] 07/27/2024 Jimmy Torres [facility] Encounter Date Diagnosis (ICD Code) Assessment Notes Treatment Notes Treatment Clinical Notes Section Notes 01/23/2024 Plantar wart (ICD-10 - B07.0) 01/23/2024 Atherosclerosis of ak chin artery of both lower extremities, with unspecified presence of clinical manifestation (ICD-10 - I70.203) 04/27/2024 Plantar wart (ICD-10 - B07.0) 04/27/2024 Atherosclerosis of ak chin artery of both lower extremities, with unspecified [...] wart (ICD-10 - B07.0) 07/27/2024 Atherosclerosis of ak chin artery of both lower extremities, with unspecified presence of clinical manifestation (ICD-10 - I70.203) 10/22/2024 Tinea unguium (ICD-10 - B35.1) 10/22/2024 Atherosclerosis of ak chin artery of both lower extremities, with unspecified presence of clinical manifestation (ICD-10 - I70.203) 10/22/2024 Pain in right toe(s) (ICD-10 - M79.674) 07/27/2024 Tinea unguium (ICD-10 - B35.1) 06/18/2024 Bursitis of left foot (ICD-10 - M77.52) 04/27/2024 Tinea unguium (ICD-10 - B35.1) 01/23/2024 Tinea unguium (ICD-10 - B35.1) 01/23/2024 Pain in right toe(s) (ICD-10 - [...] INSTRUCTIONS. pdf (WOUND CARE INSTRUCTIONS. pdf) 07/27/2024 Pain in left toe(s) (ICD-10 - M79.675) 06/18/2024 Ischemic ulcer of left foot with fat layer exposed (ICD-10 - L97.522) Response to treatment,Nonap plicable Patient Educated with: WOUND CARE INSTRUCTIONS. pdf (WOUND CARE INSTRUCTIONS. pdf) 04/27/2024 Pain in left toe(s) (ICD-10 - M79.675) 01/23/2024 Pain in left toe(s) (ICD-10 - M79.675) 01/23/2024 Right foot pain (ICD-10 - M79.671) 04/27/2024 [...] X ray : Foot, left 3V 06/18/2024 02296-UGUKCKZ NAIL, 6 OR MORE 07/27/2024 38473-WYYEYNS NAIL, 6 OR MORE 01/23/2024 72406-UCFGFYS NAIL, 6 OR MORE 04/27/2024 57614-QWTYGRV NAIL, 6 OR MORE 10/22/2024 61042-NNPETMS NAIL, 6 OR MORE 01/08/2019 12817-QFJZIHH NAIL, 6 OR MORE 03/19/2019 83458-RSDSRTH NAIL, 6 OR MORE 06/18/2019 36084-UTBZRTH NAIL, 6 OR MORE 08/27/2019 25774-ESMLJEJ NAIL, 6 OR MORE 11/12/2019 18138-IAGFHLF NAIL, 6 OR MORE 01/21/2020 95307-ABUFGZW NAIL, 6 OR MORE 03/31/2020 65661-HUKBLQQ NAIL, 6 OR MORE 06/30/2020 59527-YLCXQLD NAIL, 6 OR MORE 09/12/2020 07645-WLABSIN NAIL, 6 OR MORE 12/01/2020 75898-QDBHOCJ NAIL, 6 OR MORE 02/09/2021 71444-HZCXFNV NAIL, 6 OR MORE 05/15/2021 81665-PCZEUFO NAIL, 6 OR MORE 11/20/2021 89113-UXIVMYZ NAIL, 6 OR MORE 05/02/2022 68217-GJGXVRR NAIL, 6 OR MORE 10/21/2023 01354-Vzey Destruction, 1-14 10/21/2023 19876-Nfas Destruction, -14 05/02/2022 35795-Cqsn Destruction, 1-14 11/20/2021 41278-Jvyh Destruction, 1-14 05/15/2021 05460-Zycj Destruction, 1-14 02/09/2021 93230-Xlqr Destruction, -14 12/01/2020 05850-Uklp Destruction, 1-14 09/12/2020 16891-Mrbv Destruction, -14 04/27/2024 10987-Lceu Destruction, -14 01/23/2024 69854-Ctwr Destruction, -14 07/27/2024 06220- Debride <25 sq cm 07/06/2024 05239-AQAUSBL SKIN/TISSUE 07/27/2024 71229-VOVNXLD SKIN/TISSUE 10/22/2024 23790-BOODPDZ SKIN/TISSUE 06/18/2024 07734-WPZC SKIN LESIONS, OVER 4 07/27/20 95713-JXVV SKIN LESIONS, OVER 4 01/23/20 24 18314-SDRK SKIN LESIONS, OVER 4 04/27/20 24 82603-RWTV SKIN LESIONS, OVER 4 10/23/19 25 65465-SBHI SKIN LESIONS, OVER 4 10/21/19 24 78087-AAGD SKIN LESIONS, 2 TO 4 05/02/20 82285-ORGT SKIN LESIONS, 2 TO 4 05/15/20 21 53042-HUTT SKIN LESIONS, 2 TO 4 11/21/19 22 82722-ZIXZ SKIN LESIONS, 2 TO 4 11/12/19 20 47060-XYWS SKIN LESIONS, 2 TO 4 09/12/19 21 16114-EGXX SKIN LESIONS, 2 TO 4 12/02/19 21 60642-PCSU SKIN LESIONS, 2 TO 4 02/10/20 21 09548-WVFX SKIN LESIONS, 2 TO 4 06/30/20 20 46881-FYGX SKIN LESIONS, 2 TO 4 03/31/20 20 71547-UCOU SKIN LESIONS, 2 TO 4 01/21/20 85028-LEWA SKIN LESIONS, 2 TO 4 08/27/19 20 58565-ANQQ SKIN LESIONS, 2 TO 4 06/18/20 19 97048-UKAZ SKIN LESIONS, 2 TO 4 03/19/20 19 96124-LPJY SKIN LESIONS, 2 TO 4 01/09/20 19 15121-Ieqx. Subungual Hematoma 0 Next Appt Details Provider Name:Jimmy Torres , 01/21/2025 10:45:00 AM, [address] [place] [address], [address], Insurance Providers Payer Name Payer Address Payer Phone Subscriber Number Group Number Insured Name Patient Relationship to Insured Coverage Start Date Coverage End Date Medicare National [employer] [address] [facility] [place] [address] [id number] Mark Jay Self - patient is the insured [facility] [address] [place] [address] [id number] Mark Jay Self - patient is the insured 7 Medical (General) History Medical History History ICD Code CAD (Cholesterol) Psoriasis Measles Mumps Chicken pox Joint implants/screws - knee and hip Surgical History Surgery Date(Month/Year) hip replacement 04/1994 knee replacement 04/1996
--- OUTSIDE RECORDS SUMMARY | 2024-12-16 09:18 | XMS_ITS ---
Author Organization [facility] Address [address] [place] [address] Care Team Providers Care Milk Runner Name Role Phone Rad Antonio MD Primary Care Provider UnavailJimmy Melo [phone] REASON FOR VISIT BUY [facility] Encounters Encounter Location Date Provider Diagnosis [address] [address] 07/27/2024 Jimmy Torres Plan Of Treatment Next Appt Details Provider Name:Jimmy Torres , 01/21/2025 10:45:00 AM, [address] [place], [address], Progress Notes * Mark JAYDOB: [birth year] (73 yo M)Acc No.[id number]:07/27/2024 Patient:?Mark JAY :1950???Age:73 Y???Sex:Male Address:[address] [address], [place], [address] * true * Date:? Generated for Printi js/Bárbara/eTransmitting on:?12/16/2024 09:17 AM EDT
== END 2024-12-16 09:28 | disposition home or self-care (01) ==
LOC: HO.HMCHD 08:53
PROVIDERS: PCP Internal Medicine; Visit Provider Internal Medicine
DX: G47.00 Insomnia, unspecified (principal); E78.5 Hyperlipidemia, unspecified; Z86.0100 Personal history of colon polyps, unspecified

== ENCOUNTER → 2024-12-16 08:52 | Outpatient (BNVA) | payer MEDICARE, BC, SELFPAY | PROVIDERS: PCP Internal Medicine; Visit Provider Internal Medicine | DX: E78.5 Hyperlipidemia, unspecified (principal); I73.9 Peripheral vascular disease, unspecified; G47.00 Insomnia, unspecified; D72.821 Monocytosis (symptomatic); Z95.2 Presence of prosthetic heart valve; Z96.642 Presence of left artificial hip joint; Z86.0100 Personal history of colon polyps, unspecified | CPT/HCPCS: 96127; 99212 ==

== ENCOUNTER 2024-12-21 07:38 | Outpatient (REF) | payer MEDICARE, BC, SELFPAY ==
--- OUTSIDE RECORDS SUMMARY | 2024-12-21 07:41 | XMS_ITS ---
Author Organization [facility] Address [address] [place] [address] Care Team Providers Care Copier Repair Technician Name Role Phone Rad Antonio MD Primary Care Provider UnavailJimmy Melo [phone] [facility] wound care Encounters Encounter Location Date Provider Diagnosis [address] [address] 07/27/2024 Jimmy Torres Plan Of Treatment Next Appt Details Provider Name:Jimmy Torres , 01/21/2025 10:45:00 AM, [address] [place], [address], Progress Notes * Mark JAYDOB: [birth year] (73 yo M)Acc No.[id number]:07/27/2024 Patient:?Mark JAY :1950???Age:73 Y???Sex:Male Address:[address] [address], [place], [address] * true * Date:? Generated for Printi ng/Luzg/eTransmitting on:?12/21/2024 07:41 AM EDT
--- OUTSIDE RECORDS SUMMARY | 2024-12-21 07:41 | XMS_ITS | Data Portability ---
Author Organization [place] [facility] Address [address] [place] [address] Care Team Providers Care Dialysis Nurse Name Role Phone SUSAN MCCARTHY Primary Care Provider [phone] Assessment No assessment recorded. Plan of Treatment Reminders Order Date Submit Date Provider Last Modified By Organization Details Last Modified Time Details Appointments None recorded. Lab None recorded. Referral None recorded. Procedures None recorded. Surgeries None recorded. Imaging XR, knee, 4 or more view - 303 4v left knee 2023 024 [facility]ie [facility], [address] [facility] [address], [place], [address], 4 16:06:34 Medication Orders diclofena c 1 % topical gel 2023 024 [place] [id number], [address] [facility], [place], [address], 4 16:09:52 Patient TargetsNo targets recorded. Patient InstructionsNo instructions recorded. Reason for Referral None Reported. Results Created Date Observation Date Name Description Value Unit Range Abnormal Flag Note LastModifiedBy Organization Detail LastModifiedTime 04/16/20 24 11/18/2022 imagi ng/di agnos tic resul t No observ ation record ed. [email or web address] Not Available 03/20 06:40:04 04/16/20 24 11/18/2022 imagi ng/di agnos tic resul t No observ ation record ed. [email or web address] Not Available 03/20 06:40:05 04/16/20 24 11/18/2022 imagi ng/di agnos tic resul t No observ ation record ed. [email or web address] Not Available 03/20 06:40:06 Result Notes None recorded. Problems Name Problem SNOMED Code Status Onset Date Resolution Date Notes Provider Name and Address Organization Details Recorded Time Hip joint prosthesi s present 451565644 Active 2019 Problem Code: Z96.642; Problem Code Type: ICD-10; Status: 'A'; Not Available [facility] 11:27:15 Osteoarth ritis of left knee joint 631214300746 109 Active 2023 Elicia Rollins PA-C [address], [place], [address] , [facility] 16:28:37 Problem Notes None recorded. Procedures Surgical History Date Name Laterality Status Provider Name and Address Organization Details Recorded Time 01/15/2024 Sports Knee 4&1 completed Elicia Rollins PA-C [address], [place], [address], [facility] 01/15/2024 16:28:14 Imaging Results Imaging Date Name Status LastModified by Organiz ation Details LastModified Time 11/18/2022 imaging/diag nostic result completed Information not available 04/16/2024 06:40:04 11/18/2022 imaging/diag nostic result completed Information not available 04/16/2024 06:40:05 11/18/2022 imaging/diag nostic result completed Information not available 04/16/2024 06:40:06 Procedure Notes None recorded. Medical Equipment None Reported. Allergies Allergen ID Allergen Name Allergen Category Reaction Reaction Severity Criticality Documentation Date Start Date Code Code System Note Provider Name and Address Organization Details Recorded Time 10678 Product containin g glucocort icoid (product) medicatio n Not available Not available Not available 10/20/20232011 15665 6006 SNOMED Aller gyNam e: 'Ster oids' ; Aller gyRea ction : 'NUMB NESS' ; Elicia Case i, PA-C [address], [place], [address], [facility] 4 16:30:54 24991 Product containin g penicilli n (product) medicatio n Not available Not available Not available 10/20/20232004 99949 8001 SNOMED Elicia Manpreet cheng PA-C [address], [place], [address], [facility] 4 16:31:01 Medications Name Sig Start Date Stop Date Status Note LastModified by Organization Details LastModified Time atorvastatin 10 mg tablet TAKE 1 TABLET BY MOUTH EVERY DAY active Not Available Not Available No t Available clobetasol 0.05 % topical cream APPLY AM & PM TO PSORIASIS ARMS AND LEGS FOR 7-10 DAYS WHEN NEEDED NEVER USE FACE GROIN OR UNDERARMS active Not Available Not Available No t Available triamcinolon e acetonide 0.1 % topical cream APPLY AM AND PM ECZEMA ON ABDOMEN NEEDED WHEN NEEDED KEEP REFRIGERATE D active Not Available Not Available No t Available prednisolone acetate 1 % eye drops,suspen collette INSTILL 1 DROP INTO LEFT EYE FOUR TIMES A DAY FOR 4 DAYS AFTER LASER PROCEDURE THEN DISCONTINUE active Not Available Not Available Not Available pseudoephedr ine-guaifene sin ER 80-700 mg tablet,exten ded release 1-2 TABS EVERY 4-6 HRS PRN PAIN NOT TO EXCEED 8 TABS IN 24 HRS 2009 active Statu s: 'Curr ent'; Not Available Not Available Not Available halobetasol propionate 0.05 % topical cream APPLY AM & PM RASH FOR 2 WKS, STARTING WK 3 APPLY AM AND PM FRIDAY, FRIDAY, FRIDAY UNTIL APPT active Not Available Not Available N ot Available zolpidem 10 mg tablet TAKE 1 TABLET BY MOUTH EVERYDAY AT BEDTIME active Not Available Not Available No t Available clobetasol 0.05 % scalp solution APPLY 5-10 DROPS 1 TO 2 TIMES A DAY TO SCALP AND MASSAGE IN active Not Available Not Available N ot Available diclofenac 1 % topical gel APPLY 2 GRAMS TO THE AFFECTED AREA(S) BY TOPICAL ROUTE 4 TIMES PER DAY active Not Available Not Available No t Available Tremfya 100 mg/mL subcutaneous syringe active Not Available Not Available Not Available Tremfya 100 mg/mL subcutaneous auto-injecto r active Not Available Not Available Not Available Vitals Date Recorded Body height Body mass index (BMI) Body weight Provider Name and Address Organization Details Last Updated DateTime 01/15/2024 170.18 cm 25.1 kg/m2 31713.78 g EUGENE DUKESHEAD [place] - [facility] 01/15/2024 15:24:38 Social History None recorded. Functional Status None recorded. Mental Status None recorded. Family History Nothing Reported. Medical History Condition Response Arthritis Y Cholesterol Y Past Encounters Encounter ID Performer Location Encounter Start Date Encounter Closed Date Diagnosis/Indication Diagnosis SNOMED-CT Code Diagnosis ICD10 Code Diagnosis Note [id number] [facility] [address] [place] [address] 01/15/2024 15:16:36 01/26/2024 16:06:34 Pain of left knee joint 0181021688 99897 M25.562 Osteoarthr itis of left knee joint 1513246191 74429 M17.12 Health Concerns Section Related Observation LastModified by Organization Detai ls LastModified Time None Recorded Concern Status LastModified by Organization Details LastModified Time None Recorded Advance Directives Directive None Recorded Payers Encounter Date Sequence Insurance Name Policy Number Policy Hernandez Covered Member ID Hernandez Member ID Guarantor Name 01/15/2024 2 [facility] [employer] 104 Mark Jay III [id number] Mark Jay 01/15/2024 1 [place]: [employer] Mark Jay III [id number] Mark Jay Notes Date Note Type Note Provider Name and Address Organization Details Recorded Time 01/15/2024 text/html I am seeing the patient today under the supervision of {{Joshua [employer]ies [employer]}} who was available but who did not see the patient. HPI: 73-year-old male patient presents today for left knee pain that has been worsening over the last month, no injury. He localizes pain to the medial aspect of his knee. He reports pain at rest, prolonged walking, stairs and at night. He reports the pain is intermittent in nature. He has tried Tylenol with minimal relief. Of note, history of left knee ORIF with 2 screws in the medial femoral condyle 1994. Past family, social history and review of systems has been reviewed, updated and is located in the patient? s chart. X-RAYS: 4v X-rays of the {{Right Left* Bilate ral}} knee were ordered, obtained and reviewed today at [facility] today demonstrates moderate medial and patellofemoral space narrowing. IMPRESSION: {{Right Left* Bilate ral}} knee osteoarthritis with remote history of ORIF 1994, with 2 screws at the medial femoral condyle PLAN: Findings reviewed. We discussed conservative treatment as an appropriate initial option. He elected to proceed with left knee cortisone injection today. Diclofenac cream was sent to his pharmacy. Follow-up in 3 months for recheck. All of his concerns were addressed today and he understands and agrees with the plan. Speech recognition [employer] software was used to create portions of this document. An attempt at proofreading has been made to minimize errors. Please call for corrections. Elicia Rollins PA-C [address] [facility] [employer] [facility] [address], [place], [address], [facility] 01/15/2024 16:31:23
--- OUTSIDE RECORDS SUMMARY | 2024-12-21 07:41 | XMS_ITS ---
Author Organization [facility] Address [address] [facility] [place] [address] Care Team Providers Care Singe Winder Name Role Phone Rad Antonio MD Primary Care Provider Unavaila Jimmy Rojas Unavailable [phone] Allergies Allergen (clinical drug ingredient) Drug/Non Drug [...] Ordered Date Performed Result Body Sit e 77952-OJVCZRO NAIL, 6 OR MORE 10/22/2024 N/A 04513-SCJXOVS SKIN/TISSUE 10/22/2024 N/A 95172-RHNL SKIN LESIONS, OVER 4 10/22/2024 N/A Encounters Encounter Location Date Provider Diagnosis [facility] [place] [address] [place] [address] 10/22/2024 Jimmy Torres Atherosclerosis of [place] artery of both lower extremities, with unspecified presence of clinical manifestation I70.203 ; Tinea unguium B35.1 ; Pain in right toe(s) M79.674 ; Pain in left toe(s) M79.675 and Ischemic ulcer of left foot with fat layer exposed L97.522 Assessments Encounter Date Diagnosis (ICD Code) Assessment Notes Treatment Notes Treatment Clinical Notes Section Notes 10/22/2024 Atherosclerosis of [place] artery of both lower extremities, with unspecified [...] INSTRUCTIONS.pdf) Pending Test Test Name Order Date 70992-KVTTOOI NAIL, 6 OR MORE 10/22/2024 89883-ATQJIDY SKIN/TISSUE 10/22/2024 85196-HLOH SKIN LESIONS, OVER 4 10/23/19 25 Next Appt Details Follow Up: 2 Months, Reason: Provider Name:Jimmy Torres , 01/21/2025 10:45:00 AM, [address] [place] [address], [phone], Procedure Notes * Category Sub-Category Detail Notes [...] use of a nail nipper and/or dremel-type paint grinder, to a more viable healthy nail [...] to maintain effectiveness in symptomatic relief - 34319 Debride skin and subQ Open wound ISCHEMIC: [...] of the wound post debriement is stable (38519) Keratoma Treatment Parring or Cutting o f [...] instrumentation by the physician of record - 80209, Q8 Progress Notes * Mark JAYDOB: [birth year] (73 yo M)Acc No.[id number]:10/22/2024 Progress Note Patient:?Mark JAY Provider:?Jimmy Torres DPM :1950???Age:73 Y???Sex:Male Roberth e:10/22/2024 Address:[address] [place] [address] [address] [facility] Pcp:Rad Antonio MD Subjective: * Chief Complaints: [...] yes, walking. ?Marital status: single. ?Occupation: Retired-, [employer]. * Medications:?Not-Taking/PRNL ipitor 10 MG Tablet 1 [...] Assessment: 1.?Tinea unguium - B35.1???2 .?Atherosclerosis of [place] artery of both lower extremities, with unspecified presence of clinical manifestation - I70.203 (Primary)???3.?Pain in right toe(s) - M79.674???4.?Pain in left toe(s) - M79.675 ??5.?Ischemic ulcer of left foot with fat layer exposed - L97.522???Notes :Response to treatment Improving Unresolved??? Plan: * Treatment: 2.?Tinea unguium?Procedure: 08906-VEDQECE NAIL, 6 OR MORE 3.?Ischemic ulcer of left fo ot with fat layer exposed?Procedure: 21860-LJJYIYZ SKIN/TISSUE Notes: Patient Educated with: WOUND CARE [...] use of a nail nipper and/or dremel-type paint grinder, to a more viable healthy nail [...] to maintain effectiveness in symptomatic relief - 13152.?Debride skin and subQ:?Open wound?ISCHEMIC: Physician of record [...] of the wound post debriement is stable (39687).?Keratoma Treatment:?Parring or Cutting of Benign Hyperkeratotic Lesion(s)?(-57) [...] instrumentation by the physician of record - 30910, Q8.? * Procedure Codes:?28660 DEBRI DE SKIN/TISSUE, Modifiers: XS 83300 DEBRIDE NAIL, 6 OR MORE, Modifiers: XS 44177 TRIM SKIN LESIONS, OVER 4, Modifiers: XS [...] Torres DPM Date:?2024 Generated for Sal weinstein/Bárbara/Shilo on:?12/21/2024 07:41 AM EDT History and Physical Notes * [...] without pressure accommodation At Risk footcare Pt [facility] Last PCP Visit: Date: 09/21/2024 Examination [...]
--- OUTSIDE RECORDS SUMMARY | 2024-12-21 07:42 | XMS_ITS | Patient Health Record ---
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 Name Role Phone Rad Antonio MD Primary Care Provider Unavaila Jimmy Rojas Unavailable [phone] Allergies Allergen (clinical drug ingredient) Drug/Non Drug [...] Problem Status W/U Status Risk Notes Problem [id number] Atherosclerosis of [place] artery of both lower extremities, with unspecified [...] Ordered Date Performed Result Body Sit e 63917-UTUKCER NAIL, 6 OR MORE 01/23/2024 N/A 81173-Tkog Destruction, 1-14 01/23/2024 N/A 52710-YOQO SKIN LESIONS, OVER 4 01/23/2024 N/A 67703-UNDEZYL NAIL, 6 OR MORE 04/27/2024 N/A 43790-Ncar Destruction, 1-14 04/27/2024 N/A 01785-SRDK SKIN LESIONS, OVER 4 04/27/2024 N/A 25879-AYMDQMA SKIN/TISSUE 06/18/2024 N/A 30312- Debride <25 sq cm 07/06/2024 N/A 99157-HDVINJZ NAIL, 6 OR MORE 07/27/2024 N/A 54001-Sgpz Destruction, 1-14 07/27/2024 N/A 37385-PFBCWWA SKIN/TISSUE 07/27/2024 N/A 22311-WGZD SKIN LESIONS, OVER 4 07/27/2024 N/A 45387-WSBORUT NAIL, 6 OR MORE 10/22/2024 N/A 99409-XUSXRCY SKIN/TISSUE 10/22/2024 N/A 49716-WOIU SKIN LESIONS, OVER 4 10/22/2024 N/A Encounters Encounter Location Date Provider Diagnosis [facility] [place] [address] [place] [address] 01/23/2024 Jimmy Torres Atherosclerosis of [place] artery of both lower extremities, with unspecified presence of clinical manifestation I70.203 ; Plantar wart B07.0 ; Tinea unguium B35.1 ; Pain in right toe(s) M79.674 ; Pain in left toe(s) M79.675 and Right foot pain M79.[address] [address] 04/27/2024 Jimmy Brian Atherosclerosis of [place] artery of both lower extremities, with unspecified presence of clinical manifestation I70.203 ; Plantar wart B07.0 ; Tinea unguium B35.1 ; Pain in right toe(s) M79.674 ; Pain in left toe(s) M79.675 and Right foot pain M79.[address] [address] 06/18/2024 Jimmy Brian Pain in left foot M79.672 ; Pain in left ankle and joints of left foot M25.572 ; Bursitis of left foot M77.52 ; 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 and Ischemic ulcer of left foot with fat layer exposed L97.[address] [address] 07/06/2024 Jimmy Solerier Ischemic ulcer of le ft foot, limited to breakdown of skin L97.[address] [address] 07/27/2024 Jimmy Brian Atherosclerosis of [place] artery of both lower extremities, with unspecified presence of clinical manifestation I70.203 ; Plantar wart B07.0 ; Tinea unguium B35.1 ; Pain in right toe(s) M79.674 ; Pain in left toe(s) M79.675 ; Right foot pain M79.671 and Ischemic ulcer of left foot with fat layer exposed L97.[address] [address] 10/22/2024 Jimmy Brian Atherosclerosis of [place] artery of both lower extremities, with unspecified presence of clinical manifestation I70.203 ; Tinea unguium B35.1 ; Pain in right toe(s) M79.674 ; Pain in left toe(s) M79.675 and Ischemic ulcer of left foot with fat layer exposed L97.[address] [address] [facility] [place] [address] [place] [address] 06/[facility]/2024 [facility] [address] [address] 07/[facility]20[facility] [address] 07/27/2024 [facility] Encounter Date Diagnosis (ICD Code) Assessment Notes Treatment Notes Treatment Clinical Notes Section Notes 01/23/2024 Plantar wart (ICD-10 - B07.0) 01/23/2024 Atherosclerosis of [place] artery of both lower extremities, with unspecified presence of clinical manifestation (ICD-10 - I70.203) 04/27/2024 Plantar wart (ICD-10 - B07.0) 04/27/2024 Atherosclerosis of [place] artery of both lower extremities, with unspecified [...] wart (ICD-10 - B07.0) 07/27/2024 Atherosclerosis of [place] artery of both lower extremities, with unspecified presence of clinical manifestation (ICD-10 - I70.203) 10/22/2024 Tinea unguium (ICD-10 - B35.1) 10/22/2024 Atherosclerosis of [place] artery of both lower extremities, with unspecified [...] X ray : Foot, left 3V 06/18/2024 63396-XAJSHFH NAIL, 6 OR MORE 07/27/2024 75854-TADLGIJ NAIL, 6 OR MORE 01/23/2024 56821-JLEJLTM NAIL, 6 OR MORE 04/27/2024 95389-MIRBHKI NAIL, 6 OR MORE 10/22/2024 56127-ULJBHIC NAIL, 6 OR MORE 01/08/2019 25099-WXSKZFK NAIL, 6 OR MORE 03/19/2019 23559-JNMGBER NAIL, 6 OR MORE 06/18/2019 88344-MASLTRX NAIL, 6 OR MORE 08/27/2019 71825-QNPZJCL NAIL, 6 OR MORE 11/12/2019 18831-OSADGCJ NAIL, 6 OR MORE 01/21/2020 89059-HBQWUAP NAIL, 6 OR MORE 03/31/2020 91958-ZTYMLQD NAIL, 6 OR MORE 06/30/2020 95686-ECXUQLI NAIL, 6 OR MORE 09/12/2020 08221-CLCZRUS NAIL, 6 OR MORE 12/01/2020 66582-JMNFOAU NAIL, 6 OR MORE 02/09/2021 77038-XXFLKDY NAIL, 6 OR MORE 05/15/2021 51870-EPPLPPU NAIL, 6 OR MORE 11/20/2021 29448-VDJAYGD NAIL, 6 OR MORE 05/02/2022 77705-MZJZTDX NAIL, 6 OR MORE 10/21/2023 12384-Wusv Destruction, 1-14 10/21/2023 27490-Rcmf Destruction, -14 05/02/2022 31609-Qoee Destruction, 1-14 11/20/2021 37914-Uszb Destruction, 1-14 05/15/2021 10671-Nsxv Destruction, 1-14 02/09/2021 16467-Fcll Destruction, -14 12/01/2020 71220-Gygc Destruction, 1-14 09/12/2020 20445-Mpfr Destruction, -14 04/27/2024 69088-Spzl Destruction, -14 01/23/2024 05755-Okvc Destruction, -14 07/27/2024 08470- Debride <25 sq cm 07/06/2024 73850-COTAMJJ SKIN/TISSUE 07/27/2024 92841-GHEZXMI SKIN/TISSUE 10/22/2024 77700-FHDKBWV SKIN/TISSUE 06/18/2024 94506-DQRY SKIN LESIONS, OVER 4 07/27/20 77824-GSZA SKIN LESIONS, OVER 4 01/23/20 24 90253-YAJJ SKIN LESIONS, OVER 4 04/27/20 24 08026-CKWD SKIN LESIONS, OVER 4 10/23/19 25 46291-FLGQ SKIN LESIONS, OVER 4 10/21/19 24 19099-BIDD SKIN LESIONS, 2 TO 4 05/02/20 69664-XGXS SKIN LESIONS, 2 TO 4 05/15/20 21 22238-GXIG SKIN LESIONS, 2 TO 4 11/21/19 22 68738-PVCZ SKIN LESIONS, 2 TO 4 11/12/19 20 73583-HTAB SKIN LESIONS, 2 TO 4 09/12/19 21 96855-GNCL SKIN LESIONS, 2 TO 4 12/02/19 21 40954-KNWU SKIN LESIONS, 2 TO 4 02/10/20 21 48529-ARFJ SKIN LESIONS, 2 TO 4 06/30/20 20 19076-PBRI SKIN LESIONS, 2 TO 4 03/31/20 20 89944-XPDQ SKIN LESIONS, 2 TO 4 01/21/20 26678-OKIP SKIN LESIONS, 2 TO 4 08/27/19 20 39073-GIIG SKIN LESIONS, 2 TO 4 06/18/20 19 30325-XCVE SKIN LESIONS, 2 TO 4 03/19/20 19 98113-VZFO SKIN LESIONS, 2 TO 4 01/09/20 19 43888-Gker. Subungual Hematoma 0 Next Appt Details Provider Name:Jimmy Torres , 01/21/2025 10:45:00 AM, [address] [place] [address], [address], Insurance Providers Payer Name Payer Address Payer Phone Subscriber Number Group Number Insured Name Patient Relationship to Insured Coverage Start Date Coverage End Date Medicare National Govt Svcs Inc [address] [facility] [place] [address] [id number] Mark Jay Self - patient is the insured [facility] [address] [place] [address] [id number] Mark Jay Self - patient is the insured 7 Medical (General) History Medical History History ICD Code CAD (Cholesterol) Psoriasis Measles Mumps Chicken pox Joint implants/screws - knee and hip Surgical History Surgery Date(Month/Year) hip replacement 04/1994 knee replacement 04/1996
--- OUTSIDE RECORDS SUMMARY | 2024-12-21 07:42 | XMS_ITS ---
Author Organization [facility] Address [address] [place] [address] Care Team Providers Care Compo Caster Name Role Phone Rad Antonio MD Primary Care Provider UnavailJimmy Melo [phone] REASON FOR VISIT BUY [facility] Encounters Encounter Location Date Provider Diagnosis [address] [address] 07/27/2024 Jimmy Torres Plan Of Treatment Next Appt Details Provider Name:Jimmy Torres , 01/21/2025 10:45:00 AM, [address] [place], [address], Progress Notes * Mark JAYDOB: [birth year] (73 yo M)Acc No.[id number]:07/27/2024 Patient:?Mark JAY :1950???Age:73 Y???Sex:Male Address:[address] [address], [place], [address] * true * Date:? Generated for Printi ng/Luzg/eTransmitting on:?12/21/2024 07:41 AM EDT
[2024-12-21 09:52] LABS: MANUAL DIFF FLAG NO
[2024-12-21 10:52] LABS: Basophils Absolute Auto 0.1 X10*3/uL (0.0-0.2); Basophils Percent Auto 0.8 % (0-2); Eosinophils Absolute Auto 0.2 X10*3/uL (0.0-0.4); Eosinophils Percent Auto 3.9 % (0-4); Hematocrit 42.7 % (42.0-52.0); Hemoglobin 13.8 g/dl (14.0-18.0); Imm Gran Abs Auto 0.05 X10*3/uL (0.00-0.03); Imm Gran Pct Auto 0.8 % (0.0-0.4); Mean Corpuscular HGB Conc 32.3 g/dl (31.0-36.0); Mean Corpuscular Hemoglobin 27.9 pg (27.0-33.0); Mean Corpuscular Volume 86.3 fL (80.0-98.0); Mean Platelet Volume 10.5 fL (9.4-12.4); Monocytes Percent Auto 17.5 % (2-11); Neutrophils Absolute Auto 3.6 x10*3/uL (2.0-8.3); Platelet Count 226 X10*3/uL (160-400); Red Blood Count 4.95 X10*6/uL (4.60-5.80); Red Cell Distribution Width 13.7 % (11.0-16.0)
[2024-12-21 11:22] LABS: Anion Gap 12 (12-20)
[2024-12-21 11:34] LABS: Prostate Specific Antigen 1.71 ng/mL (<0.05-4.0)
[2024-12-21 11:37] LABS: Alanine Aminotransferase 16 U/L (0-40); Albumin Level 4.2 g/dL (3.5-5.0); Alkaline Phosphatase 97 U/L (39-117); Aspartate Amino Transferase 25 U/L (5-37); Bilirubin Total 0.7 mg/dL (0.0-1.0); Blood Urea Nitrogen 10 mg/dL (9-16); Calcium 9.1 mg/dL (8.4-10.2); Carbon Dioxide 28 mmol/L (22-29); Chloride 106 mmol/L (96-108); Cholesterol 112 mg/dL (<200); Estimated Glomerular Filt Rate > 60; Glucose Random 112 mg/dL (60-115); HDL Cholesterol 38 mg/dL (>40); LDL Cholesterol Calculated 58 mg/dL (<100); Potassium 4.4 mmol/L (3.3-5.1); Sodium 142 mmol/L (135-145); Total Protein 7.3 g/dL (6.5-8.0); Triglycerides 84 mg/dL (<150)
== END 2024-12-21 07:39 | disposition home or self-care (01) ==
LOC: HO.10HDL 07:38
PROVIDERS: Visit Provider Internal Medicine
DX: Z13.220 Encounter for screening for lipoid disorders (principal); G47.00 Insomnia, unspecified; D72.821 Monocytosis (symptomatic); Z13.228 Encounter for screening for other metabolic disorders; Z12.5 Encounter for screening for malignant neoplasm of prostate; Z13.6 Encounter for screening for cardiovascular disorders
CPT/HCPCS: 80053; 80061; 84153; 85025

== ENCOUNTER 2025-03-11 07:48 | Outpatient (AMB) | payer MEDICARE, BC, SELFPAY ==
--- OUTSIDE RECORDS SUMMARY | 2025-03-11 07:51 | XMS_ITS | Patient Health Record ---
Author Organization [facility] Address [address] [facility] [place] [address] Care Team Providers Care Transit Planner Name Role Phone Elicia Montiel Primary Care Provider Jimmy Santa Unavailable [phone] Allergies Allergen (clinical drug ingredient) Drug/Non Drug Allergy documented on EMR Reaction Allergy Type Onset Date Status amoxicillin Amoxicillin Unknown Drug Allergy Act erica Cortisone Unknown Drug Allergy Active Substance with penicillin structure and antibacterial mechanism of action (substance) Penicillins Unknown Drug Allergy Active Reason For Referral No Information Medications Medication SIG (Take, Route, Frequency, Duration) Notes Start Date End Date Status Zolpidem Tartrate No t-Taking Ammonium Lactate 12 % 1 application to a ffected area Externally to feet Twice a day; Duration: 30 days Not-Taking Lipitor 10 MG 1 tablet Orally Once a day; Duration: 30 day(s) Not-Damian ing Immunizations Vaccine Route Administration Date Status Comme nts Influenza Unknown 05/19/2024 Administered COVID-19 Matthew & Matthew/Mary Unknown 08/02/2021 Administered 1st 12/01/2020 Social History Tobacco Use: Social History Observation Description Date Details (start date - stop date) Never Smoker NA - NA Tobacco use other than smoking: Question Answer Notes Are you an other tobacco user? No Tobacco Control (Standard) Question Answer Notes Tobacco use: Nonsmoker AUDIT-C (Standard) Question Answer Notes Did you have a drink containing alcohol in the p ast year? No Points 0 Interpretation Negative Problems Problem Type SNOMED Code ICD Code Onset Dates Problem Status W/U Status Risk Notes Problem Bilateral atherosclerosis of arteries of lower limbs (disorder) ([id number]) Atherosclerosis of [place] artery of both lower extremities, with unspecified presence of clinical manifestation (I70.203) Active confirmed Problem Ischemic ulcer o f left foot, limited to breakdown of skin (L97.521) Active confirmed Response to treatment Improvement Problem Ischemic ulcer o f left foot with fat layer exposed (L97.522) Active confirmed Response to treatment Improving Unresolved Vital Signs Blood pressure diastolic 65 mm Hg 01/21/2025 Height 5ft7.5in in 01/21/2025 Blood pressure systolic 128 mm Hg 01/21/2025 Weight 163 lbs 01/21/2025 BMI 25.15 kg/m2 01/21/2025 Procedures Procedure Date Ordered Date Performed Result Body Sit e 91432-YTWNPMK NAIL, 6 OR MORE 04/27/2024 N/A 41257-Nkpm Destruction, 1-04/27/2024 N/A 67121-LLQK SKIN LESIONS, OVER 04/27/2024 N/A 95173-BNBNJOP SKIN/TISSUE 06/18/2024 N/A 95491- Debride <25 sq cm 07/06/2024 N/A 84807-GGFEJLD NAIL, 6 OR MORE 07/27/2024 N/A 79416-Irjm Destruction, 1-07/27/2024 N/A 57412-NDSHYMK SKIN/TISSUE 07/27/2024 N/A 87263-NGUH SKIN LESIONS, OVER 4 07/27/2024 N/A 45757-MJIIDOE NAIL, 6 OR MORE 10/22/2024 N/A 89930-BZARZUE SKIN/TISSUE 10/22/2024 N/A 13835-PKFS SKIN LESIONS, OVER 4 10/22/2024 N/A 88618-SUFZWXR NAIL, 6 OR MORE 01/21/2025 N/A 28166-WFBH SKIN LESIONS, OVER 4 01/21/2025 N/A Encounters Encounter Location Date Provider Diagnosis [facility] [place] [address] [place] [address] 04/27/2024 Jimmy Torres Atherosclerosis of [place] artery of both lower extremities, with unspecified presence of clinical manifestation I70.203 ; Plantar wart B07.0 ; Tinea unguium B35.1 ; Pain in right toe(s) M79.674 ; Pain in left toe(s) M79.675 and Right foot pain M79.[address] [address] 06/18/2024 Jimmy Brian Pain in left foot M79.672 ; Pain in left ankle and joints of left foot M25.572 ; Bursitis of left foot M77.52 ; 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 and Ischemic ulcer of left foot with fat layer exposed L97.[address] [address] 07/06/2024 Jimmy Brian Ischemic ulcer of le ft foot, limited to breakdown of skin L97.[address] [address] 07/27/2024 Jimmy Brian Atherosclerosis of [place] artery of both lower extremities, with unspecified presence of clinical manifestation I70.203 ; Plantar wart B07.0 ; Tinea unguium B35.1 ; Pain in right toe(s) M79.674 ; Pain in left toe(s) M79.675 ; Right foot pain M79.671 and Ischemic ulcer of left foot with fat layer exposed L97.[address] [address] 10/22/2024 Jimmy Brian Atherosclerosis of [place] artery of both lower extremities, with unspecified presence of clinical manifestation I70.203 ; Tinea unguium B35.1 ; Pain in right toe(s) M79.674 ; Pain in left toe(s) M79.675 and Ischemic ulcer of left foot with fat layer exposed L97.[address] [address] 01/21/2025 Jimmy Brian Atherosclerosis of [place] artery of both lower extremities, with unspecified presence of clinical manifestation I70.203 ; Tinea unguium B35.1 ; Pain in right toe(s) M79.674 ; Pain in left toe(s) M79.675 and Ischemic ulcer of left foot with fat layer exposed L97.522 [facility] [address] [address] 06/16/2024 Jimmy Brian [facility] [address] [address] 06/18/2024 Jimmy Brian [facility] [address] 07/27/2024 Jimmyfrancisco Torres [facility] [address] 07/27/2024 Jimmy Torres [facility] Encounter Date Diagnosis (ICD Code) Assessment Notes Treatment Notes Treatment Clinical Notes Section Notes 04/27/2024 Plantar wart (ICD-10 - B07.0) 04/27/2024 Atherosclerosis of [place] artery of both lower extremities, with unspecified [...] wart (ICD-10 - B07.0) 07/27/2024 Atherosclerosis of [place] artery of both lower extremities, with unspecified presence of clinical manifestation (ICD-10 - I70.203) 10/22/2024 Tinea unguium (ICD-10 - B35.1) 10/22/2024 Atherosclerosis of [place] artery of both lower extremities, with unspecified presence of clinical manifestation (ICD-10 - I70.203) 01/21/2025 Tinea unguium (ICD-10 - B35.1) 01/21/2025 Atherosclerosis of [place] artery of both lower extremities, with unspecified presence of clinical manifestation (ICD-10 - I70.203) 10/22/2024 Pain in right toe(s) (ICD-10 - M79.674) 01/21/2025 Pain in right toe(s) (ICD-10 - M79.674) 07/27/2024 Tinea unguium (ICD-10 - B35.1) 06/18/2024 Bursitis of left foot (ICD-10 - M77.52) 04/27/2024 Tinea unguium (ICD-10 - B35.1) 04/27/2024 Pain in right toe(s) (ICD-10 - M79.674) 06/18/2024 Tailor's bunion of left foot (ICD-10 - M21.622) 07/27/2024 Pain in right toe(s) (ICD-10 - M79.674) 01/21/2025 Pain in left toe(s) (ICD-10 - M79.675) 10/22/2024 Pain in left toe(s) (ICD-10 - M79.675) 10/22/2024 Ischemic ulcer of left foot with fat layer exposed (ICD-10 - L97.522) Response to treatment Improving Unresolved Patient Educated with: WOUND CARE INSTRUCTIONS. pdf (WOUND CARE INSTRUCTIONS. pdf) 01/21/2025 Ischemic ulcer of left foot with fat layer exposed (ICD-10 - L97.522) 07/27/2024 Pain in left toe(s) (ICD-10 - M79.675) 06/18/2024 Ischemic ulcer of left foot with fat layer exposed (ICD-10 - L97.522) Response to treatment,Nonap plicable Patient Educated with: WOUND CARE INSTRUCTIONS. pdf (WOUND CARE INSTRUCTIONS. pdf) 04/27/2024 Pain in left toe(s) (ICD-10 - M79.675) 04/27/2024 Right foot pain (ICD-10 - M79.671) 07/27/2024 Right foot pain (ICD-10 - M79.671) 07/27/2024 Ischemic ulcer of left foot with fat layer exposed (ICD-10 - L97.522) Response to treatment Worse Patient Educated with: WOUND CARE INSTRUCTIONS. pdf (WOUND CARE INSTRUCTIONS. pdf) Plan Of Treatment Pending Test Test Name Order Date X ray : Foot, left 3V 06/18/2024 04073-DATKNLY NAIL, 6 OR MORE 07/27/2024 42460-MITPYQI NAIL, 6 OR MORE 01/23/2024 35946-ZZQSVTR NAIL, 6 OR MORE 04/27/2024 19784-TVVMEHN NAIL, 6 OR MORE 10/22/2024 43890-TGABHJV NAIL, 6 OR MORE 01/21/2025 98031-WSYEAUL NAIL, 6 OR MORE 01/08/2019 51715-RMNCOTL NAIL, 6 OR MORE 03/19/2019 12788-ZDWTQXN NAIL, 6 OR MORE 06/18/2019 69779-ZJZCDFJ NAIL, 6 OR MORE 08/27/2019 40173-TEGNKGK NAIL, 6 OR MORE 11/12/2019 41227-EHBREUI NAIL, 6 OR MORE 01/21/2020 66305-QUJSPLU NAIL, 6 OR MORE 03/31/2020 44756-FTJGXPX NAIL, 6 OR MORE 06/30/2020 54138-ZBRZHSY NAIL, 6 OR MORE 09/12/2020 01091-YBGDQPE NAIL, 6 OR MORE 12/01/2020 51077-JYDGQHL NAIL, 6 OR MORE 02/09/2021 84567-EMEJUXJ NAIL, 6 OR MORE 05/15/2021 46228-EZMFQEQ NAIL, 6 OR MORE 11/20/2021 21368-NQVNUPM NAIL, 6 OR MORE 05/02/2022 21362-MUOEHAB NAIL, 6 OR MORE 10/21/2023 02628-Eiyy Destruction, 1-14 10/21/2023 12069-Xath Destruction, -14 05/02/2022 90652-Ohvm Destruction, -14 11/20/2021 15286-Vivx Destruction, -14 05/15/2021 07941-Bszw Destruction, -14 02/09/2021 92546-Svdc Destruction, -14 12/01/2020 57262-Thuv Destruction, 1-14 09/12/2020 83932-Ayxq Destruction, -14 04/27/2024 47170-Vpik Destruction, -14 01/23/2024 73545-Fflb Destruction, -14 07/27/2024 20935- Debride <25 sq cm 07/06/2024 45038-BVHQKUC SKIN/TISSUE 07/27/2024 92508-WJYMSYW SKIN/TISSUE 10/22/2024 81918-NYQJXKQ SKIN/TISSUE 06/18/2024 84257-QYNI SKIN LESIONS, OVER 4 07/27/20 83488-UMLJ SKIN LESIONS, OVER 4 01/23/20 66441-POCJ SKIN LESIONS, OVER 4 04/27/20 66319-EIUE SKIN LESIONS, OVER 4 10/23/19 00140-YRQF SKIN LESIONS, OVER 4 01/22/20 54090-KDIF SKIN LESIONS, OVER 4 10/21/19 24 95034-LTLC SKIN LESIONS, 2 TO 4 05/02/20 50342-JGIC SKIN LESIONS, 2 TO 4 05/15/20 37053-KFZD SKIN LESIONS, 2 TO 4 11/21/19 64981-TTRN SKIN LESIONS, 2 TO 4 11/12/19 20 60920-XRKM SKIN LESIONS, 2 TO 4 09/12/19 96029-EBOB SKIN LESIONS, 2 TO 4 12/02/19 53523-SXYZ SKIN LESIONS, 2 TO 4 02/10/20 45579-PAUV SKIN LESIONS, 2 TO 4 06/30/20 45505-UVTI SKIN LESIONS, 2 TO 4 03/31/20 65580-IEUL SKIN LESIONS, 2 TO 4 01/21/20 20 34949-UJZO SKIN LESIONS, 2 TO 4 08/27/19 20 45453-SKKA SKIN LESIONS, 2 TO 4 06/18/20 95316-JNSP SKIN LESIONS, 2 TO 4 03/19/20 01378-CJYE SKIN LESIONS, 2 TO 4 01/09/20 19 24056-Vjja. Subungual Hematoma 0 Next Appt Details Provider Name:Jimmy Torres , 04/29/2025 10:00:00 AM, [address] [place], [address], Insurance Providers Payer Name Payer Address Payer Phone Subscriber Number Group Number Insured Name Patient Relationship to Insured Coverage Start Date Coverage End Date Medicare National Govt Svcs Inc [address] [facility] [place] [address] [id number] Mark Jay Self - patient is the insured [facility] [address] [place] [address] [id number] Mark Jay Self - patient is the insured 7 Medical (General) History Medical History History ICD Code CAD (Cholesterol) Psoriasis Measles Mumps Chicken pox Joint implants/screws - knee and hip Surgical History Surgery Date(Month/Year) hip replacement 04/1994 knee replacement 04/1996
[2025-03-11 08:02] VITALS: BP 120/64; PULSE 81; O2SAT 98; BMI 26.2
--- NOTE | 2025-03-11 08:02 | A.OFFVIS_ITS ---
Vital Signs 03/11/25 08:02 Height 5 ft 7.5 in Weight 170 lb BMI 26.2 BP 120/64 Blood Pressure Location Lt brachial Position Sitting Pulse 81 Pulse Oximetry (%) 98 Oxygen Delivery Method Room Air Intake Visit Reasons: colo screening Intake Note: Patient new consult for 2nd pre Colonoscopy screning. Patient denies any GI issues. 1st Colonoscopy was 10 years ago with [facility]. 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 Referred by PCP for pre colonoscopy screening. Mark presents for a pre-colonoscopy screening. He has a previous history of a colonoscopy conducted at [facility] approximately ten years ago, though he does not recall the results. Currently, he experiences bowel movements every one to two days, typically once or twice without any constipation or diarrhea. He reports no blood in stools, abdominal pain, nausea, vomiting, or change in appetite. His weight has remained stable between the upper 160s and low 170s. He indicates a cessation of heartburn since quitting alcohol in 2007. There are no issues with swallowing. History of cardiac valve replacement with porcine valve in 2007. No ongoing cardiology follow-up. No reported complications related to the procedure. Patient denies: fever/chills, regurgitation or dysphasia. Social hx: -denies ETOH use since 2007, social use -denies recreational drug use -former smoker, cessation 2007 - family hx as below -denies personal hx of CA -tolerated anesthesia in the past without difficulty. COUNTS INCLUDE 234 BEDS AT THE [facility] Surgical History (Updated 03/11/25 @ 08:15 by Modesta Benson) History of left hip replacement Hx of left knee surgery History of heart or great vessel surgery Hx of colonoscopy Family History Mother No problems noted. Father No problems noted. Social History Housing: Apartment Alcohol intake: current Alcohol intake frequency: does not drink Patient Tobacco Use Status: Former Tobacco user service: No Current occupational status: retired Cognitive needs: No Hearing needs: No Vision needs: Yes (reading glasses) Review of Systems Const Reports as per HPI ENT Reports as per HPI Card Reports as per HPI Resp Reports as per HPI GI Reports as per [facility] Reports as per HPI Physical Exam Vital Signs: Last Vital Signs Pulse 81 03/11/25 08:02 BP 120/64 03/11/25 08:02 Pulse Ox 98 03/11/25 08:02 Oxygen Delivery Method Room Air 03/11/25 08:02 BMI result Body Mass Index 26.2 Const General: healthy appearing, no acute distress and well developed Nutritional Appearance: average body habitus Orientation/consciousness: patient oriented x3 HEENT Head: Yes normal to inspection, Yes normocephalic and Yes atraumatic Face and sinus: Yes normal facial exam Eyes General: appearance normal, both eyes and all related structures Neck Neck: Yes normal visual inspection Resp Effort & Inspection: normal respiratory effort, able to speak in complete sentences, no tracheal deviation and symmetric chest movement Auscultation: clear to auscultation bilaterally Cardio Jugular venous distension: no JVD Rate: regular rate Rhythm: regular rhythm Heart sounds: S1 normal heart sound present, S2 normal heart sound present, no gallops and no murmurs GI Inspection: Yes normal to inspection, No distended and Yes obesity Palpation (GI): Soft to palpation, not firm, nontender and No hepatosplenomegaly present Auscultation: normal bowel sounds Neuro General: patient oriented x3 Gait exam (Neuro): Normal gait present Psych Appearance: grossly normal Mental Status: mental status grossly normal Speech and movement: Normal speech and movement present Affect: normal affect Attitude: cooperative Thought process: Normal thought process present Thought content: Normal thought content present Insight: Good insight present (Psych) Judgement: Good judgement present (Psych) Assessment & Plan Assessment & Plan (1) Screening for colon cancer: Code(s): Z12.11 - Encounter for screening for malignant neoplasm of colon Category: Medical Plan: Due for routine colonoscopy screening. No alarm features. Medications: -prescriptions for laxative tablets and MiraLax sent to pharmacy; instructions for Gatorade purchase and clear liquid diet given. -understands ASA will need to be held days prior to procedure. Nurse to review med holds per protocol. Patient educated on scheduling process, procedure preparation, including avoiding certain foods and ensuring clear liquid intake Advised on necessity for ride post-procedure due to sedation. Plan Follow-up after colonoscopy if warranted or sooner as needed Time: I spent a total of 15 minutes on the date of encounter which includes: Preparing to see the patient (reviewed previous documentation, test results and medical history) Performing a medically appropriate exam and/or evaluation Ordering medications, tests, and procedures Documenting clinical information in the health record Medications: New bisacodyl Take four tablets once for 1 day per colonoscopy instructions 5 mg PO ONCE 4 tabs 0RF 1 day polyethylene glycol 3350 (Miralax) per colonoscopy prep instructions 238 grams PO ONCE 238 grams 0RF Coding Level of Care Code New Pt New Pt Level 2 (58826) Patient Type New Diagnoses Screening for colon cancer Z12.11
== END 2025-03-11 08:29 | disposition home or self-care (01) ==
LOC: HO.HGI 07:48
PROVIDERS: PCP Internal Medicine; Visit Provider Nurse Practitioner Family
DX: Z12.11 Encounter for screening for malignant neoplasm of colon (principal)
CPT/HCPCS: 99024

== ENCOUNTER → 2025-03-11 07:48 | Outpatient (BNVA) | payer MEDICARE, BC, SELFPAY | PROVIDERS: PCP Internal Medicine; Visit Provider Nurse Practitioner Family | DX: Z12.11 Encounter for screening for malignant neoplasm of colon (principal) | CPT/HCPCS: 99212 ==

== ENCOUNTER 2025-04-11 08:06 | Outpatient (AMB) | payer MEDICARE, BC, SELFPAY | END 2025-04-11 08:39 | disposition home or self-care (01) | LOC: HO.HMGAL 08:06 | PROVIDERS: PCP Internal Medicine; Visit Provider Registered Nurse Emergency | DX: J30.89 Other allergic rhinitis (principal) | CPT/HCPCS: 95117; 95165 ==

== ENCOUNTER 2025-04-20 08:06 | Outpatient (AMB) | payer MEDICARE, BC, SELFPAY ==
--- OUTSIDE RECORDS SUMMARY | 2025-04-20 08:27 | XMS_ITS | Patient Health Record ---
[facility] Address [address] [place] [address] Care Team Providers Care Clinical Laboratory Manager Name Role Phone Elicia Montiel Primary Care Provider Jimmy Santa Unavailable [phone] Allergies Allergen (clinical drug ingredient) Drug/Non Drug Allergy documented on EMR Reaction Allergy Type Onset Date Status amoxicillin Amoxicillin Unknown Drug Allergy Act eirca Cortisone Unknown Drug Allergy Active Substance with [...] Orally Once a day; Duration: 30 day(s) Not-Damain ing Immunizations Vaccine Route Administration Date Status [...] atherosclerosis of arteries of lower limbs (disorder) ([id number]) Atherosclerosis of [place] artery of both lower extremities, with unspecified [...] Ordered Date Performed Result Body Sit e 36343-GPBZZRQ NAIL, 6 OR MORE 04/27/2024 N/A 21348-Emmp Destruction, 1-04/27/2024 N/A 26696-KUKY SKIN LESIONS, OVER 04/27/2024 N/A 55903-KKONOXV SKIN/TISSUE 06/18/2024 N/A 18514- Debride <25 sq cm 07/06/2024 N/A 64352-SVWKSJI NAIL, 6 OR MORE 07/27/2024 N/A 15942-Osur Destruction, 1-07/27/2024 N/A 76833-GXCYUGC SKIN/TISSUE 07/27/2024 N/A 69132-RMYY SKIN LESIONS, OVER 4 07/27/2024 N/A 98797-LJAYBRF NAIL, 6 OR MORE 10/22/2024 N/A 82005-POCJTUD SKIN/TISSUE 10/22/2024 N/A 36152-MKQX SKIN LESIONS, OVER 4 10/22/2024 N/A 98537-DDYYSFG NAIL, 6 OR MORE 01/21/2025 N/A 87066-HOMP SKIN LESIONS, OVER 4 01/21/2025 N/A Encounters Encounter Location Date Provider Diagnosis [facility] [address] [place] [address] 04/27/2024 Jimmy Torres Atherosclerosis of tu[place] artery of both lower extremities, with unspecified presence of clinical manifestation I70.203 ; Plantar wart B07.0 ; Tinea unguium B35.1 ; Pain in right toe(s) M79.674 ; Pain in left toe(s) M79.675 and Right foot pain M79.[address] [address] 06/18/2024 Jimmy Brian Pain in left foot M79.672 ; Pain in left ankle and joints of left foot M25.572 ; Bursitis of left foot M77.52 ; 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 and Ischemic ulcer of left foot with fat layer exposed L97.[address] [address] 07/06/2024 Jimmy Brian Ischemic ulcer of le ft foot, limited to breakdown of skin L97.[address] [address] 07/27/2024 Jimmy Brian Atherosclerosis of [place] artery of both lower extremities, with unspecified presence of clinical manifestation I70.203 ; Plantar wart B07.0 ; Tinea unguium B35.1 ; Pain in right toe(s) M79.674 ; Pain in left toe(s) M79.675 ; Right foot pain M79.671 and Ischemic ulcer of left foot with fat layer exposed L97.[address] [address] 10/22/2024 Jimmy Brian Atherosclerosis of tu[place] artery of both lower extremities, with unspecified presence of clinical manifestation I70.203 ; Tinea unguium B35.1 ; Pain in right toe(s) M79.674 ; Pain in left toe(s) M79.675 and Ischemic ulcer of left foot with fat layer exposed L97.[address] [address] 01/21/2025 Jimmy Brian Atherosclerosis of [place] artery of both lower extremities, with unspecified presence of clinical manifestation I70.203 ; Tinea unguium B35.1 ; Pain in right toe(s) M79.674 ; Pain in left toe(s) M79.675 and Ischemic ulcer of left foot with fat layer exposed L97.522 [facility] [address] [address] 06/16/2024 Jimmy Brian [facility] [address] [address] 06/18/2024 Jimmy Brian [facility] [address] 07/27/2024 Jimmyfrancisco Torres [facility] [address] 07/27/2024 Jimmy Torres [facility] Encounter Date Diagnosis (ICD Code) Assessment Notes Treatment Notes Treatment Clinical Notes Section Notes 04/27/2024 Plantar wart (ICD-10 - B07.0) 04/27/2024 Atherosclerosis of tu[place] artery of both lower extremities, with unspecified [...] wart (ICD-10 - B07.0) 07/27/2024 Atherosclerosis of [place] artery of both lower extremities, with unspecified presence of clinical manifestation (ICD-10 - I70.203) 10/22/2024 Tinea unguium (ICD-10 - B35.1) 10/22/2024 Atherosclerosis of [place] artery of both lower extremities, with unspecified presence of clinical manifestation (ICD-10 - I70.203) 01/21/2025 Tinea unguium (ICD-10 - B35.1) 01/21/2025 Atherosclerosis of [place] artery of both lower extremities, with unspecified [...] X ray : Foot, left 3V 06/18/2024 63508-TYYEUQN NAIL, 6 OR MORE 07/27/2024 18554-HBIQKKW NAIL, 6 OR MORE 01/23/2024 74365-YUFTUXV NAIL, 6 OR MORE 04/27/2024 17485-YTESBGD NAIL, 6 OR MORE 10/22/2024 31379-TQGMCWH NAIL, 6 OR MORE 01/21/2025 34492-KKWCAFB NAIL, 6 OR MORE 01/08/2019 27514-YQIILUZ NAIL, 6 OR MORE 03/19/2019 84618-GQDGZOG NAIL, 6 OR MORE 06/18/2019 39758-NJDVAXA NAIL, 6 OR MORE 08/27/2019 55365-NZUYRJO NAIL, 6 OR MORE 11/12/2019 52794-KSJQZKI NAIL, 6 OR MORE 01/21/2020 05619-AIKIPWQ NAIL, 6 OR MORE 03/31/2020 07726-XIMXCMP NAIL, 6 OR MORE 06/30/2020 78778-PUVUDAC NAIL, 6 OR MORE 09/12/2020 17146-WDOHNGU NAIL, 6 OR MORE 12/01/2020 20715-GALDEDH NAIL, 6 OR MORE 02/09/2021 96283-PQIZKQB NAIL, 6 OR MORE 05/15/2021 57412-OOWLOOB NAIL, 6 OR MORE 11/20/2021 91130-GKXLDWG NAIL, 6 OR MORE 05/02/2022 26296-NQMNLTF NAIL, 6 OR MORE 10/21/2023 16156-Bgsk Destruction, 1-14 10/21/2023 99257-Xfmt Destruction, -14 05/02/2022 53791-Dstl Destruction, -14 11/20/2021 66631-Qndz Destruction, -14 05/15/2021 18588-Oxkr Destruction, -14 02/09/2021 02391-Covk Destruction, -14 12/01/2020 50088-Xvrd Destruction, 1-14 09/12/2020 68567-Kfff Destruction, -14 04/27/2024 60624-Tjvb Destruction, -14 01/23/2024 33367-Nerj Destruction, -14 07/27/2024 57030- Debride <25 sq cm 07/06/2024 69607-IOGTOQH SKIN/TISSUE 07/27/2024 39350-GZWJSYE SKIN/TISSUE 10/22/2024 85399-MSBQBWT SKIN/TISSUE 06/18/2024 46432-DVHP SKIN LESIONS, OVER 4 07/27/20 50884-NTZD SKIN LESIONS, OVER 4 01/23/20 79017-XNGP SKIN LESIONS, OVER 4 04/27/20 07729-EGYK SKIN LESIONS, OVER 4 10/23/19 25877-BNNO SKIN LESIONS, OVER 4 01/22/20 31747-BGSZ SKIN LESIONS, OVER 4 10/21/19 24 10827-ONUM SKIN LESIONS, 2 TO 4 05/02/20 38710-MVOD SKIN LESIONS, 2 TO 4 05/15/20 08252-VZXM SKIN LESIONS, 2 TO 4 11/21/19 54470-OWDH SKIN LESIONS, 2 TO 4 11/12/19 20 12910-CLMF SKIN LESIONS, 2 TO 4 09/12/19 83294-FGLK SKIN LESIONS, 2 TO 4 12/02/19 13683-YOMG SKIN LESIONS, 2 TO 4 02/10/20 97766-ILJU SKIN LESIONS, 2 TO 4 06/30/20 59663-IHFU SKIN LESIONS, 2 TO 4 03/31/20 85869-RCSX SKIN LESIONS, 2 TO 4 01/21/20 20 27966-IMRW SKIN LESIONS, 2 TO 4 08/27/19 20 51313-NIIT SKIN LESIONS, 2 TO 4 06/18/20 06352-HBYY SKIN LESIONS, 2 TO 4 03/19/20 98214-QOHQ SKIN LESIONS, 2 TO 4 01/09/20 19 29780-Dpem. Subungual Hematoma 0 Next Appt Details Provider Name:Jimmy Torres , 04/29/2025 10:00:00 AM, [address] [place], [address], Insurance Providers Payer Name Payer Address Payer Phone Subscriber Number Group Number Insured Name Patient Relationship to Insured Coverage Start Date Coverage End Date Medicare National [employer] [address] [facility] [place] [address] [id number] Mark Jay Self - patient is the insured [facility] [address] [place] [address] [id number] Mark Jay Self - patient is the insured 7 Medical (General) History Medical History History ICD Code CAD (Cholesterol) Psoriasis Measles Mumps Chicken pox Joint implants/screws - knee and hip Surgical History Surgery Date(Month/Year) hip replacement 04/1994 knee replacement 04/1996
== END 2025-04-20 08:53 | disposition home or self-care (01) ==
LOC: HO.HMGAL 08:06
PROVIDERS: PCP Internal Medicine; Visit Provider Registered Nurse Emergency
DX: J30.89 Other allergic rhinitis (principal)
CPT/HCPCS: 95117; 95165

== ENCOUNTER 2025-04-20 08:45 | Outpatient (AMB) | payer MEDICARE, BC, SELFPAY ==
--- NOTE | 2025-04-20 08:48 | MHC.PC.OV ---
Vital Signs 04/20/25 08:54 Height 5 ft 7.5 in Weight 176 lb BMI 27.2 BP 142/70 H Blood Pressure Location Lt brachial Position Sitting Respiration 17 Pulse 75 Pulse Source Pulse Oximeter Temp 97.4 F Temp Source Temporal Artery Scan Pulse Oximetry (%) 96 Oxygen Delivery Method Room Air Intake Visit Reasons: Medication f/u Thread Clipper Required: No Accompanied by: Self / Same As Patient Allergies Penicillins Allergy (Unknown, Verified 04/20/25 08:48) Unknown Tobacco use date assessed: 12/16/24 Fall risk assessment: No Falls in past year Dental Screening Dental Screen Date: 12/16/24 HPI HPI Comments History of Present Illness Details The patient is a 74-year-old male presenting with a request for the continuation of Zolpidem. He reports chronic insomnia managed with Zolpidem for approximately 15 to 20 years. The patient expressed dependency, asserting an inability to sleep without the medication and recounting an experience of minimal sleep for three days when Zolpidem tablets were inadvertently lost. He has attempted other non-specific sleep methods previously, but does not recall their names and did not find them effective. The patient also presents with a history of essential hypertension, as his blood pressure measured 140/70 mmHg during this visit. He denies being on current antihypertensive medication. The patient acknowledges a recent weight gain of approximately 10 pounds and reports increased salt intake. He has a history of heart valve replacement, which necessitates careful management of his blood pressure due to cardiovascular risk. Medical History: - Chronic insomnia, managed with Zolpidem for 15-20 years - Essential hypertension, currently not on antihypertensive medication - History of heart valve replacement Surgical History: - Heart valve replacement Medications: - Zolpidem 10 mg, nightly for insomnia PFSH Surgical History (Updated 03/11/25 @ 08:15 by Modesta Benson) History of left hip replacement Hx of left knee surgery History of heart or great vessel surgery Hx of colonoscopy Family History Mother No problems noted. Father No problems noted. Social History Housing: Apartment Alcohol intake: current Alcohol intake frequency: does not drink Patient Tobacco Use Status: Former Tobacco user e-Cigarette/Vaping Use: Never Used service: No Current occupational status: retired Cognitive needs: No Hearing needs: No Vision needs: Yes (reading glasses) Questionnaire Thrive Questionnaire Date Thrive assessed: 12/16/24 AUDIT C Alcohol Use Questionnaire (AUDIT-C) 1. How often do you have a drink containing alcohol?: Never 3. How often do you have six or more drinks on one occasion?: Never Total Score: 0 VERNELL-7 AMB Questionnaire VERNELL-7 Date VERNELL - 7 assessed: 12/16/24 Source: Developed by Drs. Conor Harry, Darcie Ashton, Isai Colon and colleagues, with an educational demetrio from [employer]. Review of Systems Const Details: - Cardiovascular: Denies chest pain, palpitations, or shortness of breath - Neurological: Denies headaches - Gastrointestinal: Denies nausea, vomiting, diarrhea - Genitourinary: Denies changes in urination - Sleep: Difficulty sleeping without Zolpidem All systems reviewed & are unremarkable except as noted in HPI and below Physical exam (Primary Care) Vital Signs: Last Vital Signs Temp 97.4 F 04/20/25 08:54 Pulse 75 04/20/25 08:54 Resp 17 04/20/25 08:54 BP 142/70 H 04/20/25 08:54 Pulse Ox 96 04/20/25 08:54 Oxygen Delivery Method Room Air 04/20/25 08:54 BMI result Body Mass Index 27.2 Tobacco/Smoking Status: Tobacco use Status Tobacco use date assessed 12/16/24 04/20/25 08:50 Patient Tobacco Use Status Former Tobacco user 04/20/25 08:50 e-Cigarette/Vaping Use Never Used 04/20/25 08:50 Thrive Assessment: Date of Thrive Assessment Date Thrive assessed 12/16/24 04/20/25 08:50 Const Other: General: Alert and oriented, Well nourished, No acute distress. Eye: Pupils are equal, round and reactive to light, Intact accommodation, Extraocular movements are intact, Normal conjunctiva, Vision unchanged. HENT: Normocephalic, Atraumatic, Tympanic membranes are clear, Normal hearing, Oral mucosa is moist, No pharyngeal erythema, Ear canals patent. Respiratory: Lungs CTA bilaterally, No wheeze, Respirations are non-labored. Cardiovascular: Regular rate, Regular rhythm, S1 auscultated, S2 auscultated, No murmur, Good pulses equal in all extremities, Normal peripheral perfusion, No edema. Gastrointestinal: Soft, Non-tender, Non-distended, Normal bowel sounds, No organomegaly. Musculoskeletal: Normal range of motion, Normal strength, No tenderness, No swelling, No deformity, Normal gait. Integumentary: Warm, Dry, Sho[place], Intact. Neurologic: Alert, Oriented, Normal sensory, Normal motor function, No focal defects, Cranial Nerves II-XII are grossly intact, Normal deep tendon reflexes. Psychiatric: Cooperative, Appropriate mood & affect, Normal judgment. Coding Level of Care Code Est Pt Level 4 (68191) Complex EM visit Add On G2211 Diagnoses Insomnia, unspecified type G47.00 Insomnia type: unspecified Assessment & Plan Assessment & Plan (1) Insomnia: Comment: - Identify dependence on Zolpidem due to prolonged use. - Taper doses over a 8-week schedule to prevent withdrawal symptoms. - Implement cognitive behavioral therapy for insomnia and use a sleep diary. - Recommend melatonin OTC for better sleep hygiene. Code(s): G47.00 - Insomnia, unspecified Category: Medical Qualifiers: Insomnia type: unspecified Qualified Code(s): G47.00 - Insomnia, unspecified Plan During our consultation, I discussed the need to taper the use of Zolpidem due to its long-term use and potential risks at his age. I explained the medication tapering schedule and emphasized the temporary nature of Zolpidem as an aid for insomnia. I highlighted the benefits of cognitive behavioral therapy for insomnia and recommended keeping a sleep diary. I suggested melatonin as a safer alternative. Regarding hypertension, I emphasized lifestyle changes including salt reduction and monitoring blood pressure at home. We will revisit his treatment plan in the next visit scheduled for May 26 to determine further management of his blood pressure. Medications: New zolpidem 7.5 mg PO DAILY 14 caps 0RF 2 weeks zolpidem 5 mg PO BEDTIME 14 tabs 0RF 2 weeks zolpidem Take 1/2 pill every day for 2 weeks, then half pill every other day for 2 weeks 2.5 mg (1/2 x 5 mg) PO Q OTHER DAY 11 tabs 0RF 4 weeks Discontinued zolpidem Discontinued Reason: None 10 mg PO BEDTIME 60 days 60 tabs 1RF G47.00 - Insomnia, unspecified Patient Instructions: - Gradually reduce Zolpidem use as per tapering schedule over next 8 weeks. - Try melatonin for sleep if necessary. - Implement sleep hygiene practices: limit caffeine intake after 2 PM, avoid screens before bed. - Monitor blood pressure at home and reduce salt intake. - Follow up on May 26 with home blood pressure records. - Contact our office sooner if you experience any shortness of breath, chest pain, or adverse changes in health.
[2025-04-20 08:54] VITALS: BP 142/70; PULSE 75; RESP 17; TEMP 36.3; O2SAT 96; BMI 27.2
== END 2025-04-20 09:14 | disposition home or self-care (01) ==
LOC: HO.HMCHD 08:46
PROVIDERS: PCP Student in an Organized Health Care Education/Training Program; Visit Provider Student in an Organized Health Care Education/Training Program
DX: G47.00 Insomnia, unspecified (principal)

== ENCOUNTER → 2025-04-20 08:45 | Outpatient (BNVA) | payer MEDICARE, BC, SELFPAY | PROVIDERS: PCP Internal Medicine; Visit Provider Student in an Organized Health Care Education/Training Program | DX: G47.00 Insomnia, unspecified (principal); I10 Essential (primary) hypertension; Z95.2 Presence of prosthetic heart valve; Z79.899 Other long term (current) drug therapy | CPT/HCPCS: 99212 ==

== ENCOUNTER 2025-04-25 08:02 | Outpatient (AMB) | payer MEDICARE, BC, SELFPAY | END 2025-04-25 08:06 | disposition home or self-care (01) | LOC: HO.HMGAL 08:02 | PROVIDERS: PCP Student in an Organized Health Care Education/Training Program; Visit Provider Registered Nurse Emergency | DX: J30.89 Other allergic rhinitis (principal) | CPT/HCPCS: 95117; 95165 ==

== ENCOUNTER 2025-05-02 08:17 | Outpatient (AMB) | payer MEDICARE, BC, SELFPAY ==
--- OUTSIDE RECORDS SUMMARY | 2025-04-29 06:00 | XMS_ITS ---
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 Medications Medication SIG (Take, Route, Frequency, Duration) Notes Start Date End Date Status Ammonium Lactate 12 % 1 application to affected area Externally to feet Twice a day; Duration: 30 days Not-Taking Lipitor 10 MG 1 tablet Orally Once a day; Duration: 30 day(s) Active Zolpidem Tartrate 7.5 MG 1 capsule at be dtime as needed Orally Once a day Active Social History Tobacco Use: Social History Observation [...] ast year? No Points 0 Interpretation Negative Vital Signs Height 5ft7.5in in 04/29/2025 Weight 165 lbs 04/29/2025 BMI 25.46 kg/m2 04/29/2025 Blood pressure systolic 127 mm Hg 04/29/20 25 Blood pressure diastolic 65 mm Hg 025 Procedures Procedure Date Ordered Date Performed Result Body Sit e 35362-ARFHKGT NAIL, 6 OR MORE 04/29/2025 N/A 26710-EVSS SKIN LESIONS, OVER 4 04/29/2025 N/A Encounters Encounter Location Date Provider Diagnosis [facility] [address] [address] 04/29/2025 Jimmyfrancisco Solerier Atherosclerosis of [place] artery of both lower extremities, with unspecified presence of clinical manifestation I70.203 ; Tinea unguium B35.1 ; Pain in right toe(s) M79.674 and Pain in left toe(s) M79.675 Assessments Encounter Date Diagnosis (ICD Code) Assessment Notes Treatment Notes Treatment Clinical Notes Section Notes 04/29/2025 Atherosclerosis of [place] artery of both lower extremities, with unspecified presence of clinical manifestation (ICD-10 - I70.203) 04/29/2025 Tinea unguium (ICD-10 - B35.1) 04/29/2025 Pain in right toe(s) (ICD-10 - M79.674) 04/29/2025 Pain in left toe(s) (ICD-10 - M79.675) Plan Of Treatment Pending Test Test Name Order Date 48749-BSQZQTD NAIL, 6 OR MORE 04/29/2025 02890-HDFD SKIN LESIONS, OVER 4 04/29/20 25 Next Appt Details Follow Up: prn, Reason: Provider Name:Jimmy Torres , 08/23/2025 11:00:00 AM, [address] [place] [address], [phone], Procedure Notes * Category Sub-Category Detail Notes [...] use of a nail nipper and/or dremel-type napper grinder, to a more viable healthy nail [...] to maintain effectiveness in symptomatic relief - 49127 Keratoma Treatment Parring or Cutting o f Benign Hyperkeratotic Lesion(s) (-57) More than 4 Lesions - Due to the at risk nature of the patients medical condition as documented in the exam findings, performance of this keratoderma treatment is medically necessary as its management by an unskilled/untrained nonprofessional would put this patients foot and overall health at risk. Therefore, the benign hyperkeratotic lesions, (5) in total, locations as stated and described in the exam ( Medial plantar, IPJ, TA, Medial plantar, IPJ, T5, SUB MTH (s), 5, Left, Plantar, Heel(s) , B/L ), were pared, and/or cut utilizing a sterile 15 blade, tissue nippers, and/or power dremel instrumentation by the physician of record - 62017, Q8 Progress Notes * Mark JAYDOB: [birth year] (74 yo M)Acc No.[id number]:04/29/2025 Progress Note Patient: Mark BUTTS Marty Provider: Victor Manuel Torres DPM :1950 A ge:74 Y S ex:Male Date:04/29/2025 Address:[address] [place], [place] [id number] Pcp:Elicia Montiel Subjective: * Chief Complaints: * A t Risk FootcarePainful Nail(s) aggravated by shoes and causing difficulty standing/walking. * HPI: A t Risk footcare: Pt States Last PCP Visit: D ate 0 04/13/2025 * ROS: G eneral/Constitutional: Nausea d enies. V omiting d enies. H renetta Thirst d enies. L oss appetite d enies. C hills d enies. F atigue d enies.?Fever d enies. N ight Sweats d enies. U nexplained weight loss d enies. U nexplained weight gain d enies. H EENTM: Dentures a dmits. D izziness d enies. G lasses/contacts d enies. R etinopathy d enies. B lurred/double vision d enies. T MJ?denies. D ischarge/drainage d enies. I mplants d enies. S ore throat d enies. D ental implants d enies. H jw of hearing d enies. D ifficulty chewing/swallowing/speaking d enies. N ose bleeds d enies. S ore mouth d enies. ? R espiratory: On Oxygen d enies. P neumonia/pleurisy d enies.?Bronchitis d enies. E mphysema d enies. C oughing d enies. C ough blood?denies. S hortness of breath d enies. W heezing d enies. C ardiovascular: Pacemaker d enies. M ASSISTANT DEAN OF STUDENTS d enies. W PW d enies. C HF d enies. H eart attack d enies. S eptal defect d enies. R apid beat d enies. C hest pain d enies. A trial Fib. d enies. M urmur/Palpitations d enies. G astrointestinal: Hemorrhoids d enies. S tomach/Abdominal pain d enies. D ark blood stool d enies. I rritable bowel d enies. C onstipation d enies. D iarrhea d enies. H ematology: Swelling d enies. C lots d enies. V aricose Veins a dmits. B ruising d enies. B leeding problem d enies. G enitourinary: Blood urine d enies. F requent/Painfu/urination/bladder control d enies. K idney stones d enies. I nfection (UTI) d enies. N ephropathy d enies. s ex trans dis (STD) d enies. P rostate d enies. M cusantoseletal: Hammertoes a dmits. B unions d enies. B ack Pain d enies. M uscle Cramps/ Resting d enies. M uscle cramps / walking d enies.?Generalized aches and pains d enies. W eakness d enies. I nteg.: Thurman d enies. S cars d enies. C orns/calluses?admits. I ngrown nails a dmits. P ainful nails a dmits. O pen Sores a dmits. R ashes d enies. N eurologic: Difficulty sleeping a dmits. B rain disorder d enies. N umbness d enies. B alance trouble d enies. C onfusion d enies. F ainting/blackouts d enies. T ingling d enies. T remors d enies. * Medical History: * Surgical History: h ip replacement 04/1994knee replacement 04/1996 * Hospitalization/Major Diagno stic Procedure: D enies Past Hospitalization * Family History: M other: , cancer. F ather: , stroke. * Social History: T obacco Use: T obacco use other than smoking A re you an other tobacco user? N o Tobacco Control (Standard) T obacco use: N onsmoker M iscellaneous: C affeine: yes, Soda. Children: no, none. Exercise: yes, walking. Marital status: single. 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 D rug/Alcohol: A NERY-C (Standard) D id you have a drink containing alcohol in the past year? N o P oints 0 I nterpretation N egative * Medications: T akingLipitor 10 MG Tablet 1 tablet Orally Once a day Zolpidem Tartrate 7.5 MG Capsule 1 capsule at bedtime as needed Orally Once a day Taking Lipitor 10 MG Tablet 1 tablet Orally Once a day Taking Zolpidem Tartrate 7.5 MG Capsule 1 capsule at bedtime as needed Orally Once a day Not-Taking/PRNAmmonium Lactate 12 % Cream 1 application to affected area Externally to feet Twice a day Medication List reviewed and reconciled with the patientNot-Taking/PRN Ammonium Lactate 12 % Cream 1 application to affected area Externally to feet Twice a day Medication List reviewed and reconciled with the patient * Allergies: A moxicillinCortisonePenicillinsyes[Allergies Verified] Objective: * Vitals: H t: 5ft7.5in, Wt:165, BMI:25.46, Shoe size: 8, BP:127/65mm Hg, Ht-cm: 171.45 cm, Wt-k.84 kg. * Examination: V ascular: DP PULSES (B): 0 /4, RIGHT, 1/4, LEFT. PT PULSES (B): 0/4, B/L. CAPILLARY FILL TIME: delayed, all digits, B/L. TROPHIC CONDITION-TEXTURE/ELASTICITY/TURGOR/HAIR GROWTH (B):? decreased, w ith sparse to absent hair growth, B/L. TEMPERTURE GRADIENT (C): decreased, cool to cool, proximal to distal, B/L. PIGMENTATION: mottled, B/L. EDEMA (C): 1/4, non-pitting, without aching pain, B/L, Ankle(s). CLAUDICATION (C): d enies, B/L. REST PAIN: d enies, B/L. VARICOSITIES: present, moderate, nonpainful, B/L. ? N ails: NAILS are: E longated, overgrown, dystrophic, lytic, greater than 3mm thick, discolored and friable with crumbly malodorous subungual debris, with pain on palpation,TA,T1,T2,T4,T5,T6,T7,T9, all other nails not described with characteristics as possessing mycosis are elongated, overgrown, and dystrophic. D ermatologic: SKIN FINDINGS: S kin exam reveals Keratotic lesion(s) located at, Medial plantar, IPJ, TA, Medial plantar, IPJ, T5, SUB MTH (s), 5, Left, Plantar, Heel(s) , B/L. Assessment: * Assessment: 1. T inea unguium - B35.1 2 . A therosclerosis of [place] artery of both lower extremities, with unspecified presence of clinical manifestation - I70.203 (Primary) ?Specify :Q8 3 . P ain in right toe(s) - M79.674 4 . P ain in left toe(s) - M79.675 Plan: * Treatment: 2. T inea unguium P rocedure: 90647-LZHDMAP NAIL, 6 OR MORE * Procedures: D ebride Nail 6-10: Nail debridement D ue to the clinical pathology outlined in the exam findings, performance of this nail treatment is medically necessary as its management by an unskilled/untrained nonprofessional would put this patients foot and overall health at risk. Therefore, debridement to affected nail(s), as described in exam ( T A,T1,T2,T4,T5,T6,T7,T9 ) , was performed exclusively by the physician of record to reduce/remove overall nail length, girth, thickness, subungual debris, and necrotic tissue, by manual and/or electrical means through the use of a nail nipper and/or dremel-type napper grinder, to a more viable healthy nail [...] to maintain effectiveness in symptomatic relief - 40250. K eratoma Treatment: Parring or Cutting of Benign Hyperkeratotic Lesion(s) ( -57) More than 4 Lesions - Due to the at risk nature of the patients medical condition as documented in the exam findings, performance of this keratoderma treatment is medically necessary as its management by an unskilled/untrained nonprofessional would put this patients foot and overall health at risk. Therefore, the benign hyperkeratotic lesions, (5) in total, locations as stated and described in the exam ( M edial plantar, I PJ, T A, M edial plantar, I PJ, T 5, S UB MTH (s), 5 , L eft, P lantar, H eel(s) , B /L ) , were pared, and/or cut utilizing a sterile 15 blade, tissue nippers, and/or power dremel instrumentation by the physician of record - 59757, Q8. * Procedure Codes: 1 1721 DEBRIDE NAIL, 6 OR MORE, Modifiers: XS 69064 TRIM SKIN LESIONS, OVER 4, Modifiers: XS , Q8 * Follow Up: p rn * Images: * Sign off status: Completed true * Provider: Victor Manuel Torres DPM Date: 04/29/2025 Generated for Sal weinstein/Bárbara/Shilo on: 0 05/02/2025 09:10 AM EDT History and Physical Notes * HPI (History of Present Illness) Category Sub-Category Detail Notes Category Not es At Risk footcare Pt States Last PCP Visit: Date: 5 Examination Category Sub-Category Detail Notes Category Not es Dermatologic SKIN FINDINGS: Skin exam reveal s Keratotic lesion(s) located at, Medial plantar, IPJ, TA, Medial plantar, IPJ, T5, SUB MTH (s), 5, Left, Plantar, Heel(s) , B/L Vascular DP PULSES (B): 0/4, RIGHT, 1/4, [...]
--- OUTSIDE RECORDS SUMMARY | 2025-05-02 09:10 | XMS_ITS | Patient Health Record ---
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 Name Role Phone Elicia Montiel Primary Care Provider Jimmy Santa Unavailable [phone] Allergies Allergen (clinical drug ingredient) Drug/Non Drug [...] as needed Orally Once a day Active Immunizations Vaccine Route Administration Date Status Comme [...] atherosclerosis of arteries of lower limbs (disorder) ([id number] ) Atherosclerosis of [place] artery of both lower extremities, with unspecified presence of clinical manifestation (I70.203) Active confirmed Vital Signs Blood pressure diastolic 65 mm Hg 04/29/2025 Height 5ft7.5in in 04/29/2025 Blood pressure systolic 127 mm Hg 04/29/2025 Weight 165 lbs 04/29/2025 BMI 25.46 kg/m2 04/29/2025 Procedures Procedure Date Ordered Date Performed Result Body Sit e 79171-ZBPKLOV SKIN/TISSUE 06/18/2024 N/A 55768- Debride <25 sq cm 07/06/2024 N/A 69360-GBLFTOR NAIL, 6 OR MORE 07/27/2024 N/A 05276-Eoow Destruction, 1-14 07/27/2024 N/A 01446-OKGJZTF SKIN/TISSUE 07/27/2024 N/A 71603-QFHQ SKIN LESIONS, OVER 4 07/27/2024 N/A 05059-PSXSWOH NAIL, 6 OR MORE 10/22/2024 N/A 87967-LKUPUVB SKIN/TISSUE 10/22/2024 N/A 99668-OJSP SKIN LESIONS, OVER 4 10/22/2024 N/A 85439-ZSGAWRQ NAIL, 6 OR MORE 01/21/2025 N/A 55600-SPIO SKIN LESIONS, OVER 4 01/21/2025 N/A 55789-CXXSPLY NAIL, 6 OR MORE 04/29/2025 N/A 45723-YKWI SKIN LESIONS, OVER 4 04/29/2025 N/A Encounters Encounter Location Date [facility] [address] 06/18/2024 Jimmy Brian Pain in left foot M79.672 ; Pain in left ankle and joints of left foot M25.572 ; Bursitis of left foot M77.52 ; 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 and Ischemic ulcer of left foot with fat layer exposed L97.[address] [address] 07/06/2024 Jimmy Brian Ischemic ulcer of le ft foot, limited to breakdown of skin L97.[address] [address] 07/27/2024 Jimmy Brian Atherosclerosis of [place] artery of both lower extremities, with unspecified presence of clinical manifestation I70.203 ; Plantar wart B07.0 ; Tinea unguium B35.1 ; Pain in right toe(s) M79.674 ; Pain in left toe(s) M79.675 ; Right foot pain M79.671 and Ischemic ulcer of left foot with fat layer exposed L97.[address] [address] 10/22/2024 Jimmy Brian Atherosclerosis of [place] artery of both lower extremities, with unspecified presence of clinical manifestation I70.203 ; Tinea unguium B35.1 ; Pain in right toe(s) M79.674 ; Pain in left toe(s) M79.675 and Ischemic ulcer of left foot with fat layer exposed L97.[address] [address] 01/21/2025 Jimmy Brian Atherosclerosis of [place] artery of both lower extremities, with unspecified presence of clinical manifestation I70.203 ; Tinea unguium B35.1 ; Pain in right toe(s) M79.674 ; Pain in left toe(s) M79.675 and Ischemic ulcer of left foot with fat layer exposed L97.[address] [address] 04/29/2025 Jimmy Brian Atherosclerosis of [place] artery of both lower extremities, with unspecified presence of clinical manifestation I70.203 ; Tinea unguium B35.1 ; Pain in right toe(s) M79.674 and Pain in left toe(s) M79.[address] [address] 06/16/2024 Jimmy Torres [address] [address] 06/18/2024 Jimmy Torres [address] [address] 07/27/2024 Jimmy Torres [facility] [place] [address] [place] [address] 07/27/2024 Jimmy Torres Assessments Encounter Date Diagnosis (ICD Code) Assessment Notes Treatment Notes Treatment Clinical Notes Section Notes 06/18/2024 Pain in left ankle and joints of left foot (ICD-10 - M25.572) 06/18/2024 Pain in left foot (ICD-10 - M79.672) 07/06/2024 Ischemic ulcer of left foot, limited to breakdown of skin (ICD-10 - L97.521) Response to treatment Improvement Patient Educated with: WOUND CARE INSTRUCTIONS. pdf (WOUND CARE INSTRUCTIONS. pdf) 07/27/2024 Plantar wart (ICD-10 - B07.0) 07/27/2024 Atherosclerosis of [place] artery of both lower extremities, with unspecified presence of clinical manifestation (ICD-10 - I70.203) 10/22/2024 Tinea unguium (ICD-10 - B35.1) 10/22/2024 Atherosclerosis of [place] artery of both lower extremities, with unspecified presence of clinical manifestation (ICD-10 - I70.203) 01/21/2025 Tinea unguium (ICD-10 - B35.1) 01/21/2025 Atherosclerosis of [place] artery of both lower extremities, with unspecified presence of clinical manifestation (ICD-10 - I70.203) 04/29/2025 Tinea unguium (ICD-10 - B35.1) 04/29/2025 Atherosclerosis of [place] artery of both lower extremities, with unspecified presence of clinical manifestation (ICD-10 - I70.203) 01/21/2025 Pain in right toe(s) (ICD-10 - M79.674) 04/29/2025 Pain in right toe(s) (ICD-10 - M79.674) 10/22/2024 Pain in right toe(s) (ICD-10 - M79.674) 06/18/2024 Bursitis of left foot (ICD-10 - M77.52) 07/27/2024 Tinea unguium (ICD-10 - B35.1) 06/18/2024 Tailor's bunion of left foot (ICD-10 - M21.622) 07/27/2024 Pain in right toe(s) (ICD-10 - M79.674) 10/22/2024 Pain in left toe(s) (ICD-10 - M79.675) 01/21/2025 Pain in left toe(s) (ICD-10 - M79.675) 04/29/2025 Pain in left toe(s) (ICD-10 - M79.675) 01/21/2025 Ischemic ulcer of left foot with fat layer exposed (ICD-10 - L97.522) 10/22/2024 Ischemic ulcer of left foot with fat layer exposed (ICD-10 - L97.522) Response to treatment Improving Unresolved Patient Educated with: WOUND CARE INSTRUCTIONS. pdf (WOUND CARE INSTRUCTIONS. pdf) 06/18/2024 Ischemic ulcer of left foot with [...] X ray : Foot, left 3V 06/18/2024 40799-ZJRBFBG NAIL, 6 OR MORE 04/29/2025 84654-CCXZWBB NAIL, 6 OR MORE 10/22/2024 92209-THKOCFQ NAIL, 6 OR MORE 01/21/2025 71510-IIRSJAM NAIL, 6 OR MORE 03/31/2020 24689-LGOHECH NAIL, 6 OR MORE 11/12/2019 74382-QPPBXBR NAIL, 6 OR MORE 08/27/2019 79173-ZACZFXP NAIL, 6 OR MORE 01/08/2019 81435-BGWCHLW NAIL, 6 OR MORE 03/19/2019 94339-UMTZURJ NAIL, 6 OR MORE 06/18/2019 00668-MBICRHB NAIL, 6 OR MORE 01/21/2020 33881-JUCXZFV NAIL, 6 OR MORE 06/30/2020 76349-NJUFEHY NAIL, 6 OR MORE 09/12/2020 12924-IOVVWCQ NAIL, 6 OR MORE 12/01/2020 38070-XHNUKBB NAIL, 6 OR MORE 02/09/2021 95531-XQJACAN NAIL, 6 OR MORE 05/15/2021 84391-XXPFTPF NAIL, 6 OR MORE 11/20/2021 90550-WOTTGGY NAIL, 6 OR MORE 05/02/2022 82286-KCXCKSW NAIL, 6 OR MORE 10/21/2023 48761-WFZIWCW NAIL, 6 OR MORE 01/23/2024 37256-ZXZCLKI NAIL, 6 OR MORE 04/27/2024 26699-ZCRYRNZ NAIL, 6 OR MORE 07/27/2024 63163-Uxsa Destruction, 1-14 07/27/2024 67934-Txoh Destruction, 1-14 09/12/2020 02938-Ynxn Destruction, 1-14 04/27/2024 29596-Qdox Destruction, 1-14 01/23/2024 00914-Avrq Destruction, 1-14 10/21/2023 97103-Lslf Destruction, 1-14 05/02/2022 10955-Cflu Destruction, 1-14 11/20/2021 42637-Tkwq Destruction, 1-14 05/15/2021 27397-Zqob Destruction, 1-14 02/09/2021 72419-Zwji Destruction, 1-14 12/01/2020 26939- Debride <25 sq cm 07/06/2024 74006-JLCWUJR SKIN/TISSUE 07/27/2024 98500-SODDLZQ SKIN/TISSUE 10/22/2024 92964-LORBFMW SKIN/TISSUE 06/18/2024 52791-BAGP SKIN LESIONS, OVER 4 04/29/20 84386-IQRR SKIN LESIONS, OVER 4 10/23/19 78933-LRWD SKIN LESIONS, OVER 4 01/22/20 35750-IFIR SKIN LESIONS, OVER 4 07/27/20 24 84198-KDEZ SKIN LESIONS, OVER 4 01/23/20 24 12888-JQQW SKIN LESIONS, OVER 4 04/27/20 24 97494-GQCQ SKIN LESIONS, OVER 4 10/21/19 24 32849-ALIQ SKIN LESIONS, 2 TO 4 05/02/20 88008-QKXP SKIN LESIONS, 2 TO 4 05/15/20 60319-JVMC SKIN LESIONS, 2 TO 4 11/21/19 12388-EVNV SKIN LESIONS, 2 TO 4 12/02/19 91347-CFMK SKIN LESIONS, 2 TO 4 02/10/20 21 27195-YNYU SKIN LESIONS, 2 TO 4 09/12/19 24177-XTKO SKIN LESIONS, 2 TO 4 06/30/20 88098-WZTW SKIN LESIONS, 2 TO 4 01/21/20 34253-DOTA SKIN LESIONS, 2 TO 4 06/18/20 83315-GZIF SKIN LESIONS, 2 TO 4 03/19/20 25139-FDXI SKIN LESIONS, 2 TO 4 01/09/20 02434-XXLR SKIN LESIONS, 2 TO 4 11/12/19 20 45915-SCPZ SKIN LESIONS, 2 TO 4 08/27/19 46870-TOEF SKIN LESIONS, 2 TO 4 03/31/20 20 96501-Gtvp. Subungual Hematoma 0 Next Appt Details Provider Name:Jimmy Torres , 08/23/2025 11:00:00 AM, [address] [place] [address], [phone], Insurance Providers Payer Name Payer Address Payer Phone Subscriber Number Group Number Insured Name Patient Relationship to Insured Coverage Start Date Coverage End Date Medicare National [employer] [address] [place] [address] [id number] Mark Jay Self - patient is the insured [facility] [address] [place] [address] [id number] Mark Jay Self - patient is the insured 7 Medical (General) History Medical History History ICD Code CAD (Cholesterol) Psoriasis Measles Mumps Chicken pox Joint implants/screws - knee and hip Surgical History Surgery Date(Month/Year) hip replacement 04/1994 knee replacement 04/1996
== END 2025-05-02 08:32 | disposition home or self-care (01) ==
LOC: HO.HMGAL 08:17
PROVIDERS: PCP Student in an Organized Health Care Education/Training Program; Visit Provider Registered Nurse Emergency
DX: J30.89 Other allergic rhinitis (principal)
CPT/HCPCS: 95117; 95165

== ENCOUNTER 2025-05-09 08:17 | Outpatient (AMB) | payer MEDICARE, BC, SELFPAY ==
--- OUTSIDE RECORDS SUMMARY | 2025-05-09 09:25 | XMS_ITS | Patient Health Record ---
Author Organization [facility] Address [address] [place] [address] Care Team Providers Care Grant Coordinator Name Role Phone Elicia Montiel Primary Care Provider Jimmy Santa Unavailable [phone] Allergies Allergen (clinical drug ingredient) Drug/Non Drug [...] atherosclerosis of arteries of lower limbs (disorder) ([id number] ) Atherosclerosis of [place] artery of both lower extremities, with unspecified presence of clinical manifestation (I70.203) Active confirmed Vital Signs Blood pressure diastolic 65 mm Hg 04/29/2025 Height 5ft7.5in in 04/29/2025 Blood pressure systolic 127 mm Hg 04/29/2025 Weight 165 lbs 04/29/2025 BMI 25.46 kg/m2 04/29/2025 Procedures Procedure Date Ordered Date Performed Result Body Sit e 42257-CLLSPQH SKIN/TISSUE 06/18/2024 N/A 88642- Debride <25 sq cm 07/06/2024 N/A 22089-YPORLVL NAIL, 6 OR MORE 07/27/2024 N/A 41212-Kbkt Destruction, 1-14 07/27/2024 N/A 07434-XTOKOQL SKIN/TISSUE 07/27/2024 N/A 45207-SKJM SKIN LESIONS, OVER 4 07/27/2024 N/A 15801-YNWEIRC NAIL, 6 OR MORE 10/22/2024 N/A 67733-ENMOEMS SKIN/TISSUE 10/22/2024 N/A 76824-FYQR SKIN LESIONS, OVER 4 10/22/2024 N/A 50309-RSGPJJD NAIL, 6 OR MORE 01/21/2025 N/A 93530-ZEPP SKIN LESIONS, OVER 4 01/21/2025 N/A 03864-BZNPEFZ NAIL, 6 OR MORE 04/29/2025 N/A 63131-AJTW SKIN LESIONS, OVER 4 04/29/2025 N/A Encounters Encounter Location Date 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 and Ischemic ulcer of left foot with fat layer exposed L97.[address] [address] 07/06/2024 Jimmy Brian Ischemic ulcer of le ft foot, limited to breakdown of skin L97.[address] [address] 07/27/2024 Jimmy Brian Atherosclerosis of [place] artery of both lower extremities, with unspecified presence of clinical manifestation I70.203 ; Plantar wart B07.0 ; Tinea unguium B35.1 ; Pain in right toe(s) M79.674 ; Pain in left toe(s) M79.675 ; Right foot pain M79.671 and Ischemic ulcer of left foot with fat layer exposed L97.[address] [address] 10/22/2024 Jimmy Brian Atherosclerosis of [place] artery of both lower extremities, with unspecified presence of clinical manifestation I70.203 ; Tinea unguium B35.1 ; Pain in right toe(s) M79.674 ; Pain in left toe(s) M79.675 and Ischemic ulcer of left foot with fat layer exposed L97.[address] [address] 01/21/2025 Jimmy Brian Atherosclerosis of [place] artery of both lower extremities, with unspecified presence of clinical manifestation I70.203 ; Tinea unguium B35.1 ; Pain in right toe(s) M79.674 ; Pain in left toe(s) M79.675 and Ischemic ulcer of left foot with fat layer exposed L97.[address] [address] 04/29/2025 Jimmy Brian Atherosclerosis of [place] artery of both lower extremities, with unspecified presence of clinical manifestation I70.203 ; Tinea unguium B35.1 ; Pain in right toe(s) M79.674 and Pain in left toe(s) M79.[address] [address] 06/16/2024 Jimmy Torres [address] [address] 06/18/2024 Jimmy Torres [address] [address] 07/27/2024 Jimmy Torres [facility] [address] [place] [address] 07/27/2024 Jimmy Torres Assessments Encounter Date Diagnosis [...] wart (ICD-10 - B07.0) 07/27/2024 Atherosclerosis of [place] artery of both lower extremities, with unspecified presence of clinical manifestation (ICD-10 - I70.203) 10/22/2024 Tinea unguium (ICD-10 - B35.1) 10/22/2024 Atherosclerosis of [place] artery of both lower extremities, with unspecified presence of clinical manifestation (ICD-10 - I70.203) 01/21/2025 Tinea unguium (ICD-10 - B35.1) 01/21/2025 Atherosclerosis of [place] artery of both lower extremities, with unspecified presence of clinical manifestation (ICD-10 - I70.203) 04/29/2025 Tinea unguium (ICD-10 - B35.1) 04/29/2025 Atherosclerosis of [place] artery of both lower extremities, with unspecified presence of clinical manifestation (ICD-10 - I70.203) 04/29/2025 Pain in right toe(s) (ICD-10 - M79.674) 10/22/2024 Pain in right toe(s) (ICD-10 - M79.674) 01/21/2025 Pain in right toe(s) (ICD-10 - M79.674) 07/27/2024 Tinea unguium (ICD-10 - B35.1) 06/18/2024 Bursitis of left foot (ICD-10 - M77.52) 06/18/2024 Tailor's bunion of left foot (ICD-10 [...] INSTRUCTIONS. pdf (WOUND CARE INSTRUCTIONS. pdf) 07/27/2024 Right foot pain (ICD-10 - M79.671) 07/27/2024 Ischemic ulcer of left foot with fat layer exposed (ICD-10 - L97.522) Response to treatment Worse Patient Educated with: WOUND CARE INSTRUCTIONS. pdf (WOUND CARE INSTRUCTIONS. pdf) Plan Of Treatment Pending Test Test Name Order Date X ray : Foot, left 3V 06/18/2024 66141-DZNGHPU NAIL, 6 OR MORE 07/27/2024 81974-LZZBYOX NAIL, 6 OR MORE 01/23/2024 27474-GOSFXZE NAIL, 6 OR MORE 04/27/2024 58765-FMGWZLH NAIL, 6 OR MORE 10/22/2024 39114-VNFSJAZ NAIL, 6 OR MORE 01/21/2025 60253-FEENNVR NAIL, 6 OR MORE 04/29/2025 06415-GJWBZLF NAIL, 6 OR MORE 01/08/2019 06924-DFKPUUS NAIL, 6 OR MORE 03/19/2019 69537-XIPSJIJ NAIL, 6 OR MORE 06/18/2019 58159-PQSKVZM NAIL, 6 OR MORE 08/27/2019 71958-LQJTKPD NAIL, 6 OR MORE 11/12/2019 47959-VJTAFGL NAIL, 6 OR MORE 01/21/2020 46710-DPNTYGI NAIL, 6 OR MORE 03/31/2020 64897-SPRXYPW NAIL, 6 OR MORE 06/30/2020 45686-BYRCQIH NAIL, 6 OR MORE 09/12/2020 16217-LGIRUZZ NAIL, 6 OR MORE 12/01/2020 33599-CPLSZGP NAIL, 6 OR MORE 02/09/2021 99082-EANJYVS NAIL, 6 OR MORE 05/15/2021 78201-HYNSNXI NAIL, 6 OR MORE 11/20/2021 52834-AOULHGE NAIL, 6 OR MORE 05/02/2022 33366-TQBMPCB NAIL, 6 OR MORE 10/21/2023 03851-Ckxb Destruction, 1-14 10/21/2023 97039-Chif Destruction, 1-14 05/02/2022 39996-Gntl Destruction, 1-14 11/20/2021 46402-Opun Destruction, 1-14 05/15/2021 85674-Tuux Destruction, 1-14 02/09/2021 84227-Hmks Destruction, 1-14 12/01/2020 84768-Ekek Destruction, 1-14 09/12/2020 94935-Eryo Destruction, 1-14 04/27/2024 22389-Rguz Destruction, 1-14 01/23/2024 32475-Ilyx Destruction, 1-14 07/27/2024 66426- Debride <25 sq cm 07/06/2024 45900-PYOVVUK SKIN/TISSUE 07/27/2024 68855-AQXPIFE SKIN/TISSUE 10/22/2024 53856-QKDWCKT SKIN/TISSUE 06/18/2024 25878-JKJH SKIN LESIONS, OVER 4 07/27/20 81434-DYAF SKIN LESIONS, OVER 4 01/23/20 24 49060-NNLW SKIN LESIONS, OVER 4 04/27/20 24 10752-NFLU SKIN LESIONS, OVER 4 10/23/19 57411-YDTL SKIN LESIONS, OVER 4 04/29/20 49166-CNXI SKIN LESIONS, OVER 4 01/22/20 87654-LRYQ SKIN LESIONS, OVER 4 10/21/19 24 09328-SEMG SKIN LESIONS, 2 TO 4 05/02/20 20846-SJEQ SKIN LESIONS, 2 TO 4 05/15/20 35426-UHWN SKIN LESIONS, 2 TO 4 11/21/19 58405-LSTE SKIN LESIONS, 2 TO 4 11/12/19 20 01417-LXDB SKIN LESIONS, 2 TO 4 09/12/19 61669-ULWM SKIN LESIONS, 2 TO 4 12/02/19 72898-VCWR SKIN LESIONS, 2 TO 4 02/10/20 20403-PMVZ SKIN LESIONS, 2 TO 4 06/30/20 82498-BXTX SKIN LESIONS, 2 TO 4 03/31/20 47011-HMIV SKIN LESIONS, 2 TO 4 01/21/20 22940-IGUL SKIN LESIONS, 2 TO 4 08/27/19 68894-OJOA SKIN LESIONS, 2 TO 4 06/18/20 66715-LTCS SKIN LESIONS, 2 TO 4 03/19/20 46547-ENHL SKIN LESIONS, 2 TO 4 01/09/20 75646-Yxgg. Subungual Hematoma 0 Next Appt Details Provider Name:Jimmy Torres , 08/23/2025 11:00:00 AM, [address] [place] [address], [phone], Insurance Providers Payer Name Payer Address Payer Phone Subscriber Number Group Number Insured Name Patient Relationship to Insured Coverage Start Date Coverage End Date Medicare National Govt Sv[employer] Inc [address] [place] [address] [id number] Mark Jay Self - patient is the insured [facility] [address] [place] [address] [id number] Mark Jay Self - patient is the insured 7 Medical (General) History Medical History History ICD Code CAD (Cholesterol) Psoriasis Measles Mumps Chicken pox Joint implants/screws - knee and hip Surgical History Surgery Date(Month/Year) hip replacement 04/1994 knee replacement 04/1996
== END 2025-05-09 08:22 | disposition home or self-care (01) ==
LOC: HO.HMGAL 08:17
PROVIDERS: PCP Student in an Organized Health Care Education/Training Program; Visit Provider Registered Nurse Emergency
DX: J30.89 Other allergic rhinitis (principal)
CPT/HCPCS: 95117; 95165

== ENCOUNTER 2025-05-23 08:22 | Outpatient (AMB) | payer MEDICARE, BC, SELFPAY ==
--- OUTSIDE RECORDS SUMMARY | 2025-05-23 08:46 | XMS_ITS | Patient Health Record ---
Author Organization [facility] Address [address] [place] [address] Care Team Providers Care Renovation Plant Supervisor Name Role Phone Elicia Montiel Primary Care Provider Jimmy Santa Unavailable [phone] Allergies Allergen (clinical drug ingredient) Drug/Non Drug [...] atherosclerosis of arteries of lower limbs (disorder) ([id number] ) Atherosclerosis of [place] artery of both lower extremities, with unspecified presence of clinical manifestation (I70.203) Active confirmed Vital Signs Blood pressure diastolic 65 mm Hg 04/29/2025 Height 5ft7.5in in 04/29/2025 Blood pressure systolic 127 mm Hg 04/29/2025 Weight 165 lbs 04/29/2025 BMI 25.46 kg/m2 04/29/2025 Procedures Procedure Date Ordered Date Performed Result Body Sit e 59287-QQTOTRN SKIN/TISSUE 06/18/2024 N/A 14393- Debride <25 sq cm 07/06/2024 N/A 01636-JEONKUO NAIL, 6 OR MORE 07/27/2024 N/A 47806-Sqha Destruction, 1-14 07/27/2024 N/A 79984-TUCULGT SKIN/TISSUE 07/27/2024 N/A 03269-USZV SKIN LESIONS, OVER 4 07/27/2024 N/A 55183-ABULCVE NAIL, 6 OR MORE 10/22/2024 N/A 50124-VQOAOWC SKIN/TISSUE 10/22/2024 N/A 69632-NEOK SKIN LESIONS, OVER 4 10/22/2024 N/A 52042-IVMNDCG NAIL, 6 OR MORE 01/21/2025 N/A 88276-DSDO SKIN LESIONS, OVER 4 01/21/2025 N/A 12984-WIZSKLZ NAIL, 6 OR MORE 04/29/2025 N/A 43434-BEBW SKIN LESIONS, OVER 4 04/29/2025 N/A Encounters Encounter Location Date [facility] [address] 06/18/[facility]24 Jimmy Brian Pain in left foot M79.672 ; Pain in left ankle and joints of left foot M25.572 ; Bursitis of left foot M77.52 ; 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 and Ischemic ulcer of left foot with fat layer exposed L97.[address] [address] 07/06/2024 Jimmy Brian Ischemic ulcer of le ft foot, limited to breakdown of skin L97.[address] [address] 07/27/2024 Jimmy Brian Atherosclerosis of [place] artery of both lower extremities, with unspecified presence of clinical manifestation I70.203 ; Plantar wart B07.0 ; Tinea unguium B35.1 ; Pain in right toe(s) M79.674 ; Pain in left toe(s) M79.675 ; Right foot pain M79.671 and Ischemic ulcer of left foot with fat layer exposed L97.[address] [address] 10/22/2024 Jimmy Brian Atherosclerosis of [place] artery of both lower extremities, with unspecified presence of clinical manifestation I70.203 ; Tinea unguium B35.1 ; Pain in right toe(s) M79.674 ; Pain in left toe(s) M79.675 and Ischemic ulcer of left foot with fat layer exposed L97.[address] [address] 01/21/2025 Jimmy Brian Atherosclerosis of [place] artery of both lower extremities, with unspecified presence of clinical manifestation I70.203 ; Tinea unguium B35.1 ; Pain in right toe(s) M79.674 ; Pain in left toe(s) M79.675 and Ischemic ulcer of left foot with fat layer exposed L97.[address] [address] 04/29/2025 Jimmy Brian Atherosclerosis of [place] artery of both lower extremities, with unspecified presence of clinical manifestation I70.203 ; Tinea unguium B35.1 ; Pain in right toe(s) M79.674 and Pain in left toe(s) M79.[address] [address] 06/16/2024 Jimmy Torres [address] [address] 06/18/2024 Jimmy Torres [address] [address] 07/27/2024 Jimmy Torres [facility] [address] [place] [address] 07/27/2024 Jimmy Torres Assessments Encounter Date Diagnosis [...] wart (ICD-10 - B07.0) 07/27/2024 Atherosclerosis of [place] artery of both lower extremities, with unspecified presence of clinical manifestation (ICD-10 - I70.203) 10/22/2024 Tinea unguium (ICD-10 - B35.1) 10/22/2024 Atherosclerosis of [place] artery of both lower extremities, with unspecified presence of clinical manifestation (ICD-10 - I70.203) 01/21/2025 Tinea unguium (ICD-10 - B35.1) 01/21/2025 Atherosclerosis of [place] artery of both lower extremities, with unspecified presence of clinical manifestation (ICD-10 - I70.203) 04/29/2025 Tinea unguium (ICD-10 - B35.1) 04/29/2025 Atherosclerosis of [place] artery of both lower extremities, with unspecified [...] X ray : Foot, left 3V 06/18/2024 65656-PDZFGIM NAIL, 6 OR MORE 07/27/2024 99298-BMLEYXJ NAIL, 6 OR MORE 01/23/2024 44681-KYHGKPJ NAIL, 6 OR MORE 04/27/2024 71488-SXCDBPX NAIL, 6 OR MORE 10/22/2024 16992-ORJRRGY NAIL, 6 OR MORE 01/21/2025 49337-ABIVKPN NAIL, 6 OR MORE 04/29/2025 01337-WSPDPLT NAIL, 6 OR MORE 01/08/2019 85459-EWEDHFO NAIL, 6 OR MORE 03/19/2019 79059-OTLDVPM NAIL, 6 OR MORE 06/18/2019 37437-OMOMYSO NAIL, 6 OR MORE 08/27/2019 92083-AGBCSBT NAIL, 6 OR MORE 11/12/2019 73764-NSUMKIU NAIL, 6 OR MORE 01/21/2020 53585-IHERMQZ NAIL, 6 OR MORE 03/31/2020 88200-LJGVJAQ NAIL, 6 OR MORE 06/30/2020 11304-VXMOSIC NAIL, 6 OR MORE 09/12/2020 67841-QKWCJXD NAIL, 6 OR MORE 12/01/2020 80264-AWKHAND NAIL, 6 OR MORE 02/09/2021 21986-CIOASZY NAIL, 6 OR MORE 05/15/2021 07453-CPZXCPS NAIL, 6 OR MORE 11/20/2021 64086-EWPWZFY NAIL, 6 OR MORE 05/02/2022 53341-KMWQXBS NAIL, 6 OR MORE 10/21/2023 52444-Hdzf Destruction, 1-14 10/21/2023 54191-Qrxu Destruction, 1-14 05/02/2022 03031-Mozf Destruction, 1-14 11/20/2021 19173-Bjpy Destruction, 1-14 05/15/2021 54431-Xzdg Destruction, 1-14 02/09/2021 11746-Ncfu Destruction, 1-14 12/01/2020 26312-Fvbg Destruction, 1-14 09/12/2020 08476-Lhcj Destruction, 1-14 04/27/2024 77598-Kxsj Destruction, 1-14 01/23/2024 11499-Pgrv Destruction, 1-14 07/27/2024 02689- Debride <25 sq cm 07/06/2024 60952-JWHOYDD SKIN/TISSUE 07/27/2024 08918-NQNFCQK SKIN/TISSUE 10/22/2024 31998-TTFWPPM SKIN/TISSUE 06/18/2024 55819-NMHK SKIN LESIONS, OVER 4 07/27/20 27377-GKPY SKIN LESIONS, OVER 4 01/23/20 24 27686-YVEW SKIN LESIONS, OVER 4 04/27/20 24 84290-XCOM SKIN LESIONS, OVER 4 10/23/19 89281-MWXY SKIN LESIONS, OVER 4 04/29/20 59500-GXPY SKIN LESIONS, OVER 4 01/22/20 40356-FLQR SKIN LESIONS, OVER 4 10/21/19 24 44170-BCDZ SKIN LESIONS, 2 TO 4 05/02/20 60948-DPEI SKIN LESIONS, 2 TO 4 05/15/20 54140-COFF SKIN LESIONS, 2 TO 4 11/21/19 69775-PHIR SKIN LESIONS, 2 TO 4 11/12/19 20 26112-QOII SKIN LESIONS, 2 TO 4 09/12/19 04861-NOCW SKIN LESIONS, 2 TO 4 12/02/19 38995-HNGE SKIN LESIONS, 2 TO 4 02/10/20 26661-PQXY SKIN LESIONS, 2 TO 4 06/30/20 08208-NAKW SKIN LESIONS, 2 TO 4 03/31/20 55585-FNKD SKIN LESIONS, 2 TO 4 01/21/20 96660-MZLS SKIN LESIONS, 2 TO 4 08/27/19 74942-OWJN SKIN LESIONS, 2 TO 4 06/18/20 10452-KKGH SKIN LESIONS, 2 TO 4 03/19/20 69281-UVKN SKIN LESIONS, 2 TO 4 01/09/20 81623-Effy. Subungual Hematoma 0 Next Appt Details Provider Name:Jimmy Torres , 08/23/2025 11:00:00 AM, [address] [place] [address], [phone], Insurance Providers Payer Name Payer Address Payer Phone Subscriber Number Group Number Insured Name Patient Relationship to Insured Coverage Start Date Coverage End Date Medicare National Govt Svcs Inc [address] [facility] [place] [address] [id number] Mark Jay Self - patient is the insured [facility] [address] [place] [address] [id number] Mark Jay Self - patient is the insured 7 Medical (General) History Medical History History ICD Code CAD (Cholesterol) Psoriasis Measles Mumps Chicken pox Joint implants/screws - knee and hip Surgical History Surgery Date(Month/Year) hip replacement 04/1994 knee replacement 04/1996
== END 2025-05-23 09:05 | disposition home or self-care (01) ==
LOC: HO.HMGAL 08:22
PROVIDERS: PCP Internal Medicine; Visit Provider Registered Nurse Emergency
DX: J30.89 Other allergic rhinitis (principal)
CPT/HCPCS: 95117; 95165

== ENCOUNTER 2025-06-01 08:19 | Outpatient (AMB) | payer MEDICARE, BC, SELFPAY ==
--- OUTSIDE RECORDS SUMMARY | 2025-06-01 08:39 | XMS_ITS | Patient Health Record ---
Author Organization [facility] Address [address] [place] [address] Care Team Providers Care Graphics Specialist Name Role Phone Elicia Montiel Primary Care Provider Jimmy Santa Unavailable [phone] Allergies Allergen (clinical drug ingredient) Drug/Non Drug [...] atherosclerosis of arteries of lower limbs (disorder) ([id number] ) Atherosclerosis of [place] artery of both lower extremities, with unspecified presence of clinical manifestation (I70.203) Active confirmed Vital Signs Blood pressure diastolic 65 mm Hg 04/29/2025 Height 5ft7.5in in 04/29/2025 Blood pressure systolic 127 mm Hg 04/29/2025 Weight 165 lbs 04/29/2025 BMI 25.46 kg/m2 04/29/2025 Procedures Procedure Date Ordered Date Performed Result Body Sit e 39160-WGNELNR SKIN/TISSUE 06/18/2024 N/A 39481- Debride <25 sq cm 07/06/2024 N/A 02844-OBOAFFM NAIL, 6 OR MORE 07/27/2024 N/A 36858-Ckkr Destruction, 1-14 07/27/2024 N/A 72136-PAIHUEX SKIN/TISSUE 07/27/2024 N/A 46668-JNIM SKIN LESIONS, OVER 4 07/27/2024 N/A 94061-YIFIPBK NAIL, 6 OR MORE 10/22/2024 N/A 53470-IYXDEEP SKIN/TISSUE 10/22/2024 N/A 59948-GGTG SKIN LESIONS, OVER 4 10/22/2024 N/A 09481-HQOEIBC NAIL, 6 OR MORE 01/21/2025 N/A 12577-DJSD SKIN LESIONS, OVER 4 01/21/2025 N/A 06915-PTAKNQI NAIL, 6 OR MORE 04/29/2025 N/A 25238-ZGVK SKIN LESIONS, OVER 4 04/29/2025 N/A Encounters Encounter Location Date [facility] [address] [facility]/18/[facility] Jimmy Brian Pain in left foot M79.672 ; Pain in left ankle and joints of left foot M25.572 ; Bursitis of left foot M77.52 ; 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 and Ischemic ulcer of left foot with fat layer exposed L97.[address] [address] 07/06/2024 Jimmy Brian Ischemic ulcer of le ft foot, limited to breakdown of skin L97.[address] [address] 07/27/2024 Jimmy Brian Atherosclerosis of [place] artery of both lower extremities, with unspecified presence of clinical manifestation I70.203 ; Plantar wart B07.0 ; Tinea unguium B35.1 ; Pain in right toe(s) M79.674 ; Pain in left toe(s) M79.675 ; Right foot pain M79.671 and Ischemic ulcer of left foot with fat layer exposed L97.[address] [address] 10/22/2024 Jimmy Brian Atherosclerosis of [place] artery of both lower extremities, with unspecified presence of clinical manifestation I70.203 ; Tinea unguium B35.1 ; Pain in right toe(s) M79.674 ; Pain in left toe(s) M79.675 and Ischemic ulcer of left foot with fat layer exposed L97.[address] [address] 01/21/2025 Jimmy Brian Atherosclerosis of [place] artery of both lower extremities, with unspecified presence of clinical manifestation I70.203 ; Tinea unguium B35.1 ; Pain in right toe(s) M79.674 ; Pain in left toe(s) M79.675 and Ischemic ulcer of left foot with fat layer exposed L97.[address] [address] 04/29/2025 Jimmy Brian Atherosclerosis of [place] artery of both lower extremities, with unspecified presence of clinical manifestation I70.203 ; Tinea unguium B35.1 ; Pain in right toe(s) M79.674 and Pain in left toe(s) M79.[address] [address] 06/16/2024 Jimmy Torres [address] [address] 06/18/2024 Jimmy Torres [address] [address] 07/27/2024 Jimmy Torres [facility] [address] [place] [address] 07/27/2024 Jimmy Torres Assessments Encounter Date Diagnosis [...] wart (ICD-10 - B07.0) 07/27/2024 Atherosclerosis of [place] artery of both lower extremities, with unspecified presence of clinical manifestation (ICD-10 - I70.203) 10/22/2024 Tinea unguium (ICD-10 - B35.1) 10/22/2024 Atherosclerosis of [place] artery of both lower extremities, with unspecified presence of clinical manifestation (ICD-10 - I70.203) 01/21/2025 Tinea unguium (ICD-10 - B35.1) 01/21/2025 Atherosclerosis of [place] artery of both lower extremities, with unspecified presence of clinical manifestation (ICD-10 - I70.203) 04/29/2025 Tinea unguium (ICD-10 - B35.1) 04/29/2025 Atherosclerosis of [place] artery of both lower extremities, with unspecified [...] X ray : Foot, left 3V 06/18/2024 74261-CFXCMXO NAIL, 6 OR MORE 07/27/2024 48014-ZTEDDRH NAIL, 6 OR MORE 01/23/2024 07663-SVRZBAZ NAIL, 6 OR MORE 04/27/2024 04012-SKTCAHO NAIL, 6 OR MORE 10/22/2024 49186-ZZFNUCX NAIL, 6 OR MORE 01/21/2025 62835-MTKPZYN NAIL, 6 OR MORE 04/29/2025 29673-LCVDKTH NAIL, 6 OR MORE 01/08/2019 72468-BMRBBGN NAIL, 6 OR MORE 03/19/2019 75354-OKYONKI NAIL, 6 OR MORE 06/18/2019 52420-NLDWITA NAIL, 6 OR MORE 08/27/2019 68818-QMJYBIV NAIL, 6 OR MORE 11/12/2019 95735-KDNZUWA NAIL, 6 OR MORE 01/21/2020 14739-VDRGKON NAIL, 6 OR MORE 03/31/2020 92710-SFUUBXA NAIL, 6 OR MORE 06/30/2020 94023-QHSMZTD NAIL, 6 OR MORE 09/12/2020 30410-VQGHZNV NAIL, 6 OR MORE 12/01/2020 08728-MAMJBET NAIL, 6 OR MORE 02/09/2021 02634-IHVUKHB NAIL, 6 OR MORE 05/15/2021 27931-RGBSWKX NAIL, 6 OR MORE 11/20/2021 64821-NWNYCER NAIL, 6 OR MORE 05/02/2022 06189-VVFZYCG NAIL, 6 OR MORE 10/21/2023 98282-Bogt Destruction, 1-14 10/21/2023 35342-Jlsd Destruction, 1-14 05/02/2022 50208-Pprp Destruction, 1-14 11/20/2021 96513-Twnt Destruction, 1-14 05/15/2021 10315-Trci Destruction, 1-14 02/09/2021 98407-Trje Destruction, 1-14 12/01/2020 15863-Pege Destruction, 1-14 09/12/2020 92734-Yrzp Destruction, 1-14 04/27/2024 93616-Auyv Destruction, 1-14 01/23/2024 27167-Umih Destruction, 1-14 07/27/2024 59968- Debride <25 sq cm 07/06/2024 26858-FEWFYFG SKIN/TISSUE 07/27/2024 09110-OETECVF SKIN/TISSUE 10/22/2024 08184-NTSSOMN SKIN/TISSUE 06/18/2024 32860-SCRW SKIN LESIONS, OVER 4 07/27/20 88840-LZZI SKIN LESIONS, OVER 4 01/23/20 24 39433-TBSX SKIN LESIONS, OVER 4 04/27/20 24 36111-IIIF SKIN LESIONS, OVER 4 10/23/19 33719-XJGL SKIN LESIONS, OVER 4 04/29/20 05972-EQHD SKIN LESIONS, OVER 4 01/22/20 46409-JYRR SKIN LESIONS, OVER 4 10/21/19 24 11687-RXNY SKIN LESIONS, 2 TO 4 05/02/20 08066-SCJF SKIN LESIONS, 2 TO 4 05/15/20 45404-UWCW SKIN LESIONS, 2 TO 4 11/21/19 18779-QKYD SKIN LESIONS, 2 TO 4 11/12/19 20 88642-IQFV SKIN LESIONS, 2 TO 4 09/12/19 85053-RKSO SKIN LESIONS, 2 TO 4 12/02/19 50755-UZUP SKIN LESIONS, 2 TO 4 02/10/20 01023-KXPA SKIN LESIONS, 2 TO 4 06/30/20 82473-ZKWZ SKIN LESIONS, 2 TO 4 03/31/20 81043-HMUK SKIN LESIONS, 2 TO 4 01/21/20 05342-IRNE SKIN LESIONS, 2 TO 4 08/27/19 52570-CPTX SKIN LESIONS, 2 TO 4 06/18/20 68946-JVRW SKIN LESIONS, 2 TO 4 03/19/20 66183-SYSM SKIN LESIONS, 2 TO 4 01/09/20 48977-Xxmj. Subungual Hematoma 0 Next Appt Details Provider Name:Jimmy Torres , 08/23/2025 11:00:00 AM, [address] [place] [address], [phone], Insurance Providers Payer Name Payer Address Payer Phone Subscriber Number Group Number Insured Name Patient Relationship to Insured Coverage Start Date Coverage End Date Medicare National Govt Svcs Inc [address] [facility] [place] [address] [id number] Mark Jay Self - patient is the insured [facility] [address] [place] [address] [id number] Mark Jay Self - patient is the insured 7 Medical (General) History Medical History History ICD Code CAD (Cholesterol) Psoriasis Measles Mumps Chicken pox Joint implants/screws - knee and hip Surgical History Surgery Date(Month/Year) hip replacement 04/1994 knee replacement 04/1996
== END 2025-06-01 08:20 | disposition home or self-care (01) ==
LOC: HO.HMGAL 08:19
PROVIDERS: PCP Internal Medicine; Visit Provider Registered Nurse Emergency
DX: J30.89 Other allergic rhinitis (principal)
CPT/HCPCS: 95117; 95165

== ENCOUNTER 2025-06-06 08:52 | Outpatient (AMB) | payer MEDICARE, BC, SELFPAY | END 2025-06-06 08:56 | disposition home or self-care (01) | LOC: HO.HMGAL 08:52 | PROVIDERS: PCP Internal Medicine; Visit Provider Registered Nurse Emergency | DX: J30.89 Other allergic rhinitis (principal) | CPT/HCPCS: 95117; 95165 ==

== ENCOUNTER 2025-06-13 08:16 | Outpatient (AMB) | payer MEDICARE, BC, SELFPAY ==
--- OUTSIDE RECORDS SUMMARY | 2025-06-13 08:31 | XMS_ITS | Patient Health Record ---
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, with unspecified presence of clinical manifestation (I70.203) Active confirmed Vital Signs Blood pressure diastolic 65 mm Hg 04/29/2025 Height 5ft7.5in in 04/29/2025 Blood pressure systolic 127 mm Hg 04/29/2025 Weight 165 lbs 04/29/2025 BMI 25.46 kg/m2 04/29/2025 Procedures Procedure Date Ordered Date Performed Result Body Sit e 41053-TWJWOUP SKIN/TISSUE 06/18/2024 N/A 13045- Debride <25 sq cm 07/06/2024 N/A 16074-FVKNMTY NAIL, 6 OR MORE 07/27/2024 N/A 54439-Dxmg Destruction, 1-14 07/27/2024 N/A 02229-IQUPYBZ SKIN/TISSUE 07/27/2024 N/A 59083-FVZY SKIN LESIONS, OVER 4 07/27/2024 N/A 92336-PIWALKP NAIL, 6 OR MORE 10/22/2024 N/A 01722-NHIWWJT SKIN/TISSUE 10/22/2024 N/A 40035-UOKJ SKIN LESIONS, OVER 4 10/22/2024 N/A 80951-DCHBQFI NAIL, 6 OR MORE 01/21/2025 N/A 27793-JMMT SKIN LESIONS, OVER 4 01/21/2025 N/A 23476-ZDIKMBR NAIL, 6 OR MORE 04/29/2025 N/A 35579-IMLT SKIN LESIONS, OVER 4 04/29/2025 N/A Encounters Encounter [facility] Date [facility] [address] 06/18/2024 Jimmy Brian Pain in left foot M79.672 ; Pain in left ankle and joints of left foot M25.572 ; Bursitis of left foot M77.52 ; 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 and Ischemic ulcer of left foot with fat layer exposed L97.[address] [address] 07/06/2024 Jimmy Brian Ischemic ulcer of le ft foot, limited to breakdown of skin L97.[address] [address] 07/27/2024 Jimmy Brian 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, with unspecified presence of clinical manifestation I70.203 ; Plantar wart B07.0 ; Tinea unguium B35.1 ; Pain in right toe(s) M79.674 ; Pain in left toe(s) M79.675 ; Right foot pain M79.671 and Ischemic ulcer of left foot with fat layer exposed L97.[address] [address] 10/22/2024 Jimmy Brian 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, with unspecified presence of clinical manifestation I70.203 ; Tinea unguium B35.1 ; Pain in right toe(s) M79.674 ; Pain in left toe(s) M79.675 and Ischemic ulcer of left foot with fat layer exposed L97.[address] [address] 01/21/2025 Jimmy Brian 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, with unspecified presence of clinical manifestation I70.203 ; Tinea unguium B35.1 ; Pain in right toe(s) M79.674 ; Pain in left toe(s) M79.675 and Ischemic ulcer of left foot with fat layer exposed L97.[address] [address] 04/29/2025 Jimmy Brian 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, with unspecified presence of clinical manifestation I70.203 ; Tinea unguium B35.1 ; Pain in right toe(s) M79.674 and Pain in left toe(s) M79.[address] [address] 06/16/2024 Jimmy Torres [address] [address] 06/18/2024 Jimmy Torres [address] [address] 07/27/2024 Jimmy Torres [facility] [place] [address] [place] [address] 07/27/2024 Jimmy Torres Assessments Encounter Date Diagnosis [...] wart (ICD-10 - B07.0) 07/27/2024 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, with unspecified presence of clinical manifestation (ICD-10 - I70.203) 10/22/2024 Tinea unguium (ICD-10 - B35.1) 10/22/2024 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, with unspecified presence of clinical manifestation (ICD-10 - I70.203) 01/21/2025 Tinea unguium (ICD-10 - B35.1) 01/21/2025 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, with unspecified presence of clinical manifestation (ICD-10 - I70.203) 04/29/2025 Tinea unguium (ICD-10 - B35.1) 04/29/2025 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, with unspecified [...] X ray : Foot, left 3V 06/18/2024 71622-ZSOUQFN NAIL, 6 OR MORE 07/27/2024 62886-HJFOKTT NAIL, 6 OR MORE 01/23/2024 63102-CALWDZC NAIL, 6 OR MORE 04/27/2024 18752-BNUXESE NAIL, 6 OR MORE 10/22/2024 46708-JUTTNFZ NAIL, 6 OR MORE 01/21/2025 02352-OWKTRGG NAIL, 6 OR MORE 04/29/2025 35219-ZBMFNEV NAIL, 6 OR MORE 01/08/2019 97547-RPJGSNK NAIL, 6 OR MORE 03/19/2019 71257-FDPHDHC NAIL, 6 OR MORE 06/18/2019 16998-RTVKMUK NAIL, 6 OR MORE 08/27/2019 89172-WSFIPRC NAIL, 6 OR MORE 11/12/2019 36308-TJTDAHI NAIL, 6 OR MORE 01/21/2020 02496-XQCXDJJ NAIL, 6 OR MORE 03/31/2020 73028-WUDHVBU NAIL, 6 OR MORE 06/30/2020 98584-KOKPKIH NAIL, 6 OR MORE 09/12/2020 31466-QGTISCN NAIL, 6 OR MORE 12/01/2020 49321-FZMHGNK NAIL, 6 OR MORE 02/09/2021 50618-XCSZXAE NAIL, 6 OR MORE 05/15/2021 97699-JKNCPCT NAIL, 6 OR MORE 11/20/2021 25002-XDDLTRO NAIL, 6 OR MORE 05/02/2022 03851-IUIGGHY NAIL, 6 OR MORE 10/21/2023 86190-Gxbh Destruction, 1-14 10/21/2023 20305-Iuob Destruction, 1-14 05/02/2022 27112-Hjpo Destruction, 1-14 11/20/2021 49795-Eylw Destruction, 1-14 05/15/2021 02455-Dqcj Destruction, 1-14 02/09/2021 46599-Svxc Destruction, 1-14 12/01/2020 26863-Vnce Destruction, 1-14 09/12/2020 72464-Sjne Destruction, 1-14 04/27/2024 41342-Neoi Destruction, 1-14 01/23/2024 18848-Wddn Destruction, 1-14 07/27/2024 62260- Debride <25 sq cm 07/06/2024 65712-ZFIVXKZ SKIN/TISSUE 07/27/2024 80377-POBMMMX SKIN/TISSUE 10/22/2024 70491-ZKPECWN SKIN/TISSUE 06/18/2024 78801-KZMB SKIN LESIONS, OVER 4 07/27/20 67542-FGIJ SKIN LESIONS, OVER 4 01/23/20 24 68976-PWZD SKIN LESIONS, OVER 4 04/27/20 24 38368-TNIZ SKIN LESIONS, OVER 4 10/23/19 19877-COVH SKIN LESIONS, OVER 4 04/29/20 16096-AVIK SKIN LESIONS, OVER 4 01/22/20 29841-POSG SKIN LESIONS, OVER 4 10/21/19 24 15392-DLKO SKIN LESIONS, 2 TO 4 05/02/20 54822-GVLD SKIN LESIONS, 2 TO 4 05/15/20 57935-TSYO SKIN LESIONS, 2 TO 4 11/21/19 12592-DYKE SKIN LESIONS, 2 TO 4 11/12/19 20 39306-HPGE SKIN LESIONS, 2 TO 4 09/12/19 55987-ANUV SKIN LESIONS, 2 TO 4 12/02/19 12603-IPAG SKIN LESIONS, 2 TO 4 02/10/20 77837-LESE SKIN LESIONS, 2 TO 4 06/30/20 80640-PWMN SKIN LESIONS, 2 TO 4 03/31/20 83120-DDLG SKIN LESIONS, 2 TO 4 01/21/20 20599-LFBR SKIN LESIONS, 2 TO 4 08/27/19 10322-ZFJV SKIN LESIONS, 2 TO 4 06/18/20 47873-DXAF SKIN LESIONS, 2 TO 4 03/19/20 40381-IXNT SKIN LESIONS, 2 TO 4 01/09/20 88261-Ooxk. Subungual Hematoma 0 Next Appt Details Provider Name:Jimmy Torres , 08/23/2025 11:00:00 AM, [address] [place] [address], [phone], Insurance Providers Payer Name Payer Address Payer Phone Subscriber Number Group Number Insured Name Patient Relationship to Insured Coverage Start Date Coverage End Date Medicare National [employer] [address] [facility] [place] [address] [id number] Mark Jay Self - patient is the insured [facility] [address] [place] [address] [id number] Mark Jay Self - patient is the insured 7 Medical (General) History Medical History History ICD Code CAD (Cholesterol) Psoriasis Measles Mumps Chicken pox Joint implants/screws - knee and hip Surgical History Surgery Date(Month/Year) hip replacement 04/1994 knee replacement 04/1996
== END 2025-06-13 08:17 | disposition home or self-care (01) ==
LOC: HO.HMGAL 08:16
PROVIDERS: PCP Internal Medicine; Visit Provider Registered Nurse Emergency
DX: J30.89 Other allergic rhinitis (principal)
CPT/HCPCS: 95117; 95165

== ENCOUNTER 2025-06-13 13:40 | Outpatient (AMB) | payer MEDICARE, BC, SELFPAY ==
[2025-06-13 13:41] VITALS: BP 130/80; PULSE 85; TEMP 36.3; O2SAT 95; BMI 27.5
--- NOTE | 2025-06-13 13:41 | A.OFFPC_ITS ---
Vital Signs 06/13/25 13:41 Height 5 ft 7.5 in Weight 178 lb BMI 27.5 BP 130/80 Blood Pressure Location Lt brachial Position Sitting Pulse 85 Pulse Source Pulse Oximeter Temp 97.3 F Temp Source Temporal Artery Scan Pulse Oximetry (%) 95 Oxygen Delivery Method Room Air Intake Visit Reasons: Sleep Problems Dinkey Dispatcher Required: No Accompanied by: Self / Same As Patient Allergies Penicillins Allergy (Unknown, Verified 06/13/25 13:42) Unknown Medication List - Last Reconciled 06/13/25 by Scott Rizzo MD ascorbate calcium (vitamin C) 500 mg PO DAILY aspirin 81 mg PO DAILY atorvastatin 10 mg PO DAILY bisacodyl 5 mg PO ONCE 1 day cholecalciferol (vitamin D3) 25 mcg PO DAILY guselkumab (Tremfya) mg subcut Tobacco use date assessed: 06/13/25 Fall risk assessment: No Falls in past year Last assessed Fall Risk: 06/13/25 Dental Screening Dental Screen Date: 06/13/25 Did you have a dental visit in the last 12 months?: No Did you have a dental problem in the last 6 months where you did not have access to dental care?: No HPI HPI Comments History of Present Illness Details The patient is a 74-year-old male presenting for medication management and evaluation of insomnia. The patient reports sleeping for only about 2 to 3.5 hours per night. He has tried 10 mg of melatonin a couple of weeks ago without benefit. He does not drink coffee but has not fully implemented behavioral changes like shutting down screens. The patient has a history of psoriasis, which is currently controlled with Tremfya injections administered at the doctor's office. He expressed a fear of needles and prefers not to self-administer the medication. He previously discussed using Rinvoq with his track manager, but it was not a suitable option. His medical history is significant for a porcine aortic valve replacement. He does not have a history of a heart attack or stents. He sees Dr. Diggs for cardiology. The patient has a history of tobacco use for 40 years and quit in 2007. He undergoes annual lung cancer screening, with the last scan being normal, and the next one is scheduled for August. His last colonoscopy was a while ago, and he has a pending appointment to schedule the procedure. Medical History: - Psoriasis - Hyperlipidemia - History of tobacco use, quit in 2007 a fter 40 years - Insomnia Surgical History: - Aortic valve replacement with a porcin e valve Medications: - Aspirin for heart health - Atorvastatin 10 mg for cholesterol - Tremfya (Trumfaya) for psoriasis - Melatonin 10 mg for sleep Family History: No family history was discussed. Diagnostic Results: - Labs (December 2022): Total cholesterol was 112, LDL was 58. - Imaging: Last lung cancer screening ak an (2021) was normal. Social History: - Tobacco Use: Former smoker, quit in 08 after smoking for 40 years. - Caffeine Use: Does not drink coffee bu t drinks Coke Zero in the morning. [facility] Medical History (Updated 06/13/25 @ 14:02 by Scott Rizzo MD) Psoriasis Surgical History History of left hip replacement Hx of left knee surgery History of heart or great vessel surgery Hx of colonoscopy Family History (Updated 06/13/25 @ 13:49 by Sonal Crawford MA) Mother No problems noted. Father No problems noted. Social History Housing: Apartment Alcohol intake: current Alcohol intake frequency: does not drink Patient Tobacco Use Status: Former Tobacco user e-Cigarette/Vaping Use: Never Used service: No Current occupational status: retired Cognitive needs: No Hearing needs: No Vision needs: Yes (reading glasses) Questionnaire PHQ-9 Over the last 2 weeks, how often have you been bothered by any of the following problems? 1. Little interest or pleasure in doing things: not at all 2. Feeling down, depressed, or hopeless: not at all 3. Trouble falling or staying asleep, or sleeping too much: not at all 4. Feeling tired or having little energy: not at all 5. Poor appetite or overeating: not at all 6. Feeling bad about yourself - or that you are a failure or have let yourself or your family down: not at all 7. Trouble concentrating on things, such as reading the newspaper or watching television: not at all 8. Moving or speaking so slowly that other people could have noticed. Or the opposite - being so fidgety or restless that you have been moving around a lot more than usual: not at all 9. Thoughts that you would be better off or of hurting yourself in some way: not at all Total score: 0 Source: Developed by Drs. Conor Harry, Darcie Ashton, Isai Colon and colleagues, with an educational demetrio from [employer]. Thrive Questionnaire Date Thrive assessed: 06/13/25 I am a: Patient Within the past 12 months, did the food you bought not last and you didn't have the money to get more?: Never true Within the past 12 months, did you worry whether your food would run out before you got money to buy more?: Never true Do you have trouble paying for medicines?: No Do you have trouble getting transportation to medical appointments?: No Do you have trouble paying your heating and electricity bill?: No Do you have trouble taking care of your child, family member or friend?: No Do you have trouble with day-to-day activities such as bathing, preparing meals, shopping, managing finances, etc.?: No Are you currently unemployed and looking for a job?: No Are you interested in more education?: No THRIVE Score: 0 AUDIT C Alcohol Use Questionnaire (AUDIT-C) 1. How often do you have a drink containing alcohol?: Never 3. How often do you have six or more drinks on one occasion?: Never Total Score: 0 VERNELL-7 AMB Questionnaire VERNELL-7 Date VERNELL - 7 assessed: 06/13/25 Feeling nervous, anxious, or on edge: 0 = Not at all Not being able to stop or control worryin = Not at all Worrying too much about different things: 0 = Not at all Trouble relaxin = Not at all Being so restless that it is hard to sit still: 0 = Not at all Becoming easily annoyed or irritable: 0 = Not at all Feeling afraid as if something awful might happen: 0 = Not at all Total VERNELL-7 score (0-4 normal; 5-9 mild; 10-14 moderate; 15-21 severe): 0 Source: Developed by Drs. Conor Harry, Isai Overton and colleagues, with an educational demetrio from [employer]. Review of Systems Narrative - Gastrointestinal: Reports normal urination and defecation. Denies nausea or vomiting. - Cardiovascular: Denies chest pain. - Respiratory: Denies shortness of breath. - Neurological: Reports insomnia, sleeping only 2-3.5 hours per night. - Dermatologic: Reports psoriasis is under control. All systems reviewed & are unremarkable except as reviewed in HPI and above Physical exam (Primary Care) Vital Signs: Last Vital Signs Temp 97.3 F 06/13/25 13:41 Pulse 85 06/13/25 13:41 BP 130/80 06/13/25 13:41 Pulse Ox 95 06/13/25 13:41 Oxygen Delivery Method Room Air 06/13/25 13:41 BMI result Body Mass Index 27.5 Tobacco/Smoking Status: Tobacco use Status Tobacco use date assessed 06/13/25 06/13/25 13:43 Patient Tobacco Use Status Former Tobacco user 06/13/25 13:43 e-Cigarette/Vaping Use Never Used 06/13/25 13:43 PHQ-9: PHQ-9 Score PHQ-9: Total score 0 06/13/25 13:43 Thrive Assessment: Date of Thrive Assessment Date Thrive assessed 06/13/25 06/13/25 13:43 Narrative General: +Alert and oriented, Well nourished, No acute distress. Eye: Pupils are equal, round and reactive to light, Intact accommodation, Extraocular movements are intact, Normal conjunctiva, Vision unchanged. HENT: Normocephalic, Atraumatic, Tympanic membranes are clear, Normal hearing, Oral mucosa is moist, No pharyngeal erythema, Ear canals patent. Respiratory: Lungs CTA bilaterally, No wheeze, Respirations are non-labored. Cardiovascular: Regular rate, Regular rhythm, S1 auscultated, S2 auscultated, No murmur, Good pulses equal in all extremities, Normal peripheral perfusion, No edema. Gastrointestinal: Soft, Non-tender, Non-distended, Normal bowel sounds, No organomegaly. Musculoskeletal: Normal range of motion, Normal strength, No tenderness, No swelling, No deformity, Normal gait. Integumentary: Warm, Dry, [place], Intact. Neurologic: Alert, Oriented, Normal sensory, Normal motor function, No focal defects, Cranial Nerves II-XII are grossly intact, Normal deep tendon reflexes. Psychiatric: Cooperative, Appropriate mood & affect, Normal judgment. Coding Level of Care Code Est Pt Level 4 (61477) Complex EM visit Add On G2211 Diagnoses Insomnia, unspecified type G47.00 Insomnia type: unspecified Hyperlipidemia, unspecified hyperlipidemia type E78.5 Hyperlipidemia type: unspecified Psoriasis L40.9 Assessment & Plan Assessment & Plan (1) Insomnia: Comment: - The patient reports sleeping only 2-3.5 hours per night and has had no relief from a trial of 10 mg melatonin. - He was counseled on sleep hygiene, specifically avoiding screens after 7 PM. - Ambien will not be prescribed due to its dependence potential. - Plan is to start trazodone 25 mg nightly. - The patient will continue taking melatonin and will follow up in 30 days to assess efficacy, with the option to increase the dose to 50 mg if needed. Code(s): G47.00 - Insomnia, unspecified Category: Medical Qualifiers: Insomnia type: unspecified Qualified Code(s): G47.00 - Insomnia, unspecified (2) Hyperlipidemia: Comment: - The patient's cholesterol is well-controlled on atorvastatin 10 mg, with a recent LDL of 58. - The plan is to continue the current medication and obtain labs at the 30-day follow-up visit. Code(s): E78.5 - Hyperlipidemia, unspecified Category: Medical Qualifiers: Hyperlipidemia type: unspecified Qualified Code(s): E78.5 - Hyperli pidemia, unspecified (3) Psoriasis: Comment: - The condition is well-controlled with Tremfya injections. - The patient prefers to have the injections administered at the clinic due to a fear of needles. - The plan is to continue the current treatment regimen. Code(s): L40.9 - Psoriasis, unspecified Category: Medical Plan: Health Maintenance: - Colon Cancer Screening: The patient is due for a colonoscopy and was advised to proceed with his scheduled appointment. - Lung Cancer Screening: Due to a 40-year history of smoking, the patient was advised to continue with his annual low-dose CT screenings, with the next one due in August. - Sleep Hygiene: Advised to avoid screens (TV, phones) after 7 PM to improve sleep. Patient was informed and verbally consented to the use of an ambient scribe for clinic note documentation during this visit. Plan I have reviewed the patient's concern of insomnia. I explained that Ambien would not be prescribed due to its potential for dependence. I have prescribed trazodone 25 mg to take every night, with a plan to increase the dose if there is some benefit but it is not sufficient. We discussed the importance of sleep hygiene, including stopping screen use after 7 PM. We will reassess his symptoms in 30 days. I also reminded him of the importance of completing his upcoming colonoscopy and annual lung cancer screening. Medications: New trazodone 25 mg (1/2 x 50 mg) PO BEDTIME PRN 30 tabs 0RF sleep 30 days Patient Instructions: - Take one tablet of trazodone 25 mg every night before going to bed for sleep. - You can continue taking melatonin. - Avoid using screens like the TV or your phone after 7 PM. - Continue your other medications as prescribed. - Follow up in the office in 30 days. - Proceed with getting your colonoscopy as scheduled. - Schedule your yearly lung scan for this upcoming August.
== END 2025-06-13 14:02 | disposition home or self-care (01) ==
LOC: HO.HMCHD 13:41
PROVIDERS: PCP Internal Medicine; Visit Provider Student in an Organized Health Care Education/Training Program
DX: G47.00 Insomnia, unspecified (principal); E78.5 Hyperlipidemia, unspecified; L40.9 Psoriasis, unspecified

== ENCOUNTER → 2025-06-13 13:40 | Outpatient (BNVA) | payer MEDICARE, BC, SELFPAY | PROVIDERS: PCP Internal Medicine; Visit Provider Student in an Organized Health Care Education/Training Program | DX: G47.00 Insomnia, unspecified (principal); E78.5 Hyperlipidemia, unspecified; L40.9 Psoriasis, unspecified; Z87.891 Personal history of nicotine dependence; Z79.899 Other long term (current) drug therapy; Z13.39 Encounter for screening examination for other mental health and behavioral disorders; Z13.30 Encounter for screening examination for mental health and behavioral disorders, unspecified | CPT/HCPCS: 96127; 99212 ==

== ENCOUNTER 2025-06-20 08:26 | Outpatient (AMB) | payer MEDICARE, BC, SELFPAY ==
--- OUTSIDE RECORDS SUMMARY | 2025-06-20 08:47 | XMS_ITS | Patient Health Record ---
Author Organization [facility] Address [address] [facility] [place] [address] Care Team Providers Care Transmission Tester Name Role Phone Elicia Montiel Primary Care Provider Jimmy Santa Unavailable [phone] Allergies Allergen (clinical drug ingredient) Drug/Non Drug [...] atherosclerosis of arteries of lower limbs (disorder) ([id number] ) Atherosclerosis of [place] artery of both lower extremities, with unspecified presence of clinical manifestation (I70.203) Active confirmed Vital Signs Blood pressure diastolic 65 mm Hg 04/29/2025 Height 5ft7.5in in 04/29/2025 Blood pressure systolic 127 mm Hg 04/29/2025 Weight 165 lbs 04/29/2025 BMI 25.46 kg/m2 04/29/2025 Procedures Procedure Date Ordered Date Performed Result Body Sit e 82386- Debride <25 sq cm 07/06/2024 N/A 93669-SVNMVNM NAIL, 6 OR MORE 07/27/2024 N/A 26493-Hboc Destruction, 1-14 07/27/2024 N/A 77435-CFPKOYJ SKIN/TISSUE 07/27/2024 N/A 48080-QWIS SKIN LESIONS, OVER 4 07/27/2024 N/A 84039-SLKLXFY NAIL, 6 OR MORE 10/22/2024 N/A 53017-GLLYBSF SKIN/TISSUE 10/22/2024 N/A 66141-ZEHG SKIN LESIONS, OVER 4 10/22/2024 N/A 46482-ZVXTJSA NAIL, 6 OR MORE 01/21/2025 N/A 41702-CDSP SKIN LESIONS, OVER 4 01/21/2025 N/A 34527-NFRQHCF NAIL, 6 OR MORE 04/29/2025 N/A 01791-NACZ SKIN LESIONS, OVER 4 04/29/2025 N/A Encounters Encounter Location Date Provider Diagnosis [address] [address] 07/06/2024 Jimmy Torres Ischemic ulcer of le ft foot, limited to breakdown [facility] [address] 07/27/2024 Jimmy Torres Atherosclerosis of [place] artery of both lower extremities, with unspecified presence of clinical manifestation I70.203 ; Plantar wart B07.0 ; Tinea unguium B35.1 ; Pain in right toe(s) M79.674 ; Pain in left toe(s) M79.675 ; Right foot pain M79.671 and Ischemic ulcer of left foot with fat layer exposed L97.[address] [address] 10/22/2024 Jimmy Torres Atherosclerosis of [place] artery of both lower extremities, with unspecified presence of clinical manifestation I70.203 ; Tinea unguium B35.1 ; Pain in right toe(s) M79.674 ; Pain in left toe(s) M79.675 and Ischemic ulcer of left foot with fat layer exposed L97.[address] [address] 01/21/2025 Jimmy Torres Atherosclerosis of [place] artery of both lower extremities, with unspecified presence of clinical manifestation I70.203 ; Tinea unguium B35.1 ; Pain in right toe(s) M79.674 ; Pain in left toe(s) M79.675 and Ischemic ulcer of left foot with fat layer exposed L97.[address] [address] 04/29/2025 Jimmy Torres Atherosclerosis of [place] artery of both lower extremities, with unspecified presence of clinical manifestation I70.203 ; Tinea unguium B35.1 ; Pain in right toe(s) M79.674 and Pain in left toe(s) M79.[address] [address] 07/27/2024 Jimmy Torres [address] [address] 07/27/2024 Jimmy Torres Assessments Encounter Date Diagnosis (ICD Code) Assessment Notes Treatment Notes Treatment Clinical Notes Section Notes 07/06/2024 Ischemic ulcer of left foot, limited to breakdown of skin (ICD-10 - L97.521) Response to treatment Improvement Patient Educated with: WOUND CARE INSTRUCTIONS. pdf (WOUND CARE INSTRUCTIONS. pdf) 07/27/2024 Plantar wart (ICD-10 - B07.0) 07/27/2024 Atherosclerosis of [place] artery of both lower extremities, with unspecified presence of clinical manifestation (ICD-10 - I70.203) 10/22/2024 Tinea unguium (ICD-10 - B35.1) 10/22/2024 Atherosclerosis of [place] artery of both lower extremities, with unspecified presence of clinical manifestation (ICD-10 - I70.203) 01/21/2025 Tinea unguium (ICD-10 - B35.1) 01/21/2025 Atherosclerosis of [place] artery of both lower extremities, with unspecified presence of clinical manifestation (ICD-10 - I70.203) 04/29/2025 Tinea unguium (ICD-10 - B35.1) 04/29/2025 Atherosclerosis of [place] artery of both lower extremities, with unspecified presence of clinical manifestation (ICD-10 - I70.203) 04/29/2025 Pain in right toe(s) (ICD-10 - M79.674) 10/22/2024 Pain in right toe(s) (ICD-10 - M79.674) 01/21/2025 Pain in right toe(s) (ICD-10 - M79.674) 07/27/2024 Tinea unguium (ICD-10 - B35.1) 07/27/2024 [...] X ray : Foot, left 3V 06/18/2024 41570-FDVTJCO NAIL, 6 OR MORE 07/27/2024 09856-PHYKUNJ NAIL, 6 OR MORE 01/23/2024 00783-HUGVCAG NAIL, 6 OR MORE 04/27/2024 06032-JXVTBRQ NAIL, 6 OR MORE 10/22/2024 89411-JCVTHKV NAIL, 6 OR MORE 01/21/2025 36765-USXKUYG NAIL, 6 OR MORE 04/29/2025 88086-YVJIPJY NAIL, 6 OR MORE 01/08/2019 20696-OWEQPHE NAIL, 6 OR MORE 03/19/2019 02211-ONOCRKE NAIL, 6 OR MORE 06/18/2019 94572-ODTJLOX NAIL, 6 OR MORE 08/27/2019 70636-KKRUAEB NAIL, 6 OR MORE 11/12/2019 68729-FYADOWT NAIL, 6 OR MORE 01/21/2020 56756-BQIKBVK NAIL, 6 OR MORE 03/31/2020 19092-TUNDLIY NAIL, 6 OR MORE 06/30/2020 98480-MLAQVRL NAIL, 6 OR MORE 09/12/2020 01509-NUUPSVN NAIL, 6 OR MORE 12/01/2020 50620-TGKLUTW NAIL, 6 OR MORE 02/09/2021 96904-JBZFBYA NAIL, 6 OR MORE 05/15/2021 42450-ZEZZTRP NAIL, 6 OR MORE 11/20/2021 65449-MBKKIXA NAIL, 6 OR MORE 05/02/2022 87662-VNFTNHY NAIL, 6 OR MORE 10/21/2023 82713-Sllv Destruction, -14 10/21/2023 98847-Ocas Destruction, -14 05/02/2022 21680-Jfth Destruction, -14 11/20/2021 51330-Swkh Destruction, -14 05/15/2021 24647-Buqo Destruction, -14 02/09/2021 13416-Gxsr Destruction, -14 12/01/2020 46398-Goyw Destruction, -14 09/12/2020 52973-Irgx Destruction, -14 04/27/2024 89564-Rcll Destruction, -14 01/23/2024 55990-Nbpw Destruction, -14 07/27/2024 25211- Debride <25 sq cm 07/06/2024 54082-IEDRQFP SKIN/TISSUE 07/27/2024 98229-ZWSOZAJ SKIN/TISSUE 10/22/2024 34829-YEFMGXM SKIN/TISSUE 06/18/2024 67101-RAEC SKIN LESIONS, OVER 4 07/27/20 24 69833-QRDV SKIN LESIONS, OVER 4 01/23/20 09840-NVBR SKIN LESIONS, OVER 4 04/27/20 26852-VEHF SKIN LESIONS, OVER 4 10/23/19 29868-NCZD SKIN LESIONS, OVER 4 04/29/20 19914-MAHE SKIN LESIONS, OVER 4 01/22/20 12725-XHLD SKIN LESIONS, OVER 4 10/21/19 30768-AONS SKIN LESIONS, 2 TO 4 05/02/20 22342-QUUR SKIN LESIONS, 2 TO 4 05/15/20 21 72619-OMNQ SKIN LESIONS, 2 TO 4 11/21/19 36446-EDVY SKIN LESIONS, 2 TO 4 11/12/19 20 39181-DJKF SKIN LESIONS, 2 TO 4 09/12/19 21 94138-PTVJ SKIN LESIONS, 2 TO 4 12/02/19 21 50628-WTMN SKIN LESIONS, 2 TO 4 02/10/20 21 60660-FNMI SKIN LESIONS, 2 TO 4 06/30/20 20 52260-MMOU SKIN LESIONS, 2 TO 4 03/31/20 20 51512-HXNX SKIN LESIONS, 2 TO 4 01/21/20 20 97154-WKCS SKIN LESIONS, 2 TO 4 08/27/19 20 61525-KBUD SKIN LESIONS, 2 TO 4 06/18/20 19 86606-FJQO SKIN LESIONS, 2 TO 4 03/19/20 19 59230-NGWZ SKIN LESIONS, 2 TO 4 01/09/20 19 47007-Xpvl. Subungual Hematoma 0 Next Appt Details Provider Name:Jimmy Torres , 08/23/2025 11:00:00 AM, [address] [facility] [place], [place], [address], Insurance Providers Payer Name Payer Address Payer Phone Subscriber Number Group Number Insured Name Patient Relationship to Insured Coverage Start Date Coverage End Date Medicare National [employer] [address] [place] [address] [id number] Mark Jay Self - patient is the insured [facility] [address] [place] [address] [id number] Mark Jay Self - patient is the insured 7 Medical (General) History Medical History History ICD Code CAD (Cholesterol) Psoriasis Measles Mumps Chicken pox Joint implants/screws - knee and hip Surgical History Surgery Date(Month/Year) hip replacement 04/1994 knee replacement 04/1996
== END 2025-06-20 08:32 | disposition home or self-care (01) ==
LOC: HO.HMGAL 08:26
PROVIDERS: PCP Internal Medicine; Visit Provider Registered Nurse Emergency
DX: J30.89 Other allergic rhinitis (principal)
CPT/HCPCS: 95117; 95165

== ENCOUNTER 2025-06-27 08:11 | Outpatient (AMB) | payer MEDICARE, BC, SELFPAY ==
--- OUTSIDE RECORDS SUMMARY | 2025-06-27 08:32 | XMS_ITS | Patient Health Record ---
Author Organization [facility] Address [address] [facility] [place] [address] Care Team Providers Care Vegetable Inspector Name Role Phone Elicia Montiel Primary Care Provider Jimmy Santa Unavailable [phone] Allergies Allergen (clinical drug ingredient) Drug/Non Drug [...] atherosclerosis of arteries of lower limbs (disorder) ([id number] ) Atherosclerosis of [place] artery of both lower extremities, with unspecified presence of clinical manifestation (I70.203) Active confirmed Vital Signs Blood pressure diastolic 65 mm Hg 04/29/2025 Height 5ft7.5in in 04/29/2025 Blood pressure systolic 127 mm Hg 04/29/2025 Weight 165 lbs 04/29/2025 BMI 25.46 kg/m2 04/29/2025 Procedures Procedure Date Ordered Date Performed Result Body Sit e 55974- Debride <25 sq cm 07/06/2024 N/A 95321-EWDHFMI NAIL, 6 OR MORE 07/27/2024 N/A 80129-Xlhs Destruction, 1-14 07/27/2024 N/A 68433-XCVKWBK SKIN/TISSUE 07/27/2024 N/A 95002-GUJD SKIN LESIONS, OVER 4 07/27/2024 N/A 24673-LODJUYM NAIL, 6 OR MORE 10/22/2024 N/A 27882-QZNSKPA SKIN/TISSUE 10/22/2024 N/A 38601-LKTV SKIN LESIONS, OVER 4 10/22/2024 N/A 18769-DZHVFGD NAIL, 6 OR MORE 01/21/2025 N/A 11124-GUYX SKIN LESIONS, OVER 4 01/21/2025 N/A 19610-YXUDXBI NAIL, 6 OR MORE 04/29/2025 N/A 67547-FWOJ SKIN LESIONS, OVER 4 04/29/2025 N/A Encounters Encounter Location Date Provider Diagnosis [address] [address] 07/06/2024 Jimmy Torres Ischemic ulcer of le ft foot, limited to breakdown of skin [facility]97.[facility] [address] 07/27/2024 Jimmy Torres Atherosclerosis of [place] artery of both lower extremities, with unspecified presence of clinical manifestation I70.203 ; Plantar wart B07.0 ; Tinea unguium B35.1 ; Pain in right toe(s) M79.674 ; Pain in left toe(s) M79.675 ; Right foot pain M79.671 and Ischemic ulcer of left foot with fat layer exposed L97.[address] [address] 10/22/2024 Jimmy Torres Atherosclerosis of [place] artery of both lower extremities, with unspecified presence of clinical manifestation I70.203 ; Tinea unguium B35.1 ; Pain in right toe(s) M79.674 ; Pain in left toe(s) M79.675 and Ischemic ulcer of left foot with fat layer exposed L97.[address] [address] 01/21/2025 Jimmy Torres Atherosclerosis of [place] artery of both lower extremities, with unspecified presence of clinical manifestation I70.203 ; Tinea unguium B35.1 ; Pain in right toe(s) M79.674 ; Pain in left toe(s) M79.675 and Ischemic ulcer of left foot with fat layer exposed L97.[address] [address] 04/29/2025 Jimmy Torres Atherosclerosis of [place] artery of both lower extremities, with unspecified presence of clinical manifestation I70.203 ; Tinea unguium B35.1 ; Pain in right toe(s) M79.674 and Pain in left toe(s) M79.[address] [address] 07/27/2024 Jimmy Torres [address] [address] 07/27/2024 Jimmy Torres Assessments Encounter Date Diagnosis (ICD Code) Assessment Notes Treatment Notes Treatment Clinical Notes Section Notes 07/06/2024 Ischemic ulcer of left foot, limited to breakdown of skin (ICD-10 - L97.521) Response to treatment Improvement Patient Educated with: WOUND CARE INSTRUCTIONS. pdf (WOUND CARE INSTRUCTIONS. pdf) 07/27/2024 Plantar wart (ICD-10 - B07.0) 07/27/2024 Atherosclerosis of [place] artery of both lower extremities, with unspecified presence of clinical manifestation (ICD-10 - I70.203) 10/22/2024 Tinea unguium (ICD-10 - B35.1) 10/22/2024 Atherosclerosis of [place] artery of both lower extremities, with unspecified presence of clinical manifestation (ICD-10 - I70.203) 01/21/2025 Tinea unguium (ICD-10 - B35.1) 01/21/2025 Atherosclerosis of [place] artery of both lower extremities, with unspecified presence of clinical manifestation (ICD-10 - I70.203) 04/29/2025 Tinea unguium (ICD-10 - B35.1) 04/29/2025 Atherosclerosis of [place] artery of both lower extremities, with unspecified [...] X ray : Foot, left 3V 06/18/2024 46867-NOJWPNN NAIL, 6 OR MORE 07/27/2024 70079-VATWPXK NAIL, 6 OR MORE 01/23/2024 81906-PXVNHRX NAIL, 6 OR MORE 04/27/2024 32723-MBGETEH NAIL, 6 OR MORE 10/22/2024 29264-QNJOVED NAIL, 6 OR MORE 01/21/2025 05372-KBEXJIF NAIL, 6 OR MORE 04/29/2025 80312-QQJTAJO NAIL, 6 OR MORE 01/08/2019 20257-IIXFTXA NAIL, 6 OR MORE 03/19/2019 57282-RXRVBLI NAIL, 6 OR MORE 06/18/2019 16411-UYZSKPG NAIL, 6 OR MORE 08/27/2019 47489-ETARFAM NAIL, 6 OR MORE 11/12/2019 15922-VDQHEWM NAIL, 6 OR MORE 01/21/2020 63564-WHGAQWR NAIL, 6 OR MORE 03/31/2020 47667-HGHXUGC NAIL, 6 OR MORE 06/30/2020 99032-OAEBQQT NAIL, 6 OR MORE 09/12/2020 63057-HEORUDJ NAIL, 6 OR MORE 12/01/2020 99543-KPRYNJS NAIL, 6 OR MORE 02/09/2021 56046-LVEESVL NAIL, 6 OR MORE 05/15/2021 54071-SHQJYMP NAIL, 6 OR MORE 11/20/2021 54753-SUSHTCD NAIL, 6 OR MORE 05/02/2022 44962-DERZJAG NAIL, 6 OR MORE 10/21/2023 03220-Nlpz Destruction, -14 10/21/2023 70157-Rojs Destruction, -14 05/02/2022 43764-Pegd Destruction, -14 11/20/2021 90868-Jpqm Destruction, -14 05/15/2021 08809-Yffj Destruction, -14 02/09/2021 63514-Pxaz Destruction, -14 12/01/2020 87751-Dwoc Destruction, -14 09/12/2020 84570-Lpks Destruction, -14 04/27/2024 93233-Qpbr Destruction, -14 01/23/2024 42611-Svvf Destruction, -14 07/27/2024 32504- Debride <25 sq cm 07/06/2024 97748-DIQATHI SKIN/TISSUE 07/27/2024 42217-IARNDSQ SKIN/TISSUE 10/22/2024 01209-RXFPRXD SKIN/TISSUE 06/18/2024 02909-QXRV SKIN LESIONS, OVER 4 07/27/20 24 32550-VFAF SKIN LESIONS, OVER 4 01/23/20 33130-DRPZ SKIN LESIONS, OVER 4 04/27/20 18899-THWF SKIN LESIONS, OVER 4 10/23/19 67193-TUJO SKIN LESIONS, OVER 4 04/29/20 30484-WNMN SKIN LESIONS, OVER 4 01/22/20 78591-KKYW SKIN LESIONS, OVER 4 10/21/19 82596-PNRW SKIN LESIONS, 2 TO 4 05/02/20 74419-BCQG SKIN LESIONS, 2 TO 4 05/15/20 21 21051-FMOV SKIN LESIONS, 2 TO 4 11/21/19 75484-WDQI SKIN LESIONS, 2 TO 4 11/12/19 20 61995-EBHP SKIN LESIONS, 2 TO 4 09/12/19 21 74057-JKFX SKIN LESIONS, 2 TO 4 12/02/19 21 56334-DRNL SKIN LESIONS, 2 TO 4 02/10/20 21 18272-JKZS SKIN LESIONS, 2 TO 4 06/30/20 20 82125-ETYR SKIN LESIONS, 2 TO 4 03/31/20 20 70447-RNPW SKIN LESIONS, 2 TO 4 01/21/20 20 71115-OFCD SKIN LESIONS, 2 TO 4 08/27/19 20 27818-OBIF SKIN LESIONS, 2 TO 4 06/18/20 19 59118-JGCG SKIN LESIONS, 2 TO 4 03/19/20 19 06726-WEQM SKIN LESIONS, 2 TO 4 01/09/20 19 09160-Aejp. Subungual Hematoma 0 Next Appt Details Provider Name:Jimmy Torres , 08/23/2025 11:00:00 AM, [address] [facility], [place], [address], Insurance Providers Payer Name Payer Address Payer Phone Subscriber Number Group Number Insured Name Patient Relationship to Insured Coverage Start Date Coverage End Date Medicare National Govt Sv[employer] [address] [place] [address] [id number] Mark Jay Self - patient is the insured [facility] [address] [place] [address] [id number] Mark Jay Self - patient is the insured 7 Medical (General) History Medical History History ICD Code CAD (Cholesterol) Psoriasis Measles Mumps Chicken pox Joint implants/screws - knee and hip Surgical History Surgery Date(Month/Year) hip replacement 04/1994 knee replacement 04/1996
== END 2025-06-27 08:22 | disposition home or self-care (01) ==
LOC: HO.HMGAL 08:11
PROVIDERS: PCP Internal Medicine; Visit Provider Registered Nurse Emergency
DX: J30.89 Other allergic rhinitis (principal)
CPT/HCPCS: 95117; 95165

== ENCOUNTER 2025-07-04 08:21 | Outpatient (AMB) | payer MEDICARE, BC, SELFPAY | END 2025-07-04 08:21 | disposition home or self-care (01) | LOC: HO.HMGAL 08:21 | PROVIDERS: PCP Internal Medicine; Visit Provider Registered Nurse Emergency | DX: J30.89 Other allergic rhinitis (principal) | CPT/HCPCS: 95117; 95165 ==

== ENCOUNTER 2025-07-11 09:06 | Outpatient (AMB) | payer MEDICARE, BC, SELFPAY ==
--- NOTE | 2025-07-11 08:35 | A.OFFPC_ITS ---
Vital Signs 07/11/25 09:19 Height 5 ft 7.5 in Weight 178 lb BMI 27.5 BP 128/74 Blood Pressure Location Lt brachial Position Sitting Pulse 84 Pulse Source Pulse Oximeter Temp 97.4 F Temp Source Temporal Artery Scan Pulse Oximetry (%) 96 Oxygen Delivery Method Room Air Intake Visit Reasons: 4 Week F/U Blueprint Processor Required: No Accompanied by: Self / Same As Patient Allergies Penicillins Allergy (Unknown, Verified 07/11/25 09:23) Unknown Tobacco use date assessed: 07/11/25 Fall risk assessment: No Falls in past year Last assessed Fall Risk: 07/11/25 Dental Screening Dental Screen Date: 07/11/25 Did you have a dental visit in the last 12 months?: No Did you have a dental problem in the last 6 months where you did not have access to dental care?: No HPI HPI Comments History of Present Illness Details History of Present Illness The patient is a 74 year old individual presenting with a complaint of poor sleep. The patient reports sleeping for five to six hours per night, which is less than previously. The patient has been taking trazodone, with the dose initially at 25 mg and then increased to 50 mg. An attempt to take half of the 50 mg dose was ineffective, so the patient is currently taking the full 50 mg. The patient also reports recent weight gain. The patient's physical activity is limited to walking, partly due to a history of a hip replacement, and states an inability to bend over. 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 The patient's medical history includes hyperlipidemia, managed with atorvastatin 10 mg, and is on aspirin for cardiovascular health. The patient has an upcoming dermatology appointment on August 03 and receives a shot every 56 days for an unspecified condition, which is reportedly clear of new issues. Medical History: - Insomnia - Hyperlipidemia - Unspecified cardiac condition requirin g aspirin therapy - Unspecified dermatologic condition man aged with injections every 56 days Surgical History: - Hip replacement Medications: - Trazodone 50 mg for insomnia - Atorvastatin 10 mg for hyperlipidemia - Aspirin for cardiac health - Unspecified injection every 56 days fo r a dermatologic condition Diagnostic Results: - Lipid Panel: LDL was 57. 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 - Exercise: The patient reports currentl y only walking for activity, which includes walking around the house. PFSH Medical History (Updated 07/11/25 @ 10:00 by Scott Rizzo MD) Weight gain Psoriasis Surgical History History of left hip replacement Hx of left knee surgery History of heart or great vessel surgery Hx of colonoscopy Family History Mother No problems noted. Father No problems noted. Social History Housing: Apartment Alcohol intake: current Alcohol intake frequency: does not drink Patient Tobacco Use Status: Former Tobacco user e-Cigarette/Vaping Use: Never Used service: No Current occupational status: retired Cognitive needs: No Hearing needs: No Vision needs: Yes (reading glasses) Questionnaire PHQ-9 Over the last 2 weeks, how often have you been bothered by any of the following problems? 1. Little interest or pleasure in doing things: not at all 2. Feeling down, depressed, or hopeless: not at all 3. Trouble falling or staying asleep, or sleeping too much: not at all 4. Feeling tired or having little energy: not at all 5. Poor appetite or overeating: not at all 6. Feeling bad about yourself - or that you are a failure or have let yourself or your family down: not at all 7. Trouble concentrating on things, such as reading the newspaper or watching television: not at all 8. Moving or speaking so slowly that other people could have noticed. Or the opposite - being so fidgety or restless that you have been moving around a lot more than usual: not at all 9. Thoughts that you would be better off or of hurting yourself in some way: not at all Total score: 0 Depression Screening Interpretation: Negative Depression Screening Done: Yes Source: Developed by Drs. Conor Harry, Darcie Ashton, Isai Colon and colleagues, with an educational demetrio from [employer]. Thrive Questionnaire Date Thrive assessed: 07/11/25 I am a: Patient Within the past 12 months, did the food you bought not last and you didn't have the money to get more?: Never true Within the past 12 months, did you worry whether your food would run out before you got money to buy more?: Never true Do you have trouble paying for medicines?: No Do you have trouble getting transportation to medical appointments?: No Do you have trouble paying your heating and electricity bill?: No Do you have trouble taking care of your child, family member or friend?: No Do you have trouble with day-to-day activities such as bathing, preparing meals, shopping, managing finances, etc.?: No Are you currently unemployed and looking for a job?: No Are you interested in more education?: No THRIVE Score: 0 AUDIT C Alcohol Use Questionnaire (AUDIT-C) 1. How often do you have a drink containing alcohol?: Never 3. How often do you have six or more drinks on one occasion?: Never Total Score: 0 VERNELL-7 AMB Questionnaire VERNELL-7 Date VERNELL - 7 assessed: 07/11/25 Feeling nervous, anxious, or on edge: 0 = Not at all Not being able to stop or control worryin = Not at all Worrying too much about different things: 0 = Not at all Trouble relaxin = Not at all Being so restless that it is hard to sit still: 0 = Not at all Becoming easily annoyed or irritable: 0 = Not at all Feeling afraid as if something awful might happen: 0 = Not at all Total VERNELL-7 score (0-4 normal; 5-9 mild; 10-14 moderate; 15-21 severe): 0 Source: Developed by Drs. Conor Harry, Darcie Ashton, Isai Colon and colleagues, with an educational demetrio from [employer]. Review of Systems Narrative Review of Systems - Neurological: Reports insomnia, sleeping five to six hours per night. - Constitutional: Reports recent weight gain. - Genitourinary: Reports normal urination. - Gastrointestinal: Reports normal bowel movements. - Integumentary: Reports a recent black and blue jim on the hand after bumping it. - Denies any new skin issues related to the chronic dermatologic condition. All systems reviewed & are unremarkable except as reviewed in HPI and above Physical exam (Primary Care) Vital Signs: Last Vital Signs Temp 97.4 F 07/11/25 09:19 Pulse 84 07/11/25 09:19 BP 128/74 07/11/25 09:19 Pulse Ox 96 07/11/25 09:19 Oxygen Delivery Method Room Air 07/11/25 09:19 BMI result Body Mass Index 27.5 Tobacco/Smoking Status: Tobacco use Status Tobacco use date assessed 07/11/25 07/11/25 09:19 Patient Tobacco Use Status Former Tobacco user 07/11/25 08:35 e-Cigarette/Vaping Use Never Used 07/11/25 08:35 PHQ-9: PHQ-9 Score PHQ-9: Total score 0 07/11/25 09:24 Depression Screening Interpretation: Negative Thrive Assessment: Date of Thrive Assessment Date Thrive assessed 07/11/25 07/11/25 09:24 Narrative Physical Exam General: +Alert and oriented, Well nourished, No acute distress. Eye: Pupils are equal, round and reactive to light, Intact accommodation, Extraocular movements are intact, Normal conjunctiva, Vision unchanged. HENT: Normocephalic, Atraumatic, Tympanic membranes are clear, Normal hearing, Oral mucosa is moist, No pharyngeal erythema, Ear canals patent. Respiratory: Lungs CTA bilaterally, No wheeze, Respirations are non-labored. Cardiovascular: Regular rate, Regular rhythm, S1 auscultated, S2 auscultated, No murmur, Good pulses equal in all extremities, Normal peripheral perfusion, No edema. Gastrointestinal: Soft, Non-tender, Non-distended, Normal bowel sounds, No organomegaly. Musculoskeletal: Normal range of motion, Normal strength, No tenderness, No swelling, No deformity, Normal gait. Integumentary: Warm, Dry, [place], Intact, with a black and blue jim on the hand from hitting a cabinet. Neurologic: Alert, Oriented, Normal sensory, Normal motor function, No focal defects, Cranial Nerves II-XII are grossly intact, Normal deep tendon reflexes. Psychiatric: Cooperative, Appropriate mood & affect, Normal judgment. Coding Level of Care Code Est Pt Level 4 (76121) Complex visit Add On G2211 Diagnoses Insomnia, unspecified type G47.00 Insomnia type: unspecified Hyperlipidemia, unspecified hyperlipidemia type E78.5 Hyperlipidemia type: unspecified Psoriasis L40.9 Weight gain R63.5 Assessment & Plan Assessment & Plan (1) Insomnia: Comment: - The patient reports sleeping 5-6 hours per night, which is considered an adequate duration for the patient's age. - Despite this, to address the patient's subjective complaint of poor sleep, the trazodone dose will be increased from 50 mg to 100 mg. A new prescription will be sent. - The patient was educated that sleep requirements decrease with age and that inducing sleep with medication is not a healthy long-term solution. Code(s): G47.00 - Insomnia, unspecified Category: Medical Qualifiers: Insomnia type: unspecified Qualified Code(s): G47.00 - Insomnia, unspecified (2) Hyperlipidemia: Comment: - Well-controlled on atorvastatin 10 mg. A recent lipid panel showed an LDL of 57, which is excellent. - Continue current medication. Code(s): E78.5 - Hyperlipidemia, unspecified Category: Medical Qualifiers: Hyperlipidemia type: unspecified Qualified Code(s): E78.5 - Hyperlipidemia, unspecified (3) Psoriasis: Comment: - The condition is well-controlled with Tremfya injections. - The patient receives an injection every 56 days and reports the condition is clear. - The patient will follow up with the corner trimmer operator on August 03. Code(s): L40.9 - Psoriasis, unspecified Category: Medical (4) Weight gain: Comment: - The patient has experienced weight gain and has a low activity level. - The patient was counseled on the importance of increasing physical activity to manage weight and improve natural sleep. - Recommendations included walking several miles a day, shoveling snow, and raking leaves. Code(s): R63.5 - Abnormal weight gain Category: Medical Plan: Health Maintenance: - The patient was counseled on increasing physical activity to include walking, shoveling snow, or raking leaves to improve overall health, manage weight, and aid with natural sleep. - Discussed age-appropriate sleep expectations, advising that 5-6 hours of sleep is adequate for a person of the patient's age. - The patient is scheduled for a follow-up with dermatology on August 03. Patient was informed and verbally consented to the use of an ambient scribe for clinic note documentation during this visit. Plan I discussed the patient's complaint of poor sleep, explaining that at 74 years old, sleeping five to six hours a night is a good amount and that the duration of sleep needed tends to drop with age. I advised that using medication to force sleep is not a healthy solution. To help with sleep and recent weight gain, I strongly encouraged the patient to increase physical activity beyond just walking around the house, suggesting activities like walking a couple of miles, shoveling snow, and raking leaves to naturally tire the body out. I agreed to increase the trazodone prescription from 50 mg to 100 mg and sent it to the pharmacy. We reviewed the patient's lipid panel, noting the LDL of 57 is good, and confirmed continuation of atorvastatin 10 mg and daily aspirin. We discussed the bruise on the patient's hand, and I explained that this is more common with age due to weaker veins and thinner skin. I advised the patient to continue with dermatology follow-up and to return to see me in three months. Medications: New trazodone 100 mg PO BEDTIME PRN 30 tabs 0RF sleep Discontinued trazodone Discontinued Reason: Doctor's Order 25 mg (1/2 x 50 mg) PO BEDTIME 30 days PRN 30 tabs 0RF sleep Patient Instructions: - Take trazodone 100 mg for sleep as prescribed. A new prescription has been sent. - Continue taking atorvastatin 10 mg daily for your cholesterol. Your recent lab results were good. - Continue taking your daily aspirin for heart health. - Increase your physical activity to help with your sleep and weight. Try to walk more, rake leaves, or shovel snow to keep active. - Keep your appointment with your corner trimmer operator on August 03. - Be careful, as your skin may bruise more easily with age. - Schedule a follow-up appointment in three months.
[2025-07-11 09:19] VITALS: BP 128/74; PULSE 84; TEMP 36.3; O2SAT 96; BMI 27.5
--- OUTSIDE RECORDS SUMMARY | 2025-07-11 09:57 | XMS_ITS | Patient Health Record ---
Author Organization [facility] Address [address] [place] [address] Care Team Providers Care Quality Improvement Engineer Name Role Phone Elicia Montiel Primary Care Provider Jimmy Snata Unavailable [phone] Allergies Allergen (clinical drug ingredient) Drug/Non Drug [...] atherosclerosis of arteries of lower limbs (disorder) ([id number] ) Atherosclerosis of [place] artery of both lower extremities, with unspecified presence of clinical manifestation (I70.203) Active confirmed Vital Signs Blood pressure diastolic 65 mm Hg 04/29/2025 Height 5ft7.5in in 04/29/2025 Blood pressure systolic 127 mm Hg 04/29/2025 Weight 165 lbs 04/29/2025 BMI 25.46 kg/m2 04/29/2025 Procedures Procedure Date Ordered Date Performed Result Body Sit e 49674-AYOO SKIN LESIONS, OVER 4 04/29/2025 N/A 65793-MYVEHLK NAIL, 6 OR MORE 04/29/2025 N/A 10473-ZZZN SKIN LESIONS, OVER 4 01/21/2025 N/A 95311-SXPJBMG NAIL, 6 OR MORE 01/21/2025 N/A 54291-IUGG SKIN LESIONS, OVER 4 10/22/2024 N/A 00725-RCLWDVA SKIN/TISSUE 10/22/2024 N/A 59917-FTNCXUH NAIL, 6 OR MORE 10/22/2024 N/A 00638-ISJZ SKIN LESIONS, OVER 4 07/27/2024 N/A 76511-MGCCUWJ SKIN/TISSUE 07/27/2024 N/A 33447-Wuzx Destruction, 1-14 07/27/2024 N/A 31052-GCBHTJG NAIL, 6 OR MORE 07/27/2024 N/A Encounters Encounter Location Date Provider Diagnosis [address] [address] 07/27/2024 Jimmy Torres Atherosclerosis of [place] artery of both lower extremities, with unspecified presence of clinical manifestation I70.203 ; Plantar wart B07.0 ; Tinea unguium B35.1 ; Pain in right toe(s) M79.674 ; Pain in left toe(s) M79.675 ; Right foot pain M79.671 and Ischemic ulcer of left foot with fat layer exposed L97.[address] [facility] [address] 10/22/2024 Jimmy Torres Atherosclerosis of [place] artery of both lower extremities, with unspecified presence of clinical manifestation I70.203 ; Tinea unguium B35.1 ; Pain in right toe(s) M79.674 ; Pain in left toe(s) M79.675 and Ischemic ulcer of left foot with fat layer exposed L97.[address] [address] 01/21/2025 Jimmy Torres Atherosclerosis of [place] artery of both lower extremities, with unspecified presence of clinical manifestation I70.203 ; Tinea unguium B35.1 ; Pain in right toe(s) M79.674 ; Pain in left toe(s) M79.675 and Ischemic ulcer of left foot with fat layer exposed L97.[address] [address] 04/29/2025 Jimmy Torres Atherosclerosis of [place] artery of both lower extremities, with unspecified presence of clinical manifestation I70.203 ; Tinea unguium B35.1 ; Pain in right toe(s) M79.674 and Pain in left toe(s) M79.[address] [address] 07/27/2024 Jimmy Torres [address] [address] 07/27/2024 Jimmy Torres Assessments Encounter Date Diagnosis (ICD Code) Assessment Notes Treatment Notes Treatment Clinical Notes Section Notes 07/27/2024 Plantar wart (ICD-10 - B07.0) 07/27/2024 Atherosclerosis of [place] artery of both lower extremities, with unspecified presence of clinical manifestation (ICD-10 - I70.203) 10/22/2024 Tinea unguium (ICD-10 - B35.1) 10/22/2024 Atherosclerosis of [place] artery of both lower extremities, with unspecified presence of clinical manifestation (ICD-10 - I70.203) 01/21/2025 Tinea unguium (ICD-10 - B35.1) 01/21/2025 Atherosclerosis of [place] artery of both lower extremities, with unspecified presence of clinical manifestation (ICD-10 - I70.203) 04/29/2025 Tinea unguium (ICD-10 - B35.1) 04/29/2025 Atherosclerosis of [place] artery of both lower extremities, with unspecified [...] X ray : Foot, left 3V 06/18/2024 87187-CUUSNCV NAIL, 6 OR MORE 01/21/2025 28973-WXJXDFD NAIL, 6 OR MORE 07/27/2024 27262-LCLRTRB NAIL, 6 OR MORE 10/22/2024 83916-VNLUWQU NAIL, 6 OR MORE 11/20/2021 67928-FDBGHLN NAIL, 6 OR MORE 01/23/2024 68223-GWTNJPB NAIL, 6 OR MORE 04/27/2024 05324-SAPSCGL NAIL, 6 OR MORE 01/08/2019 08781-WZNMDBZ NAIL, 6 OR MORE 03/19/2019 51242-GMQUPCT NAIL, 6 OR MORE 06/18/2019 30360-TEXQVUQ NAIL, 6 OR MORE 08/27/2019 10833-GWMKLNQ NAIL, 6 OR MORE 11/12/2019 23099-EAWNSOY NAIL, 6 OR MORE 01/21/2020 41441-CXOYHJH NAIL, 6 OR MORE 06/30/2020 39603-YBMVEED NAIL, 6 OR MORE 05/15/2021 94065-QEUFPYN NAIL, 6 OR MORE 10/21/2023 47957-XOOISYJ NAIL, 6 OR MORE 05/02/2022 26615-CSOZQQL NAIL, 6 OR MORE 02/09/2021 78456-XZOLFWI NAIL, 6 OR MORE 12/01/2020 13107-JTLTGHM NAIL, 6 OR MORE 09/12/2020 60949-GBOSASC NAIL, 6 OR MORE 03/31/2020 03636-LJNKEVT NAIL, 6 OR MORE 04/29/2025 81759-Bhjo Destruction, 1-14 09/12/2020 40125-Yxcm Destruction, 1-14 12/01/2020 56327-Uwng Destruction, 1-14 02/09/2021 52200-Xtpb Destruction, -14 05/02/2022 92210-Ykds Destruction, -14 10/21/2023 70096-Lkyy Destruction, 1-14 05/15/2021 31947-Rwkf Destruction, -14 04/27/2024 62545-Ljgj Destruction, -14 01/23/2024 76308-Ahnx Destruction, -14 11/20/2021 75961-Kich Destruction, 1-14 07/27/2024 58506- Debride <25 sq cm 07/06/2024 62323-JRUBMGB SKIN/TISSUE 10/22/2024 52568-MUNYEYL SKIN/TISSUE 06/18/2024 77653-OOSJLGR SKIN/TISSUE 07/27/2024 52578-CUNR SKIN LESIONS, OVER 4 04/29/20 39137-SOKN SKIN LESIONS, OVER 4 10/21/19 82956-JHOX SKIN LESIONS, OVER 4 01/22/20 09422-PCLK SKIN LESIONS, OVER 4 10/23/19 25 59466-AYNC SKIN LESIONS, OVER 4 07/27/20 49888-CNBR SKIN LESIONS, OVER 4 04/27/20 24 31451-KOXN SKIN LESIONS, OVER 4 01/23/20 49286-WUHO SKIN LESIONS, 2 TO 4 11/21/19 61615-NNII SKIN LESIONS, 2 TO 4 11/12/19 20 85314-OSVJ SKIN LESIONS, 2 TO 4 05/15/20 21 75551-LGMG SKIN LESIONS, 2 TO 4 06/30/20 20 57254-XHWD SKIN LESIONS, 2 TO 4 01/21/20 76145-XAUM SKIN LESIONS, 2 TO 4 08/27/19 53252-WDMF SKIN LESIONS, 2 TO 4 06/18/20 42046-TRHE SKIN LESIONS, 2 TO 4 03/19/20 47569-WYUP SKIN LESIONS, 2 TO 4 01/09/20 19 21672-HXLQ SKIN LESIONS, 2 TO 4 05/02/20 80972-VNBW SKIN LESIONS, 2 TO 4 02/10/20 40029-RZTD SKIN LESIONS, 2 TO 4 12/02/19 21 90023-ZQIE SKIN LESIONS, 2 TO 4 03/31/20 72195-SPNY SKIN LESIONS, 2 TO 4 09/12/19 21 94608-Dlvi. Subungual Hematoma 0 Next Appt Details Provider Name:Jimmy Torres , 08/23/2025 11:00:00 AM, [address] [place] [address], [id number], Insurance Providers Payer Name Payer Address Payer Phone Subscriber Number Group Number Insured Name Patient Relationship to Insured Coverage Start Date Coverage End Date Medicare [employer] [address] [place] [address] [id number] Mark Jay Self - patient is the insured [facility] [address] [place] [address] [id number] Mark Jay Self - patient is the insured 7 Medical (General) History Medical History History ICD Code CAD (Cholesterol) Psoriasis Measles Mumps Chicken pox Joint implants/screws - knee and hip Surgical History Surgery Date(Month/Year) hip replacement 04/1994 knee replacement 04/1996
== END 2025-07-11 09:55 | disposition home or self-care (01) ==
LOC: HO.HMCHD 09:06
PROVIDERS: PCP Student in an Organized Health Care Education/Training Program; Visit Provider Student in an Organized Health Care Education/Training Program
DX: G47.00 Insomnia, unspecified (principal); E78.5 Hyperlipidemia, unspecified; L40.9 Psoriasis, unspecified; R63.5 Abnormal weight gain

== ENCOUNTER → 2025-07-11 09:06 | Outpatient (BNVA) | payer MEDICARE, BC, SELFPAY | PROVIDERS: PCP Internal Medicine; Visit Provider Student in an Organized Health Care Education/Training Program | DX: G47.00 Insomnia, unspecified (principal); E78.5 Hyperlipidemia, unspecified; L40.9 Psoriasis, unspecified; R63.5 Abnormal weight gain; Z13.31 Encounter for screening for depression; Z13.39 Encounter for screening examination for other mental health and behavioral disorders | CPT/HCPCS: 96127; 99212 ==

== ENCOUNTER 2025-07-11 09:21 | Outpatient (AMB) | payer MEDICARE, BC, SELFPAY | END 2025-07-11 09:22 | disposition home or self-care (01) | LOC: HO.HMGAL 09:21 | PROVIDERS: PCP Internal Medicine; Visit Provider Registered Nurse Emergency | DX: J30.89 Other allergic rhinitis (principal) | CPT/HCPCS: 95117; 95165 ==

== ENCOUNTER 2025-07-18 08:27 | Outpatient (AMB) | payer MEDICARE, BC, SELFPAY ==
--- OUTSIDE RECORDS SUMMARY | 2025-07-18 08:43 | XMS_ITS | Patient Health Record ---
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 Role Phone Elicia Montiel Primary Care Provider Jimmy Santa Unavailable [phone] Allergies Allergen (clinical drug ingredient) Drug/Non Drug [...] atherosclerosis of arteries of lower limbs (disorder) ([id number] ) Atherosclerosis of [place] artery of both lower extremities, with unspecified presence of clinical manifestation (I70.203) Active confirmed Vital Signs Blood pressure diastolic 65 mm Hg 04/29/2025 Height 5ft7.5in in 04/29/2025 Blood pressure systolic 127 mm Hg 04/29/2025 Weight 165 lbs 04/29/2025 BMI 25.46 kg/m2 04/29/2025 Procedures Procedure Date Ordered Date Performed Result Body Sit e 79593-IWLXMVP NAIL, 6 OR MORE 07/27/2024 N/A 35887-Efnt Destruction, 1-14 07/27/2024 N/A 15598-XIHLEAW SKIN/TISSUE 07/27/2024 N/A 05596-JIOA SKIN LESIONS, OVER 4 07/27/2024 N/A 70349-LYFEETG NAIL, 6 OR MORE 10/22/2024 N/A 19689-AXVZOND SKIN/TISSUE 10/22/2024 N/A 10924-TLZT SKIN LESIONS, OVER 4 10/22/2024 N/A 80326-BFUOLKD NAIL, 6 OR MORE 01/21/2025 N/A 21983-XDUK SKIN LESIONS, OVER 4 01/21/2025 N/A 67347-HEPTTNH NAIL, 6 OR MORE 04/29/2025 N/A 71538-ITOQ SKIN LESIONS, OVER 4 04/29/2025 N/A Encounters Encounter Location Date Provider Diagnosis [address] [address] 07/27/2024 Jimmy Torres Atherosclerosis of [place] artery of both lower extremities, with unspecified presence of clinical manifestation I70.203 ; Plantar wart B07.0 ; Tinea unguium B35.1 ; Pain in right toe(s) M79.674 ; Pain in left toe(s) M79.675 ; Right foot pain M79.671 and Ischemic ulcer of left foot with fat layer exposed L97.522 [facility] [address] 10/22/2024 Jimmy Torres Atherosclerosis of [place] artery of both lower extremities, with unspecified presence of clinical manifestation I70.203 ; Tinea unguium B35.1 ; Pain in right toe(s) M79.674 ; Pain in left toe(s) M79.675 and Ischemic ulcer of left foot with fat layer exposed L97.[address] [address] 01/21/2025 Jimmy Torres Atherosclerosis of [place] artery of both lower extremities, with unspecified presence of clinical manifestation I70.203 ; Tinea unguium B35.1 ; Pain in right toe(s) M79.674 ; Pain in left toe(s) M79.675 and Ischemic ulcer of left foot with fat layer exposed L97.[address] [address] 04/29/2025 Jimmy Torres Atherosclerosis of [place] artery of both lower extremities, with unspecified presence of clinical manifestation I70.203 ; Tinea unguium B35.1 ; Pain in right toe(s) M79.674 and Pain in left toe(s) M79.[address] [address] 07/27/2024 Jimmy Torres [address] [address] 07/27/2024 Jimmy Torres Assessments Encounter Date Diagnosis (ICD Code) Assessment Notes Treatment Notes Treatment Clinical Notes Section Notes 07/27/2024 Plantar wart (ICD-10 - B07.0) 07/27/2024 Atherosclerosis of [place] artery of both lower extremities, with unspecified presence of clinical manifestation (ICD-10 - I70.203) 10/22/2024 Tinea unguium (ICD-10 - B35.1) 10/22/2024 Atherosclerosis of [place] artery of both lower extremities, with unspecified presence of clinical manifestation (ICD-10 - I70.203) 01/21/2025 Tinea unguium (ICD-10 - B35.1) 01/21/2025 Atherosclerosis of [place] artery of both lower extremities, with unspecified presence of clinical manifestation (ICD-10 - I70.203) 04/29/2025 Tinea unguium (ICD-10 - B35.1) 04/29/2025 Atherosclerosis of [place] artery of both lower extremities, with unspecified [...] X ray : Foot, left 3V 06/18/2024 62301-XWNOLPK NAIL, 6 OR MORE 07/27/2024 50144-ADLBMDN NAIL, 6 OR MORE 01/23/2024 37641-GHHBUNL NAIL, 6 OR MORE 04/27/2024 13944-TJIVMKF NAIL, 6 OR MORE 10/22/2024 66838-JSJEVKV NAIL, 6 OR MORE 01/21/2025 76226-SZJXODF NAIL, 6 OR MORE 04/29/2025 11878-AAMDAAT NAIL, 6 OR MORE 01/08/2019 45079-PPPISCP NAIL, 6 OR MORE 03/19/2019 07835-OVYRUAW NAIL, 6 OR MORE 06/18/2019 23038-KQAKTNF NAIL, 6 OR MORE 08/27/2019 49773-LVHQLFM NAIL, 6 OR MORE 11/12/2019 57938-KHCHIHK NAIL, 6 OR MORE 01/21/2020 33660-EBOKBMB NAIL, 6 OR MORE 03/31/2020 78281-ZJSPNHS NAIL, 6 OR MORE 06/30/2020 58820-UDRTBJY NAIL, 6 OR MORE 09/12/2020 39855-SJTHVGI NAIL, 6 OR MORE 12/01/2020 58644-TOURQSA NAIL, 6 OR MORE 02/09/2021 67016-OCIGFJO NAIL, 6 OR MORE 05/15/2021 26042-NFXQCDO NAIL, 6 OR MORE 11/20/2021 75566-CMRYGHA NAIL, 6 OR MORE 05/02/2022 37234-YSSZICN NAIL, 6 OR MORE 10/21/2023 25984-Hyea Destruction, 1-14 10/21/2023 03646-Ecrh Destruction, 1-14 05/02/2022 08137-Vuea Destruction, 1-14 11/20/2021 83860-Bhiz Destruction, -14 05/15/2021 98445-Tnwu Destruction, -14 02/09/2021 71068-Dmbc Destruction, -14 12/01/2020 12397-Hmtp Destruction, -14 09/12/2020 81603-Joli Destruction, -14 04/27/2024 83285-Uxjq Destruction, -14 01/23/2024 27168-Uwqz Destruction, 1-14 07/27/2024 70889- Debride <25 sq cm 07/06/2024 01332-MIRTDMR SKIN/TISSUE 07/27/2024 30122-PAPDMMQ SKIN/TISSUE 10/22/2024 82991-FTKSRBT SKIN/TISSUE 06/18/2024 04750-VGXI SKIN LESIONS, OVER 4 07/27/20 24 40463-NJBW SKIN LESIONS, OVER 4 01/23/20 91513-MMKL SKIN LESIONS, OVER 4 04/27/20 24 37685-KNPD SKIN LESIONS, OVER 4 10/23/19 25 32575-SYDU SKIN LESIONS, OVER 4 04/29/20 28399-QKKW SKIN LESIONS, OVER 4 01/22/20 25 32567-QSZA SKIN LESIONS, OVER 4 10/21/19 24 00989-SPPU SKIN LESIONS, 2 TO 4 05/02/20 57560-XXOY SKIN LESIONS, 2 TO 4 05/15/20 21 36180-VEGS SKIN LESIONS, 2 TO 4 11/21/19 22 94786-FBCP SKIN LESIONS, 2 TO 4 11/12/19 20 69207-PGUN SKIN LESIONS, 2 TO 4 09/12/19 21 25735-CABV SKIN LESIONS, 2 TO 4 12/02/19 38262-DTAU SKIN LESIONS, 2 TO 4 02/10/20 21 72373-XATU SKIN LESIONS, 2 TO 4 06/30/20 20 06360-QAQU SKIN LESIONS, 2 TO 4 03/31/20 20 09857-XMOW SKIN LESIONS, 2 TO 4 01/21/20 20 00876-OUVU SKIN LESIONS, 2 TO 4 08/27/19 20 82951-CFZV SKIN LESIONS, 2 TO 4 06/18/20 19 82565-PWDZ SKIN LESIONS, 2 TO 4 03/19/20 19 01866-ZNMQ SKIN LESIONS, 2 TO 4 01/09/20 19 76273-Ptgo. Subungual Hematoma 0 Next Appt Details Provider Name:Jimmy Torres , 08/23/2025 11:00:00 AM, [address] [place] [address], [phone], Insurance Providers Payer Name Payer Address Payer Phone Subscriber Number Group Number Insured Name Patient Relationship to Insured Coverage Start Date Coverage End Date Medicare National [employer] [address] [place] [address] [id number] Mark Jay Self - patient is the insured [facility] [address] [place] [address] [id number] Mark Jay Self - patient is the insured 7 Medical (General) History Medical History History ICD Code CAD (Cholesterol) Psoriasis Measles Mumps Chicken pox Joint implants/screws - knee and hip Surgical History Surgery Date(Month/Year) hip replacement 04/1994 knee replacement 04/1996
== END 2025-07-18 08:29 | disposition home or self-care (01) ==
LOC: HO.HMGAL 08:27
PROVIDERS: PCP Internal Medicine; Visit Provider Registered Nurse Emergency
DX: J30.89 Other allergic rhinitis (principal)
CPT/HCPCS: 95117; 95165

== ENCOUNTER 2025-07-25 08:42 | Outpatient (AMB) | payer MEDICARE, BC, SELFPAY ==
[2025-07-25 08:50] VITALS: BP 126/74; PULSE 82; TEMP 36.6; O2SAT 98; BMI 26.7
--- NOTE | 2025-07-25 08:50 | MHC.PC.OV ---
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: No Accompanied by: Self / Same As Patient Allergies Penicillins Allergy (Unknown, Verified 07/25/25 08:51) Unknown Medication List - Last Reconciled 07/25/25 by Rk Monaco MD ascorbate calcium (vitamin C) 500 mg PO DAILY aspirin 81 mg PO DAILY atorvastatin 10 mg PO DAILY cholecalciferol (vitamin D3) 25 mcg PO DAILY guselkumab (Tremfya) mg subcut zolpidem 5 mg PO BEDTIME PRN Tobacco use date assessed: 07/25/25 Fall risk assessment: No Falls in past year Last assessed Fall Risk: 07/25/25 Dental Screening Dental Screen Date: 07/25/25 Did you have a dental visit in the last 12 months?: No Did you have a dental problem in the last 6 months where you did not have access to dental care?: No HPI HPI Comments History of Present Illness Details The patient is a 74 year old male with PMH of psoriasis, insomnnia, vit D deficiency, HLD, presenting for an initial visit to discuss medications and chronic conditions, primarily insomnia. The patient was prescribed Zolpidem around 20 years ago. He has been on 10 mg daily dose and he reports good tolerance of the medication. He was seen recently at another PCP clinic where he was tapered off Ambien. He was started on Melatonin and Trazadone. His doses were increased to Trazadone 100 mg and Melatonin 10 mg. He has been taking trazodone for about a month, but reports it is not effective for his sleep, with sleep duration being as short as three to five hours. Previously, he had success with zolpidem (Ambien), which he took since his heart valve replacement in 2007 and had no issues with. The patient also reports tinnitus in both ears, which is constant. He has been evaluated by an search marketing specialist for this condition, who stated there was nothing they could do. He has never been seen by a sleep specialist. For psoriasis, he receives guselkumab (Tremfya) injections every eight weeks from his body line finisher and feels his condition is well-controlled. His psoriasis is primarily on his elbows, and he denies any associated joint pain. His past medical history is significant for an aortic valve replacement in 2007, for which he takes daily aspirin. His current medications include vitamin C, vitamin D, atorvastatin (Lipitor), and aspirin. [facility] Medical History Weight gain Psoriasis Surgical History History of left hip replacement Hx of left knee surgery History of heart or great vessel surgery Hx of colonoscopy Family History Mother No problems noted. Father No problems noted. Social History Housing: Apartment Alcohol intake: current Alcohol intake frequency: does not drink Patient Tobacco Use Status: Former Tobacco user e-Cigarette/Vaping Use: Former Use service: No Current occupational status: retired Cognitive needs: No Hearing needs: No Vision needs: Yes (reading glasses) Questionnaire PHQ-9 Over the last 2 weeks, how often have you been bothered by any of the following problems? 1. Little interest or pleasure in doing things: not at all 2. Feeling down, depressed, or hopeless: not at all 3. Trouble falling or staying asleep, or sleeping too much: nearly every day 4. Feeling tired or having little energy: not at all 5. Poor appetite or overeating: not at all 6. Feeling bad about yourself - or that you are a failure or have let yourself or your family down: not at all 7. Trouble concentrating on things, such as reading the newspaper or watching television: not at all 8. Moving or speaking so slowly that other people could have noticed. Or the opposite - being so fidgety or restless that you have been moving around a lot more than usual: not at all 9. Thoughts that you would be better off or of hurting yourself in some way: not at all Total score: 3 Source: Developed by Drs. Conor Harry, Darcie Ashton, Isai Colon and colleagues, with an educational demetrio from [employer]. Thrive Questionnaire Date Thrive assessed: 07/11/25 I am a: Patient What is your living situation today?: I have a steady place to live Within the past 12 months, did the food you bought not last and you didn't have the money to get more?: Never true Within the past 12 months, did you worry whether your food would run out before you got money to buy more?: Never true Do you have trouble paying for medicines?: No Do you have trouble getting transportation to medical appointments?: No Do you have trouble paying your heating and electricity bill?: No Do you have trouble taking care of your child, family member or friend?: No Do you have trouble with day-to-day activities such as bathing, preparing meals, shopping, managing finances, etc.?: No Are you currently unemployed and looking for a job?: No Are you interested in more education?: No Please select the resources that you would like help with: None Currently or been in a relationship where the following occur: No concerns reported THRIVE Score: 0 AUDIT C Alcohol Use Questionnaire (AUDIT-C) 1. How often do you have a drink containing alcohol?: Never Total Score: 0 VERNELL-7 AMB Questionnaire VERNELL-7 Date VERNELL - 7 assessed: 07/11/25 Feeling nervous, anxious, or on edge: 0 = Not at all Not being able to stop or control worryin = Not at all Worrying too much about different things: 0 = Not at all Trouble relaxin = Not at all Being so restless that it is hard to sit still: 0 = Not at all Becoming easily annoyed or irritable: 0 = Not at all Feeling afraid as if something awful might happen: 0 = Not at all Total VERNELL-7 score (0-4 normal; 5-9 mild; 10-14 moderate; 15-21 severe): 0 Source: Developed by Drs. Conor Harry, Darcie Ashton, Isai Colon and colleagues, with an educational demetrio from [employer]. Review of Systems Const Details: Positives besides what was mentioned in HPI are in BOLD Constitutional: No Weight Change, No Fever, No Chills, No Night Sweats, No Fatigue, No Malaise ENT/Mouth: No Hearing Changes, No Ear Pain, No Nasal Congestion, No Sinus Pain, No Hoarseness, No sore throat, No Rhinorrhea, No Swallowing Difficulty Eyes: No Eye Pain, No Swelling, No Redness, No Foreign Body, No Discharge, No Vision Changes Cardiovascular: No Chest Pain, No SOB, No PND, No Dyspnea on Exertion, No Orthopnea, No Claudication, No Edema, No Palpitations Respiratory: No Cough, No Sputum, No Wheezing, No Smoke Exposure, No Dyspnea Gastrointestinal: No Nausea, No Vomiting, No Diarrhea, No Constipation, No Pain, No Heartburn, No Anorexia, No Dysphagia, No Hematochezia, No Melena, No Flatulence, No Jaundice Genitourinary: No Dysmenorrhea, No DUB, No Dyspareunia, No Dysuria, No Urinary Frequency, No Hematuria, No Urinary Incontinence, No Urgency, No Flank Pain, No Urinary Flow Changes, No Hesitancy Musculoskeletal: No Arthralgias, No Myalgias, No Joint Swelling, No Joint Stiffness, No Back Pain, No Neck Pain, No Injury History Skin: No Skin Lesions, No Pruritis, No Hair Changes, No Breast/Skin Changes, No Nipple Discharge Neuro: No Weakness, No Numbness, No Paresthesias, No Loss of Consciousness, No Syncope, No Dizziness, No Headache, No Coordination Changes, No Recent Falls Psych: No Anxiety/Panic, No Depression, No Insomnia, No Personality Changes, No Delusions, No Rumination, No SI/HI/AH/VH, No Social Issues, No Memory Changes, No Violence/Abuse Hx., No Eating Concerns Heme/Lymph: No Bruising, No Bleeding, No Transfusions History, No Lymphadenopathy Endocrine: No Polyuria, No Polydipsia, No Temperature Intolerance Physical exam (Primary Care) Vital Signs: Last Vital Signs Temp 97.8 F 07/25/25 08:50 Pulse 82 07/25/25 08:50 BP 126/74 07/25/25 08:50 Pulse Ox 98 07/25/25 08:50 Oxygen Delivery Method Room Air 07/25/25 08:50 BMI result Body Mass Index 26.7 Tobacco/Smoking Status: Tobacco use Status Tobacco use date assessed 07/25/25 07/25/25 08:59 Patient Tobacco Use Status Former Tobacco user 07/25/25 08:59 e-Cigarette/Vaping Use Former Use 07/25/25 08:59 PHQ-9: PHQ-9 Score PHQ-9: Total score 3 07/25/25 08:59 Thrive Assessment: Date of Thrive Assessment Date Thrive assessed 07/11/25 07/25/25 08:59 Currently or been in a relationship where the following occur: No concerns reported Const Other: Pertinent findings are in BOLD GENERAL APPEARANCE NAD, activity normal for age, well developed/ well nourished, no cyanosis, pallor, or diaphoresis. EYES lids/conjunctiva normal. EARS/NOSE/THROAT Mucous membranes moist, nares normal, lips/teeth normal uvula midline without oral pharyngeal erythema, exudate or swelling TMs normal bilaterally. No lymphangitis/lymphedema. HEAD/NECK normocephalic atraumatic, no facial trauma, neck is supple. RESPIRATORY respiratory effort normal, speaks in full sentences, no tripod position, no accessory muscle use. Lungs clear to auscultation without rhonchi, wheezes, rales CARDIAC Regular rate and rhythm, no edema. ABDOMINAL Soft, ND/NT. No evidence of fluid wave. No pulsatile masses on exam, rebound tenderness, Corbin sign or pain over Mcburney's point. MUSCLES/EXTREMITIES No abnormal range of motion, no swelling. SKIN Warm, pink and dry. No rashes, dermatoses, petechiae or lesions. NEUROLOGICAL Speech is clear and appropriate. Normal level of consciousness. Gait and coordination are normal. 5/5 strength in all extremities. PSYCH Normal mood and affect. Judgement/competence is appropriate Coding Level of Care Code Est Pt Level 4 (74042) Diagnoses Insomnia, unspecified type G47.00 Insomnia type: unspecified Psoriasis L40.9 Tinnitus of both ears H93.13 Laterality: bilateral Time Spent (min) 30 Assessment & Plan Assessment & Plan (1) Insomnia: Code(s): G47.00 - Insomnia, unspecified Category: Medical Qualifiers: Insomnia type: unspecified Qualified Code(s): G47.00 - Insomnia, unspecified Plan: - The patient has been on trazodone for one month with no improvement in sleep. - He has a long history of successful use of zolpidem without adverse effects or dependence. - Trazodone will be discontinued via a taper. - The patient will take 50 mg of trazodone for two days, then 25 mg for two days, and then stop. - Zolpidem will be restarted to find the lowest effective dose. - The patient will start zolpidem 5 mg at bedtime when he is on the 25 mg dose of the trazodone taper. - A prescription for 20 tablets of zolpidem 5 mg will be sent to the pharmacy. - Follow-up is scheduled in two weeks to assess the efficacy of the 5 mg dose. - If the 5 mg dose is not effective, the dose will be increased. - The patient reports poor sleep quality since his medication was switched from Zolpidem to Trazadone. - He has been sleeping 3-5 hours per night. - The patient has been on Zolpidem 10 mg for 15-20 years. (2) Psoriasis: Code(s): L40.9 - Psoriasis, unspecified Category: Medical Plan: - The patient's psoriasis is well-controlled with Tremfya injections administered every eight weeks. 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 (3) Tinnitus: Code(s): H93.19 - Tinnitus, unspecified ear Category: Medical Qualifiers: Laterality: bilateral Qualified Code(s): H93.13 - Tinnitus, bilateral Plan: - The patient reports constant ringing in both ears and has previously seen an ENT specialist with no resolution. - No further workup or intervention for tinnitus was discussed at this visit. Plan Lab: Done recently. Shingles 2 doses when >50 yo. Completed. COVID: two doses. completed. Pneumococcal: >50 yo. 18-49 with CKD, lung disease, weakened immune system, Heart disease, DM, cochlear implant. Completed. Flu vaccine: Completed this year. Tdap: every 10 years. We will administer in two weeks since the patient since the patient had his Allergy shot today Am. Colonoscopy: 45-75. Scheduled in 09/2024. AAA: 65 -75. NI[address] CT lun - 80. NI. PSA: 50 -70 every two years. Done recently. HIV: Next physical. HCV: Next physical. I discussed the plan for managing the patient's insomnia. Since trazodone has been ineffective, we will stop it. I advised a gradual taper off the trazodone by taking 50 mg for two nights, then 25 mg for two nights before stopping completely to avoid abrupt discontinuation. We discussed restarting zolpidem (Patriciaien), given his long history of effective use without issues. I explained the goal is to find the lowest effective dose, so we will start with 5 mg. I instructed him to begin the zolpidem 5 mg once he is down to the 25 mg dose of trazodone. We will have a follow-up visit in two weeks to assess his response to the 5 mg dose and determine if an increase is necessary. We also discussed that his Tdap vaccine is due but deferred it today since he just received allergy shots; we will administer it at a future appointment. Medications: New zolpidem 5 mg PO BEDTIME PRN 20 tabs 0RF sleep Discontinued bisacodyl Take four tablets once for 1 day per colonoscopy instructions Discontinued Reason: Duplicate 5 mg PO ONCE 1 day 4 tabs 0RF trazodone Discontinued Reason: Patient Refused 100 mg PO BEDTIME PRN 30 tabs 0RF sleep
== END 2025-07-25 09:23 | disposition home or self-care (01) ==
LOC: HO.HMCH 08:43
PROVIDERS: PCP Internal Medicine; Visit Provider Internal Medicine
DX: G47.00 Insomnia, unspecified (principal); L40.9 Psoriasis, unspecified; H93.13 Tinnitus, bilateral

== ENCOUNTER → 2025-07-25 08:42 | Outpatient (BNVA) | payer MEDICARE, BC, SELFPAY | PROVIDERS: PCP Internal Medicine; Visit Provider Internal Medicine | DX: G47.00 Insomnia, unspecified (principal); L40.9 Psoriasis, unspecified; H93.13 Tinnitus, bilateral | CPT/HCPCS: 99212 ==

== ENCOUNTER 2025-07-25 08:47 | Outpatient (AMB) | payer MEDICARE, BC, SELFPAY | END 2025-07-25 08:47 | disposition home or self-care (01) | LOC: HO.HMGAL 08:47 | PROVIDERS: PCP Internal Medicine; Visit Provider Registered Nurse Emergency | DX: J30.89 Other allergic rhinitis (principal) | CPT/HCPCS: 95117; 95165 ==

== ENCOUNTER 2025-08-01 08:13 | Outpatient (AMB) | payer MEDICARE, BC, SELFPAY | END 2025-08-01 08:15 | disposition home or self-care (01) | LOC: HO.HMGAL 08:13 | PROVIDERS: PCP Internal Medicine; Visit Provider Registered Nurse Emergency | DX: J30.89 Other allergic rhinitis (principal) | CPT/HCPCS: 95117; 95165 ==

== ENCOUNTER 2025-08-08 08:14 | Outpatient (AMB) | payer MEDICARE, BC, SELFPAY ==
--- OUTSIDE RECORDS SUMMARY | 2025-08-08 08:18 | XMS_ITS | Patient Health Record ---
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 Name Role Phone Elicia Montiel Primary Care Provider Jimmy Santa Unavailable [phone] Allergies Allergen (clinical drug ingredient) Drug/Non Drug [...] atherosclerosis of arteries of lower limbs (disorder) ([id number] ) Atherosclerosis of [place] artery of both lower extremities, with unspecified presence of clinical manifestation (I70.203) Active confirmed Vital Signs Blood pressure diastolic 65 mm Hg 04/29/2025 Height 5ft7.5in in 04/29/2025 Blood pressure systolic 127 mm Hg 04/29/2025 Weight 165 lbs 04/29/2025 BMI 25.46 kg/m2 04/29/2025 Procedures Procedure Date Ordered Date Performed Result Body Sit e 13579-HYHGBBE NAIL, 6 OR MORE 10/22/2024 N/A 39493-XLGVKSD SKIN/TISSUE 10/22/2024 N/A 72631-WWMO SKIN LESIONS, OVER 4 10/22/2024 N/A 79631-AYZJJMV NAIL, 6 OR MORE 01/21/2025 N/A 08489-PZVB SKIN LESIONS, OVER 4 01/21/2025 N/A 91513-RTJMIFB NAIL, 6 OR MORE 04/29/2025 N/A 42087-QGJN SKIN LESIONS, OVER 4 04/29/2025 N/A Encounters Encounter Location Date Provider Diagnosis [address] [address] 10/22/2024 Jimmyfrancisco CarsonBrian Atherosclerosis of [place] artery of both lower extremities, with unspecified presence of clinical manifestation I70.203 ; Tinea unguium B35.1 ; Pain in right toe(s) M79.674 ; Pain in left toe(s) M79.675 and Ischemic ulcer of left foot with fat layer exposed L97.[address] [address] 01/21/2025 Jimmy Brian Atherosclerosis of [place] artery of both lower extremities, with unspecified presence of clinical manifestation I70.203 ; Tinea unguium B35.1 ; Pain in right toe(s) M79.674 ; Pain in left toe(s) M79.675 and Ischemic ulcer of left foot with fat layer exposed L97.[address] [address] 04/29/2025 Jimmy Brian Atherosclerosis of [place] artery of both lower extremities, with unspecified presence of clinical manifestation I70.203 ; Tinea unguium B35.1 ; Pain in right toe(s) M79.674 and Pain in left toe(s) M79.675 Assessments Encounter Date Diagnosis (ICD Code) Assessment Notes Treatment Notes Treatment Clinical Notes Section Notes 10/22/2024 Tinea unguium (ICD-10 - B35.1) 10/22/2024 Atherosclerosis of [place] artery of both lower extremities, with unspecified presence of clinical manifestation (ICD-10 - I70.203) 01/21/2025 Tinea unguium (ICD-10 - B35.1) 01/21/2025 Atherosclerosis of [place] artery of both lower extremities, with unspecified presence of clinical manifestation (ICD-10 - I70.203) 04/29/2025 Tinea unguium (ICD-10 - B35.1) 04/29/2025 Atherosclerosis of [place] artery of both lower extremities, with unspecified [...] X ray : Foot, left 3V 06/18/2024 85306-ORZBXCK NAIL, 6 OR MORE 07/27/2024 96663-CLXYWEQ NAIL, 6 OR MORE 01/23/2024 06274-CKVQOZH NAIL, 6 OR MORE 04/27/2024 80814-JNCGXBS NAIL, 6 OR MORE 10/22/2024 43750-UAWCJRB NAIL, 6 OR MORE 01/21/2025 65921-ACRQMGU NAIL, 6 OR MORE 04/29/2025 22724-IUTMKRE NAIL, 6 OR MORE 01/08/2019 55355-IRUJVGJ NAIL, 6 OR MORE 03/19/2019 04713-AAIWYJM NAIL, 6 OR MORE 06/18/2019 50434-DHIXRLH NAIL, 6 OR MORE 08/27/2019 40761-RQOMPKO NAIL, 6 OR MORE 11/12/2019 04750-IVCRCSR NAIL, 6 OR MORE 01/21/2020 67970-CQJFPVB NAIL, 6 OR MORE 03/31/2020 86980-XCZHLTD NAIL, 6 OR MORE 06/30/2020 94664-ZNAMAJA NAIL, 6 OR MORE 09/12/2020 08286-GJLPMNB NAIL, 6 OR MORE 12/01/2020 29109-ZJCNYGV NAIL, 6 OR MORE 02/09/2021 79075-XWODQAE NAIL, 6 OR MORE 05/15/2021 18949-BGVFHPL NAIL, 6 OR MORE 11/20/2021 50199-CCLXQIX NAIL, 6 OR MORE 05/02/2022 90050-GHBBMFL NAIL, 6 OR MORE 10/21/2023 91691-Usfv Destruction, 1-14 10/21/2023 47058-Oqig Destruction, -14 05/02/2022 36462-Vmzh Destruction, -14 11/20/2021 30762-Tnpm Destruction, -14 05/15/2021 08826-Lgbk Destruction, -14 02/09/2021 12529-Raiu Destruction, -14 12/01/2020 41347-Kxvd Destruction, -14 09/12/2020 65226-Nott Destruction, -14 04/27/2024 44361-Oxzp Destruction, -01/23/2024 80682-Piee Destruction, -14 07/27/2024 43780- Debride <25 sq cm 07/06/2024 76494-MKIRDBM SKIN/TISSUE 07/27/2024 76202-ZNXPYOP SKIN/TISSUE 10/22/2024 98720-OVZHARN SKIN/TISSUE 06/18/2024 72716-WWIB SKIN LESIONS, OVER 4 07/27/20 24 36927-HYYG SKIN LESIONS, OVER 4 01/23/20 08034-JHJO SKIN LESIONS, OVER 4 04/27/20 24 14621-OGKI SKIN LESIONS, OVER 4 10/23/19 19546-UNZT SKIN LESIONS, OVER 4 04/29/20 27113-CYTG SKIN LESIONS, OVER 4 01/22/20 60060-ZCRZ SKIN LESIONS, OVER 4 10/21/19 76885-LUCB SKIN LESIONS, 2 TO 4 05/02/20 50785-VYST SKIN LESIONS, 2 TO 4 05/15/20 19324-MBFI SKIN LESIONS, 2 TO 4 11/21/19 93401-MCGU SKIN LESIONS, 2 TO 4 11/12/19 20 22303-CRWB SKIN LESIONS, 2 TO 4 09/12/19 21 52444-ZMUE SKIN LESIONS, 2 TO 4 12/02/19 21 56488-JJWV SKIN LESIONS, 2 TO 4 02/10/20 13252-CARV SKIN LESIONS, 2 TO 4 06/30/20 20 43956-RJOM SKIN LESIONS, 2 TO 4 03/31/20 20 76935-GDJJ SKIN LESIONS, 2 TO 4 01/21/20 20 45584-JBNN SKIN LESIONS, 2 TO 4 08/27/19 06969-GGTR SKIN LESIONS, 2 TO 4 06/18/20 81055-CQVP SKIN LESIONS, 2 TO 4 03/19/20 77672-ITGA SKIN LESIONS, 2 TO 4 01/09/20 19 70093-Voit. Subungual Hematoma 0 Next Appt Details Provider Name:Jimmy Lonnie Torres , 08/23/2025 11:00:00 AM, [address] [place], [address], Insurance Providers Payer Name Payer Address Payer Phone Subscriber Number Group Number Insured Name Patient Relationship to Insured Coverage Start Date Coverage End Date Medicare National Govt Svcs Inc [address] [place] [address] [id number] Mark Jay Self - patient is the insured [facility] [address] [place] [address] [id number] Mark Jay Self - patient is the insured 7 Medical (General) History Medical History History ICD Code CAD (Cholesterol) Psoriasis Measles Mumps Chicken pox Joint implants/screws - knee and hip Surgical History Surgery Date(Month/Year) hip replacement 04/1994 knee replacement 04/1996
== END 2025-08-08 08:23 | disposition home or self-care (01) ==
LOC: HO.HMGAL 08:14
PROVIDERS: PCP Internal Medicine; Visit Provider Registered Nurse Emergency
DX: J30.89 Other allergic rhinitis (principal)
CPT/HCPCS: 95117; 95165

== ENCOUNTER 2025-08-09 09:09 | Outpatient (AMB) | payer MEDICARE, BC, SELFPAY ==
[2025-08-09 09:39] VITALS: BP 158/72; PULSE 83; RESP 16; TEMP 36.3; O2SAT 97; BMI 26.8
--- NOTE | 2025-08-09 09:39 | A.OFFPC_ITS ---
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 Required: No Accompanied by: Self / Same As Patient Allergies Penicillins Allergy (Unknown, Verified 08/09/25 09:39) Unknown Medication List - Last Reconciled 08/09/25 by Rk Monaco MD ascorbate calcium (vitamin C) 1,000 mg PO DAILY aspirin 81 mg PO DAILY atorvastatin 10 mg PO DAILY cetirizine (Zyrtec) 10 mg PO DAILY PRN cholecalciferol (vitamin D3) 25 mcg PO DAILY guselkumab (Tremfya) mg subcut zolpidem 5 mg PO BEDTIME PRN Tobacco use date assessed: 08/09/25 Fall risk assessment: No Falls in past year Last assessed Fall Risk: 08/09/25 Dental Screening Dental Screen Date: 08/09/25 Did you have a dental visit in the last 12 months?: No Did you have a dental problem in the last 6 months where you did not have access to dental care?: No Was dental information given to patient?: Patient has dentist HPI HPI Comments History of Present Illness Details The patient is a 74-year-old male with PMH of psoriasis, insomnnia, vit D deficiency, HLD presenting for follow-up of chronic conditions, primarily insomnia, and for medication management. The patient has a history of chronic insomnia and was previously taking zolpidem 10 mg for 20 years, which he found effective. His dose was recently lowered to 5 mg, which he reports is less effective, providing only about six hours of sleep compared to the 7-7.5 hours he achieved with the 10 mg dose. He reports less restorative sleep on the lower dose and recently self-administered two 5 mg tablets, which he felt was more effective. Past attempts to wean off zolpidem have been unsuccessful, and he has tried other therapies including melatonin and Trazadone without benefit. He has a history of alcohol and tobacco use to help with sleep but has been abstinent since 2007 and worries about returning to these habits if his insomnia is not managed. The patient also has a history of psoriasis, which is well-controlled with injections every eight weeks. He has tinnitus, which is being monitored. He also reports receiving allergy shots. He received Zolpidem today. [facility] Medical History Weight gain Psoriasis Surgical History History of left hip replacement Hx of left knee surgery History of heart or great vessel surgery Hx of colonoscopy Family History Mother No problems noted. Father No problems noted. Social History Housing: Apartment Alcohol intake: current Alcohol intake frequency: does not drink Patient Tobacco Use Status: Former Tobacco user e-Cigarette/Vaping Use: Former Use service: No Current occupational status: retired Cognitive needs: No Hearing needs: No Vision needs: Yes (reading glasses) Questionnaire PHQ-9 Over the last 2 weeks, how often have you been bothered by any of the following problems? 1. Little interest or pleasure in doing things: not at all 2. Feeling down, depressed, or hopeless: not at all 3. Trouble falling or staying asleep, or sleeping too much: nearly every day 4. Feeling tired or having little energy: not at all 5. Poor appetite or overeating: not at all 6. Feeling bad about yourself - or that you are a failure or have let yourself or your family down: not at all 7. Trouble concentrating on things, such as reading the newspaper or watching television: not at all 8. Moving or speaking so slowly that other people could have noticed. Or the opposite - being so fidgety or restless that you have been moving around a lot more than usual: not at all 9. Thoughts that you would be better off or of hurting yourself in some way: not at all Total score: 3 Depression Screening Interpretation: Positive Depression Screening Done: Yes Source: Developed by Drs. Conor Harry, Darcie Ashton, Isai Colon and colleagues, with an educational demetrio from [employer]. Thrive Questionnaire Date Thrive assessed: 08/09/25 I am a: Patient What is your living situation today?: I have a steady place to live Within the past 12 months, did the food you bought not last and you didn't have the money to get more?: Never true Within the past 12 months, did you worry whether your food would run out before you got money to buy more?: Never true Do you have trouble paying for medicines?: No Do you have trouble getting transportation to medical appointments?: No Do you have trouble paying your heating and electricity bill?: No Do you have trouble taking care of your child, family member or friend?: No Do you have trouble with day-to-day activities such as bathing, preparing meals, shopping, managing finances, etc.?: No Are you currently unemployed and looking for a job?: No Are you interested in more education?: No Currently or been in a relationship where the following occur: No concerns reported THRIVE Score: 0 AUDIT C Alcohol Use Questionnaire (AUDIT-C) 1. How often do you have a drink containing alcohol?: Never Total Score: 0 VERNELL-7 AMB Questionnaire VERNELL-7 Date VERNELL - 7 assessed: 08/09/25 Feeling nervous, anxious, or on edge: 0 = Not at all Not being able to stop or control worryin = Not at all Worrying too much about different things: 0 = Not at all Trouble relaxin = Not at all Being so restless that it is hard to sit still: 0 = Not at all Becoming easily annoyed or irritable: 0 = Not at all Feeling afraid as if something awful might happen: 0 = Not at all Total VERNELL-7 score (0-4 normal; 5-9 mild; 10-14 moderate; 15-21 severe): 0 Source: Developed by Drs. Conor Harry, Darcie Ashton, Isai Colon and colleagues, with an educational demetrio from [employer]. Review of Systems Const Details: As per HPI. Physical exam (Primary Care) Vital Signs: Last Vital Signs Temp 97.3 F 08/09/25 09:39 Pulse 83 08/09/25 09:39 Resp 16 08/09/25 09:39 BP 158/72 H 08/09/25 09:39 Pulse Ox 97 08/09/25 09:39 Oxygen Delivery Method Room Air 08/09/25 09:39 BMI result Body Mass Index 26.8 Tobacco/Smoking Status: Tobacco use Status Tobacco use date assessed 08/09/25 08/09/25 09:47 Patient Tobacco Use Status Former Tobacco user 08/09/25 09:47 e-Cigarette/Vaping Use Former Use 08/09/25 09:47 PHQ-9: PHQ-9 Score PHQ-9: Total score 3 08/09/25 10:07 Depression Screening Interpretation: Positive Thrive Assessment: Date of Thrive Assessment Date Thrive assessed 08/09/25 08/09/25 09:47 Currently or been in a relationship where the following occur: No concerns reported Const Other: Pertinent findings are in BOLD GENERAL APPEARANCE NAD, activity normal for age, well developed/ well nourished, no cyanosis, pallor, or diaphoresis. EYES lids/conjunctiva normal. EARS/NOSE/THROAT Mucous membranes moist, nares normal, lips/teeth normal uvula midline without oral pharyngeal erythema, exudate or swelling TMs normal bilaterally. No lymphangitis/lymphedema. HEAD/NECK normocephalic atraumatic, no facial trauma, neck is supple. RESPIRATORY respiratory effort normal, speaks in full sentences, no tripod position, no accessory muscle use. Lungs clear to auscultation without rhonchi, wheezes, rales CARDIAC Regular rate and rhythm, no edema. ABDOMINAL Soft, ND/NT. No evidence of fluid wave. No pulsatile masses on exam, rebound tenderness, Corbin sign or pain over Mcburney's point. MUSCLES/EXTREMITIES No abnormal range of motion, no swelling. SKIN Warm, pink and dry. No rashes, dermatoses, petechiae or lesions. NEUROLOGICAL Speech is clear and appropriate. Normal level of consciousness. Gait and coordination are normal. 5/5 strength in all extremities. PSYCH Normal mood and affect. Judgement/competence is appropriate Immunizations Boostrix Tdap 2.5 Lf unit-8 mcg-5 Lf/0.5 mL intramuscular syringe Performing Provider: Rk Monaco MD [facility] Administered by: Nadine Hutchison LPN on 08/09/25 10:24 Dose Route Admin Location Dispensed Lot Number Expiration Date [facility] [employer] In[employer] 0.5 mL IM Right Deltoid 0.5 mL [id number] 01/28/28 27264-786-96 [employer] Total Dispensed Waste 0.5 mL 0 % VIS Given Date VIS Provided VIS Publication Date 08/09/25 Single Vaccine 21 Eligibility Eligibility Date Funding Source Not [facility] Eligible 08/09/25 Private Coding Level of Care Code Est Pt Level 4 (33378) Diagnoses Insomnia, unspecified type G47.00 Insomnia type: unspecified Psoriasis L40.9 Tinnitus of both ears H93.13 Laterality: bilateral Time Spent (min) 30 Assessment & Plan Assessment & Plan (1) Insomnia: Code(s): G47.00 - Insomnia, unspecified Category: Medical Qualifiers: Insomnia type: unspecified Qualified Code(s): G47.00 - Insomnia, unspecified Plan: - The patient reports that zolpidem 5 mg provides inadequate sleep and requests to return to the 10 mg dose. - A thorough discussion was held regarding the increased safety risks of zolpidem in older adults, including falls and cognitive decline. - The plan is to continue zolpidem at 5 mg nightly, and a refill will be provided. - The patient will be referred to a sleep specialist for further evaluation and management. (2) Psoriasis: Code(s): L40.9 - Psoriasis, unspecified Category: Medical Plan: - The patient's psoriasis is well-controlled with injections every eight weeks. - He will continue his current treatment regimen. (3) Tinnitus: Code(s): H93.19 - Tinnitus, unspecified ear Category: Medical Qualifiers: Laterality: bilateral Qualified Code(s): H93.13 - Tinnitus, bilateral Plan: - The patient's tinnitus is stable. - The plan is to continue monitoring. Plan I discussed the management of the patient's chronic insomnia at length. I explained my significant concerns regarding the use of zolpidem in older adults, citing risks such as falls, cognitive decline, and next-day impairment, and noted that it is considered a potentially inappropriate medication for his age group. The patient acknowledged these risks but emphasized that the 5 mg dose is not effective for him. We mutually agreed to continue the 5 mg dose for now, not increase it to 10 mg, and to proceed with a referral to a sleep specialist for further evaluation. I confirmed we would refill his 5 mg prescription. We also confirmed his preventative care plan, including receiving a Tdap vaccine today and proceeding with his scheduled colonoscopy. We will follow up in six weeks to discuss progress. Orders: Orders TDaP Immunization Today Z23 - Encounter for immunization Referrals Sleep Medicine Referral G47.00 - Insomnia, unspecified Medications: Refilled zolpidem 5 mg PO BEDTIME PRN 30 tabs 0RF sleep
--- OUTSIDE RECORDS SUMMARY | 2025-08-09 09:44 | XMS_ITS | Patient Health Record ---
Author Organization [facility] Address [address] 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 Name Role Phone Elicia Montiel Primary Care Provider Jimmy Santa Unavailable [phone] Allergies Allergen (clinical drug ingredient) Drug/Non Drug [...] atherosclerosis of arteries of lower limbs (disorder) ([id number] ) Atherosclerosis of [place] artery of both lower extremities, with unspecified presence of clinical manifestation (I70.203) Active confirmed Vital Signs Blood pressure diastolic 65 mm Hg 04/29/2025 Height 5ft7.5in in 04/29/2025 Blood pressure systolic 127 mm Hg 04/29/2025 Weight 165 lbs 04/29/2025 BMI 25.46 kg/m2 04/29/2025 Procedures Procedure Date Ordered Date Performed Result Body Sit e 70735-AVSCVWU NAIL, 6 OR MORE 10/22/2024 N/A 28985-DYHETRT SKIN/TISSUE 10/22/2024 N/A 55701-QPSL SKIN LESIONS, OVER 4 10/22/2024 N/A 96767-LIXDPYF NAIL, 6 OR MORE 01/21/2025 N/A 85875-CNBW SKIN LESIONS, OVER 4 01/21/2025 N/A 02138-HUHOJSB NAIL, 6 OR MORE 04/29/2025 N/A 12257-PLSH SKIN LESIONS, OVER 4 04/29/2025 N/A Encounters Encounter Location Date Provider Diagnosis [address] [address] 10/22/2024 Jimmyfrancisco CarsonBrian Atherosclerosis of [place] artery of both lower extremities, with unspecified presence of clinical manifestation I70.203 ; Tinea unguium B35.1 ; Pain in right toe(s) M79.674 ; Pain in left toe(s) M79.675 and Ischemic ulcer of left foot with fat layer exposed L97.[address] [address] 01/21/2025 Jimmy Brian Atherosclerosis of [place] artery of both lower extremities, with unspecified presence of clinical manifestation I70.203 ; Tinea unguium B35.1 ; Pain in right toe(s) M79.674 ; Pain in left toe(s) M79.675 and Ischemic ulcer of left foot with fat layer exposed L97.[address] [address] 04/29/2025 Jimmy Brian Atherosclerosis of [place] artery of both lower extremities, with unspecified presence of clinical manifestation I70.203 ; Tinea unguium B35.1 ; Pain in right toe(s) M79.674 and Pain in left toe(s) M79.675 Assessments Encounter Date Diagnosis (ICD Code) Assessment Notes Treatment Notes Treatment Clinical Notes Section Notes 10/22/2024 Tinea unguium (ICD-10 - B35.1) 10/22/2024 Atherosclerosis of [place] artery of both lower extremities, with unspecified presence of clinical manifestation (ICD-10 - I70.203) 01/21/2025 Tinea unguium (ICD-10 - B35.1) 01/21/2025 Atherosclerosis of [place] artery of both lower extremities, with unspecified presence of clinical manifestation (ICD-10 - I70.203) 04/29/2025 Tinea unguium (ICD-10 - B35.1) 04/29/2025 Atherosclerosis of [place] artery of both lower extremities, with unspecified [...] X ray : Foot, left 3V 06/18/2024 95635-KZHIMIG NAIL, 6 OR MORE 07/27/2024 27661-FRYRXEL NAIL, 6 OR MORE 01/23/2024 77353-VBBEISP NAIL, 6 OR MORE 04/27/2024 86749-XIQZNIH NAIL, 6 OR MORE 10/22/2024 00813-KLRIYGO NAIL, 6 OR MORE 01/21/2025 51537-WNOLPBC NAIL, 6 OR MORE 04/29/2025 45498-UTAEMEI NAIL, 6 OR MORE 01/08/2019 64738-CUPRLBJ NAIL, 6 OR MORE 03/19/2019 02179-DMJNMEZ NAIL, 6 OR MORE 06/18/2019 49502-MFCKQKX NAIL, 6 OR MORE 08/27/2019 02847-MQTFBPK NAIL, 6 OR MORE 11/12/2019 90930-YUBGOHI NAIL, 6 OR MORE 01/21/2020 89027-XWOWWNH NAIL, 6 OR MORE 03/31/2020 49226-NAZGDND NAIL, 6 OR MORE 06/30/2020 40564-PNXAHYG NAIL, 6 OR MORE 09/12/2020 58344-PQBGUED NAIL, 6 OR MORE 12/01/2020 32188-HPRLWUM NAIL, 6 OR MORE 02/09/2021 47386-YGHQCPB NAIL, 6 OR MORE 05/15/2021 13287-NZWQCVQ NAIL, 6 OR MORE 11/20/2021 47747-WDBIUET NAIL, 6 OR MORE 05/02/2022 24115-LWEMAZS NAIL, 6 OR MORE 10/21/2023 67786-Xcde Destruction, 1-14 10/21/2023 20444-Umyf Destruction, -14 05/02/2022 82539-Izyq Destruction, -14 11/20/2021 56535-Gyks Destruction, -14 05/15/2021 72180-Rxkc Destruction, -14 02/09/2021 12472-Wuwm Destruction, -14 12/01/2020 50268-Koow Destruction, -14 09/12/2020 00048-Nfcg Destruction, -14 04/27/2024 71109-Bjiu Destruction, -01/23/2024 06175-Ebqm Destruction, -14 07/27/2024 23921- Debride <25 sq cm 07/06/2024 40834-RYOMBBR SKIN/TISSUE 07/27/2024 53594-SMRSHRX SKIN/TISSUE 10/22/2024 61019-UDUGOSQ SKIN/TISSUE 06/18/2024 62714-YMEY SKIN LESIONS, OVER 4 07/27/20 24 80006-YQUR SKIN LESIONS, OVER 4 01/23/20 21716-YSCB SKIN LESIONS, OVER 4 04/27/20 24 37785-BXKC SKIN LESIONS, OVER 4 10/23/19 47358-APQH SKIN LESIONS, OVER 4 04/29/20 11519-XHXN SKIN LESIONS, OVER 4 01/22/20 42759-YGVD SKIN LESIONS, OVER 4 10/21/19 71425-ZLWX SKIN LESIONS, 2 TO 4 05/02/20 36109-JNZM SKIN LESIONS, 2 TO 4 05/15/20 61810-VGHK SKIN LESIONS, 2 TO 4 11/21/19 65062-IYOB SKIN LESIONS, 2 TO 4 11/12/19 20 61467-QMAQ SKIN LESIONS, 2 TO 4 09/12/19 21 30754-ERFX SKIN LESIONS, 2 TO 4 12/02/19 21 42551-AZPH SKIN LESIONS, 2 TO 4 02/10/20 27935-FYJF SKIN LESIONS, 2 TO 4 06/30/20 20 00921-ISXQ SKIN LESIONS, 2 TO 4 03/31/20 20 03336-SGSF SKIN LESIONS, 2 TO 4 01/21/20 20 07019-DPOZ SKIN LESIONS, 2 TO 4 08/27/19 49263-SLSC SKIN LESIONS, 2 TO 4 06/18/20 05735-UOQC SKIN LESIONS, 2 TO 4 03/19/20 49411-TOCT SKIN LESIONS, 2 TO 4 01/09/20 19 38355-Sftx. Subungual Hematoma 0 Next Appt Details Provider Name:Jimmy Lonnie Torres , 08/23/2025 11:00:00 AM, [address] [place], [address], Insurance Providers Payer Name Payer Address Payer Phone Subscriber Number Group Number Insured Name Patient Relationship to Insured Coverage Start Date Coverage End Date Medicare National Govt Sv[employer] [address] [place] [address] [id number] Mark Jay Self - patient is the insured [facility] [address] [place] [address] [id number] Mark Jay Self - patient is the insured 7 Medical (General) History Medical History History ICD Code CAD (Cholesterol) Psoriasis Measles Mumps Chicken pox Joint implants/screws - knee and hip Surgical History Surgery Date(Month/Year) hip replacement 04/1994 knee replacement 04/1996
== END 2025-08-09 10:26 | disposition home or self-care (01) ==
LOC: HO.HMCH 09:10
PROVIDERS: PCP Internal Medicine; Visit Provider Internal Medicine
DX: G47.00 Insomnia, unspecified (principal); L40.9 Psoriasis, unspecified; H93.13 Tinnitus, bilateral; Z23 Encounter for immunization

== ENCOUNTER → 2025-08-09 09:09 | Outpatient (BNVA) | payer MEDICARE, BC, SELFPAY | PROVIDERS: PCP Internal Medicine; Visit Provider Internal Medicine | DX: H93.13 Tinnitus, bilateral (principal); G47.00 Insomnia, unspecified; L40.9 Psoriasis, unspecified; Z23 Encounter for immunization; Z13.31 Encounter for screening for depression; Z13.39 Encounter for screening examination for other mental health and behavioral disorders | CPT/HCPCS: 90471; 90715; 96127; 99212 ==